=== PATIENT | female | born 1955 | race Caucasian/White ===

== ENCOUNTER 2017-03-27 09:25 | Day surgery (SDC) | payer OTHER, SELFPAY | END 2017-03-27 14:25 | disposition home or self-care (01) | PROVIDERS: Family Provider Family Medicine; Visit Provider Orthopaedic Surgery | DX: G56.02 Carpal tunnel syndrome, left upper limb (principal); M67.432 Ganglion, left wrist | CPT/HCPCS: 64721; 25111; 80048; 96375 ==

== ENCOUNTER → 2017-12-15 08:26 | Outpatient (CLI) | payer OTHER, SELFPAY ==
--- NOTE | 2017-12-15 08:31 | MM_ITS ---
MM Dig screening mamm BI w/CAD ORDERING PHYSICIAN : Maykel Hernandez MD PATIENT AGE: 62 years GENDER: Female COMPARISON: November 2016, May 2012, INDICATION: ITS.REASON: SCREENING no hormones. No new complaints. Previous benign excisional biopsy right breast. Family history. Patient's daughter with breast cancer TECHNIQUE: Standard CC and MLO images were obtained. R2 CAD reviewed. FINDINGS: Moderate density breast with fibrolinear elements most evident at the superior breast bilateral. Stable overall architectural pattern with no suspicious or dominant mass. No suspicious calcifications. RIGHT BREAST:No significant new findings. LEFT BREAST:No significant new findings follow-up in one year Stable mild asymmetry Fibroglandular elements towards the superior breast IMPRESSION: Stable mammogram. No significant new findings either breast. Bilateral follow-up in one year recommended. BI-RADS Category: 1 Negative RECOMMENDED FOLLOW-UP: 1YR 1 YEAR FOLLOW-UP (A letter has been sent to the patient regarding results of the study.)
== END ==
PROVIDERS: PCP Family Medicine; Visit Provider Family Medicine
DX: Z12.31 Encounter for screening mammogram for malignant neoplasm of breast (principal)
CPT/HCPCS: 77067

== ENCOUNTER → 2018-08-05 13:29 | Outpatient (CLI) | payer MEDICARE, OTHER, SELFPAY ==
--- NOTE | 2018-08-05 | CI_ITS ---
Cerebrovascular Exam Indications: 785.9 Bruit. IMPRESSIONS 1. The bilateral vertebral arteries are patent with normal antegrade flow. 2. Study suggests 20-49% stenosis involving the right internal carotid artery. Disease progression from the study of 26-Feb-2007. 3. Study suggests 20-49% (UPPER END)stenosis involving the left internal carotid artery. Disease progression from the study of 26-Feb-2007. 4. Study suggests>50% stenosis involving the left external carotid artery. 5. Bilateral thyroid nodules seen. Suggest dedicated thyroid ultrasound History: Risk factors: Hypertension. Carotid duplex study. Complete study and Doppler flow study including spectral analysis, color and healy scale imaging. Height: Height: 157.5cm. Height: 62in. Weight: Weight: 70.8kg. Weight: 155.7lb. Body mass index: BMI: 28.5kg/m^2. Body surface area: BSA: 1.78m^2. Location: Vascular laboratory. Patient status: Outpatient. Tables: Arterial flow: + +--------+--------+ Location V sys V ed + +--------+--------+ Right CCA - proximal 88cm/s 15.9cm/s + +--------+--------+ Right CCA - distal 93.4cm/s 20cm/s + +--------+--------+ Right ECA 258cm/s 29.1cm/s + +--------+--------+ Right ICA - proximal 112cm/s 27.4cm/s + +--------+--------+ Right ICA - mid 110cm/s 20cm/s + +--------+--------+ Right ICA - distal 91.9cm/s 25.9cm/s + +--------+--------+ Right vertebral 130cm/s 23cm/s + +--------+--------+ Left CCA - proximal 83cm/s 25.9cm/s + +--------+--------+ Left CCA - distal 76.4cm/s 23.7cm/s + +--------+--------+ Left ECA 431cm/s 66.6cm/s + +--------+--------+ Left ICA - proximal 122cm/s 31.9cm/s + +--------+--------+ Left ICA - mid 116cm/s 28.7cm/s + +--------+--------+ Left ICA - distal 106cm/s 32.2cm/s + +--------+--------+ Left vertebral 87.4cm/s 17.5cm/s + +--------+--------+ Velocity ratios: + + + + + + Right, V sys Right, V ed Left, V sys Left, V ed + + + + + + Max ICA/dist CCA 1.2 1.37 1.6 1.36 + + + + + + (Report amended ) Electronically signed by: Buzz Shin [id number]
== END ==
PROVIDERS: PCP Family Medicine; Visit Provider Family Medicine
DX: R09.89 Other specified symptoms and signs involving the circulatory and respiratory systems (principal)
CPT/HCPCS: 93880

== ENCOUNTER 2018-08-21 09:21 | Day surgery (SDC) | payer MEDICARE, OTHER, SELFPAY ==
[2018-08-18 14:08] VITALS: BMI 28.7
[2018-08-21] VITALS (7 sets, daily range): BP systolic 76–150; BP diastolic 50–69; PULSE 59–72; RESP 16–18; TEMP 36.3–36.4; O2SAT 96–98
--- NOTE | 2018-08-21 10:44 | HMH.PROC ---
[facility] Procedure Note Procedure Note:: Colonoscopy Procedure Report: Colonoscopy with cold snare polypectomy Endoscopist: Khanh Hernandez II, MD Referring physician: Andrea Chavarria MD Date of Procedure: August 21, 2018 Equipment: Olympus 180 variable stiffness pediatric colonoscope Sedation: MAC sedation Indication: Mrs. Thomas is a 63-year-old female who is here for screening colonoscopy. She did have a colonoscopy 15 years ago (Dr. Augustus Salvador) and had polyps removed. She does have some mild chronic constipation which is unchanged. She reports no abdominal pain, weight loss, change in her bowel habits or rectal bleeding. She reports no family history of colon cancer but does have a strong family history of cancer. Procedure: Prior to the procedure, a history and physical exam was performed, and patient's medications and allergies were reviewed. The risks, benefits and alternatives of the sedation and procedure were discussed with the patient. All questions were answered and informed consent was obtained. The patient was brought to the procedure room. Patient identification and proposed procedure were verified by the physician and the nurse. The patient was placed in a left lateral decubitus position and the scope was passed under direct vision. Throughout the procedure, the patient's blood pressure, pulse, and oxygen saturations were monitored continuously. The colonoscopy was accomplished without difficulty. The patient tolerated the procedure well. Findings: On digital rectal examination there was normal rectal tone. There were no external hemorrhoids. The colonoscope was introduced through the anal canal to the rectum and advanced to the cecum. The ileocecal valve and appendiceal orifice were identified. The scope was advanced a short distance into the ileum which appeared grossly normal. The scope was then withdrawn into the colon. The cecum, ascending, transverse and descending colon were grossly normal. There was a flat 5 mm polyp in the sigmoid colon removed via cold snare polypectomy. There were no mucosal abnormalities identified. Upon retroflexion within the rectum there were grade 1 internal hemorrhoids.The preparation was excellent throughout with Temple Preparation Score of 9. The cecal time was 12 minutes. Impression: 1. Diminutive sigmoid polyp Plan: I will follow-up the polyp histology and if the polyp is hyperplastic, she will not require surveillance colonoscopy again for 10 years by ACS guidelines. I would consider treatment for her chronic constipation.
== END 2018-08-21 11:41 | disposition home or self-care (01) ==
LOC: OUTP 09:22
PROVIDERS: PCP Family Medicine; Visit Provider Internal Medicine Gastroenterology
PROC: 0DJD8ZZ Inspection of Lower Intestinal Tract, Via Natural or Artificial Opening Endoscopic (ICD-10-PCS; CPT 45378; principal; 2018-08-21 10:30)
DX: Z12.11 Encounter for screening for malignant neoplasm of colon (principal); K59.09 Other constipation; K63.5 Polyp of colon
CPT/HCPCS: 45385; 88305

== ENCOUNTER → 2019-04-14 14:15 | Outpatient (CLI) | payer MEDICARE, SELFPAY ==
[2019-04-14 14:45] LABS: Basophils % 0.5 % (0.1-2.0); Eosinophils # 0.2 K/mm3 (0.0-0.4); Eosinophils % 2.5 % (0.1-12.0); Hematocrit 40.9 % (37.0-47.0); Hemoglobin 13.3 g/dL (12.2-16.2); Lymphocytes # 1.7 K/mm3 (0.7-4.5); Lymphocytes % 27.2 % (10-50); Mean Corpuscular HGB Conc 32.4 g/dL (31.8-35.4); Mean Corpuscular Hemoglobin 31.9 pg (27.0-31.2); Mean Corpuscular Volume 98.7 fl (81-99); Mean Platelet Volume 8.7 fl (7.4-10.4); Monocytes # 0.4 K/mm3 (0.1-1.0); Monocytes % 6.2 % (1.7-9.3); Neutrophils # 3.9 K/mm3 (1.8-7.8); Neutrophils % 63.6 % (37.0-80.0); Platelet Count 339 K/mm3 (142-424); Red Blood Count 4.15 M/mm3 (4.20-5.40); Red Cell Distribution Width 13.2 % (11.5-17.5); White Blood Count 6.1 K/mm3 (4.8-10.8)
[2019-04-14 15:15] LABS: Alanine Aminotransferase 25 U/L (12-78); Albumin Level 3.7 gm/dL (3.4-5.0); Albumin/Globulin Ratio 1.2 (1.1-1.8); Alkaline Phosphatase 104 U/L (46-116); Anion Gap 12.4 mEq/L (5-15); Aspartate Amino Transferase 19 U/L (15-37); Bilirubin,Total 0.3 mg/dL (0.2-1.0); Blood Urea Nitrogen 19 mg/dL (7-18); Calcium 9.2 mg/dL (8.5-10.1); Carbon Dioxide 30 mmol/L (21.0-32.0); Chloride 104 mmol/L (98-107); Chol/HDL Ratio 3.7 (1-3.5); Cholesterol 189 mg/dL (140-200); Creatinine,Serum 0.69 mg/dL (0.55-1.02); Estimated Glomerular Filt Rate 85 ml/min (>60); Free T4 (Free Thyroxine) 0.94 ng/dl (0.76-1.46); GFR (African American) 103 ML/MIN (>60); Globulin 3.2 gm/dl (1.3-3.2); Glucose 88 mg/dL (74-106); HDL Cholesterol 51 mg/dL (29-89); LDL Cholesterol 112 mg/dL (0-130); Potassium 5.4 mmoL/L (3.5-5.1); Sodium 141 mmol/L (136-145); Thyroid Stimulating Hormone 1.79 uIU/ml (0.358-3.740); Total Protein,Serum 6.9 gm/dL (6.4-8.2); Triglycerides 130 mg/dL (30-200); VLDL Cholesterol 26 mg/dL (0-40)
[2019-04-16 09:22] LABS: Vitamin D 25 Hydroxy 37.7 ng/mL (30.0-100.0)
== END ==
PROVIDERS: Visit Provider Emergency Medicine
DX: I10 Essential (primary) hypertension (principal)
CPT/HCPCS: 80053; 80061; 82652; 84439; 84443; 85025

== ENCOUNTER → 2019-04-28 10:52 | Outpatient (CLI) | payer MEDICARE, SELFPAY ==
--- NOTE | 2019-04-28 10:58 | US_ITS ---
PROCEDURE: US THYROID CLINICAL INDICATION: nodules in thyroid COMPARISON: No exams were available for comparison FINDINGS: The right lobe is 4.5 x 1.5 x 1.4 cm. There are multiple hypoechoic nodules in the right lobe representing small cystic lesions. A mixed nodule is present in the upper pole at 5 x 3 mm. In the mid polar region there is an additional mixed nodule at 10 x 5 mm well-circumscribed. In the lower pole there is a hypoechoic nodule measuring 12 x 12 mm with peripheral increased echogenicity which could be due to partial calcification. The nodule is well-circumscribed. This is a T are level 4 nodule. Recommend six-month follow-up as it is less than 1.5 cm. The hypoechoic nodules present in the lower pole at 6 mm. The left lobe is 4.2 x 1.4 x 1.8 cm. A mixed cystic nodules present superiorly at 5 mm. Mostly solid nodule is present inferiorly which is mildly suspicious but less than 2.5 cm. There is an additional 5 mm hypoechoic nodule inferiorly and a 3 mm cyst inferiorly. IMPRESSION: Mildly enlarged thyroid gland with bilateral nodules as described above. Recommend six-month follow-up Dictated by: Buzz Shin MD 04/28/2019 16:37 Electronically signed by Buzz Shin MD in [place] 04/28/2019 16:37
== END ==
PROVIDERS: PCP Emergency Medicine; Visit Provider Emergency Medicine
DX: E04.2 Nontoxic multinodular goiter (principal)
CPT/HCPCS: 76536

== ENCOUNTER → 2019-05-19 16:43 | Outpatient (CLI) | payer MEDICARE, SELFPAY ==
--- NOTE | 2019-05-19 16:48 | XR_ITS ---
PROCEDURE: XR CERVICAL SPINE 4V CLINICAL INDICATION: Neck pain COMPARISON: No exams were available for comparison FINDINGS: There is no acute fracture. There is 1 millimeter anterior subluxation of C3 on C4 and 2 millimeters posterior subluxation C4 on C5. Degenerative disc disease is noted at C4-5 C5-6 C6-7. Spur impingement of left C4-5 C5-6 C6-7 and right C4-5 C5-6 neural foramina are noted. Multilevel hypertrophic facet disease is seen bilaterally from C2-3 to C6-7 IMPRESSION: Multilevel degenerative disc and facet disease. Mild subluxations as described. These are suspected to be degenerative. The degree of subluxation may be physiological. Dictated by: Beau Allen 05/20/2019 09:06 Electronically signed by Beau Allen in [place] 05/20/2019 09:06
== END ==
PROVIDERS: PCP Emergency Medicine; Visit Provider Emergency Medicine
DX: M54.2 Cervicalgia (principal)
CPT/HCPCS: 72050

== ENCOUNTER → 2019-05-21 10:25 | Outpatient (CLI) | payer MEDICARE, SELFPAY ==
--- NOTE | 2019-05-21 10:25 | MM_ITS ---
PROCEDURE: MM DIG SCREENING MAMM BI W/CAD BILATERAL DIGITAL BREAST TOMOSYNTHESIS included Patient Age:63Y CLINICAL INDICATION: screening no hormones. No new complaints. Previous benign surgical excisional biopsy right breast. Family history. Daughter with breast cancer the COMPARISON: BONE BONE DENSITOMETRY(HIP:L.SPINE) from 06/22/2012 [facility] DIGITAL MAMM-SCREEN BILATERAL from 06/22/2012 [facility] DIG MAMM-SCREEN RAYSA from 06/15/2013 [facility] DIG MAMM-SCREEN RAYSA W/CAD from 12/11/2016 [facility] MM Dig screening mamm BI w/CAD from 12/15/2017 TECHNIQUE: Standard CC and MLO images were obtained. R2 CAD reviewed. BILATERAL DIGITAL BREAST TOMOSYNTHESIS included FINDINGS: . Scattered fibroglandular tissue throughout the superior central breast. CAD highlights no new areas of concern. The overlapping parenchyma elements appear yield dense area superior breast on both MLO views but tissue here dissipate on the CC view of with no appreciable change since prior studies with scattered small areas of asymmetry stable Right breast. No new areas of significant concern. Follow-up 1 year Left breast: No new areas of significant concern Small asymmetric focus of density central breast on MLO and another at medial breast CC view appear similar to previous studies but would encourage annual follow-up IMPRESSION: Stable mammogram. With no new areas of significant concern Bilateral follow-up in 1 year recommended and encouraged BI-RAD Category: 2 Benign Finding(s) FOLLOW-UP: 1YR 1 Year Follow-up in the (A letter has been sent to the patient regarding results of the study.) Dictated by: Dontae Snider MD 05/27/2019 11:40 Electronically signed by Dontae Snider MD in [place] 05/27/2019 11:40
== END ==
PROVIDERS: PCP Emergency Medicine; Visit Provider Emergency Medicine
DX: Z12.31 Encounter for screening mammogram for malignant neoplasm of breast (principal)
CPT/HCPCS: 77063; 77067

== ENCOUNTER → 2019-05-24 09:06 | Outpatient (CLI) | payer MEDICARE, SELFPAY ==
--- NOTE | 2019-05-24 09:13 | XR_ITS ---
PROCEDURE: XR KNEE RT 4V CLINICAL INDICATION: Rt knee pain Severe knee pain COMPARISON: No exams were available for comparison FINDINGS: No fracture or dislocation. No lytic or blastic change. There is normal mineralization. Are moderate osteoarthritic changes of the medial and lateral compartment and severe osteoarthritic changes of the patellofemoral joint greater along the lateral patellar femoral articulation. The there is an irregular calcific density superior to the patella at nearly 3 cm and may represent a synovial osteo chondroma. A well-circumscribed calcific density is also noted superior to the patella at 13 mm and could represent an old fracture. Other findings:None. 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
== END ==
PROVIDERS: PCP Emergency Medicine; Visit Provider Orthopaedic Surgery
DX: M25.561 Pain in right knee (principal)
CPT/HCPCS: 73564

== ENCOUNTER → 2019-09-09 15:52 | Outpatient (CLI) | payer MEDICARE, SELFPAY ==
--- NOTE | 2019-09-09 16:03 | XR_ITS ---
PROCEDURE: XR SHOULDER LT MIN 2V CLINICAL INDICATION: Left shoulder pain COMPARISON: No exams were available for comparison FINDINGS: No fracture or dislocation. No lytic or blastic change. There is normal mineralization. The joint spaces are well-preserved. No significant degenerative/arthritic changes. No erosive changes evident. Other findings:None. IMPRESSION: No acute findings. Dictated by: Buzz Shin MD 09/09/2019 17:55 Electronically signed by Buzz Shin MD in [place] 09/09/2019 17:55
== END ==
PROVIDERS: PCP Emergency Medicine; Visit Provider Physician Assistant
DX: M25.512 Pain in left shoulder (principal)
CPT/HCPCS: 73030

== ENCOUNTER → 2019-11-08 13:50 | Outpatient (CLI) | payer MEDICARE, SELFPAY ==
--- NOTE | 2019-11-08 13:51 | US_ITS ---
PROCEDURE: US THYROID CLINICAL INDICATION: 6 mth f/u COMPARISON: US US THYROID from 04/28/2019 FINDINGS: Right lobe: 1.8cm x 4.3cm x 2.0cm. There are multiple right-sided thyroid nodules. The largest is in the lower pole as a complex cystic appearance measuring 16 x 13 mm with some peripheral calcification previously measuring 12 x 12 mm. Suggest FNA due to the increase in size and characteristics of the nodule. T rads level 4. Other smaller nodules are noted with the next largest nodule at 9 mm not significantly changed. Left lobe: 1.5cm x 4.1cm x 1.4cm. There are multiple hypoechoic nodules involving the left lobe with 1 complex cystic and solid nodule in the lower pole at 13 mm not significantly changed.. 1.8 by 1.0 mostly solid nodule noted in the upper pole on the left not significantly changed Isthmus: Additional findings: IMPRESSION: The multiple bilateral thyroid nodules most of which are stable. There is a T rads level 4 nodule on the right which is slightly increased in size. Suggest ultrasound-guided FNA Dictated b Buzz Shin MD 11/09/2019 10:14 Buzz Shin MD in [place] 11/09/2019 10:14
== END ==
PROVIDERS: PCP Emergency Medicine; Visit Provider Emergency Medicine
DX: E04.9 Nontoxic goiter, unspecified (principal)
CPT/HCPCS: 76536

== ENCOUNTER → 2019-12-01 09:53 | Outpatient (CLI) | payer MEDICARE, SELFPAY ==
--- NOTE | 2019-12-01 09:57 | US_ITS ---
PROCEDURE: US FNA THYROID CLINICAL INDICATION: THYROID NODULE COMPARISON: US US THYROID from 11/08/2019 TECHNIQUE: Pre biopsy ultrasound performed demonstrating the suspicious nodule of the right lobe of the thyroid gland. Following obtaining informed consent, using aseptic technique and local anesthesia with buffered lidocaine, fine-needle aspiration was performed of the nodule of interest using sonographic guidance. 3 passes were made into the nodule with a 25-gauge needle. Specimen was given to cytology. FINDINGS: CYTOLOGY: Nondiagnostic specimen. There was scant colloid within the sanguinous background with no follicular groups identified. IMPRESSION: Nondiagnostic aspirate. Repeat FNA could be performed with pathologist present to confirm tissue if clinically desired. The patient tolerated the procedure well without evidence of immediate complications and left the ultrasound suite in stable condition. Dictated by: Buzz Shin MD 12/10/2019 12:57 Buzz Shin MD in [place] 12/10/2019 12:57
== END ==
PROVIDERS: PCP Emergency Medicine; Visit Provider Emergency Medicine
DX: E04.1 Nontoxic single thyroid nodule (principal); R93.89 Abnormal findings on diagnostic imaging of other specified body structures
CPT/HCPCS: 10005; 76942

== ENCOUNTER → 2019-12-23 09:42 | Outpatient (CLI) | payer MEDICARE, SELFPAY ==
--- NOTE | 2019-12-23 09:46 | US_ITS ---
PROCEDURE: US FNA THYROID CLINICAL INDICATION: REPEAT FROM 12/01/19 RT NODULE BX Repeat thyroid biopsy of dominant nodule COMPARISON: US US FNA THYROID from 12/01/2019 TECHNIQUE: Pre biopsy exam once again demonstrates the partially calcified suspicious nodule in the lower pole of the right lobe of the thyroid gland. This was area targeted for biopsy. Pathologist was present to confirm tissue. Following obtaining informed consent, using aseptic technique and local anesthesia with buffered lidocaine, fine-needle aspiration was performed of the nodule of interest using sonographic guidance. Multiple passes made with 21 and 25 gauge needle.. Specimen was given to cytology. Pathologist confirm adequate tissue at biopsy time FINDINGS: CYTOLOGY: Atypical follicular lesion of undetermined significance. Please see pathologist report IMPRESSION: FNA of the right thyroid nodule shows atypical follicular lesion of undetermined significance. Please see cytology report The patient tolerated the procedure well without evidence of immediate complications and left the ultrasound suite in stable condition. Dictated by: Buzz Shin MD 12/27/2019 10:35 Buzz Shin MD in [place] 12/27/2019 10:35
== END ==
PROVIDERS: PCP Emergency Medicine; Visit Provider Emergency Medicine
DX: R89.9 Unspecified abnormal finding in specimens from other organs, systems and tissues (principal); E04.1 Nontoxic single thyroid nodule
CPT/HCPCS: 10005; 76942; 88172; 88173

== ENCOUNTER → 2020-01-03 16:54 | Outpatient (CLI) | payer MEDICARE, SELFPAY ==
[2020-01-03 16:58] LABS: MANUAL DIFFERENTIAL MANUAL DIFFERENTIAL (MANUAL DIFF)
[2020-01-03 17:16] LABS: Basophils % 0.6 % (0.1-2.0); Eosinophils # 0.2 K/mm3 (0.0-0.4); Eosinophils % 2.9 % (0.1-12.0); Hematocrit 39.4 % (37.0-47.0); Hemoglobin 13.2 g/dL (12.2-16.2); Lymphocytes # 2.1 K/mm3 (0.7-4.5); Lymphocytes % 30.2 % (10-50); Mean Corpuscular HGB Conc 33.6 g/dL (31.8-35.4); Mean Corpuscular Hemoglobin 32.8 pg (27.0-31.2); Mean Corpuscular Volume 97.5 fl (81-99); Mean Platelet Volume 8.3 fl (7.4-10.4); Monocytes # 0.4 K/mm3 (0.1-1.0); Monocytes % 6.4 % (1.7-9.3); Neutrophils # 4.1 K/mm3 (1.8-7.8); Neutrophils % 59.9 % (37.0-80.0); Platelet Count 338 K/mm3 (142-424); Red Blood Count 4.04 M/mm3 (4.20-5.40); Red Cell Distribution Width 13.9 % (11.5-17.5); White Blood Count 6.9 K/mm3 (4.8-10.8)
[2020-01-03 18:12] LABS: Chloride 103 mmol/L (98-107)
[2020-01-03 18:13] LABS: Potassium 4.1 mmoL/L (3.5-5.1); Sodium 140 mmol/L (136-145)
[2020-01-03 18:15] LABS: Alanine Aminotransferase 16 U/L (12-78); Albumin Level 4.1 g/dl (3.5-5.0); Alkaline Phosphatase 100 U/L (38-126); Aspartate Amino Transferase 25 U/L (14-36); Bilirubin,Total 0.4 mg/dl (0.2-1.3); Blood Urea Nitrogen 12 mg/dl (7-17); Estimated Glomerular Filt Rate 100 ml/min (>60); GFR (African American) 121 ML/MIN (>60)
[2020-01-03 18:16] LABS: Albumin/Globulin Ratio 1.6 (1.1-1.8); Anion Gap 9.1 mEq/L (5-15); Calcium 9.7 mg/dl (8.4-10.2); Carbon Dioxide 32 mmol/L (22.0-30.0); Globulin 2.6 g/dL (1.3-3.2); Glucose 100 mg/dl (74-100); Total Protein,Serum 6.7 g/dl (6.3-8.2)
[2020-01-03 18:47] LABS: Thyroid Stimulating Hormone 0.09 uIU/mL (0.465-4.68)
[2020-01-03 20:08] LABS: Eosinophils % 1 % (0-3); Lymphocytes % 21 % (10-50); Monocytes % 3 % (2-9); Neutrophils % 75 % (42-76); Platelet Estimate Normal; RBC Morphology Normal; Total Cells Counted 100
[2020-01-03 20:10] LABS: Howell-Jolly Bodies 1+
[2020-01-03 20:13] LABS: Free T4 (Free Thyroxine) 0.93 ng/dl (0.78-2.19)
[2020-01-05 13:19] LABS: Thyroid Peroxidase Antibodies <9 IU/mL (0-34)
[2020-01-06 10:26] LABS: Calcium, Ionized 5.4 mg/dL (4.5-5.6)
[2020-01-06 10:27] LABS: Thyroid Stimulating Immunoglob <0.10 IU/L (0.00-0.55)
[2020-01-06 15:24] LABS: Calcitonin <2.0 pg/mL (0.0-5.0)
== END ==
PROVIDERS: Visit Provider Otolaryngology
DX: D49.7 Neoplasm of unspecified behavior of endocrine glands and other parts of nervous system (principal); E04.1 Nontoxic single thyroid nodule; E04.9 Nontoxic goiter, unspecified
CPT/HCPCS: 36415; 80053; 82308; 82330; 84439; 84443; 84445; 85007; 85014; 85018; 85048; 85049; 86376

== ENCOUNTER → 2020-02-01 15:28 | Outpatient (CLI) | payer MEDICARE, SELFPAY ==
--- NOTE | 2020-02-01 15:29 | US_ITS ---
PROCEDURE: US THYROID CLINICAL INDICATION: thyroid nodule 1.6 Follow-up thyroid nodule COMPARISON: US US THYROID from 04/28/2019 US US THYROID from 11/08/2019 US US FNA THYROID from 12/23/2019 FINDINGS: The right lobe is 4.4 x 1.7 x 1.8 cm. There are multiple small nodules apparent which have benign appearance and are not significantly changed. The previously biopsied nodule in the lower pole is once again noted measuring 14 x 12 mm with some peripheral calcification and decreased echogenicity. This is not significantly changed compared to 11/08/2019. The left lobe of the thyroid gland measures 4.5 x 1.7 x 1.5 cm. The there is a solid-appearing nodule in the upper pole measuring 17 by 12 mm not significantly changed. Smaller benign-appearing nodules are present in the left lobe. There is an additional 14 x 7 mm solid nodule in the left lobe inferiorly not significantly changed. IMPRESSION: No change multinodular goiter. Specifically, there has been no change in the previously biopsied nodule in the lower pole on the right. Dictated by: Buzz Shin MD 02/02/2020 13:21 Buzz Shin MD in [place] 02/02/2020 13:21
== END ==
PROVIDERS: PCP Emergency Medicine; Visit Provider Otolaryngology
DX: E04.1 Nontoxic single thyroid nodule (principal); E04.9 Nontoxic goiter, unspecified
CPT/HCPCS: 76536

== ENCOUNTER → 2020-02-09 08:34 | Outpatient (CLI) | payer MEDICARE, SELFPAY ==
--- NOTE | 2020-02-09 08:57 | ECG_ITS ---
APPROVED REPORT Exam: Resting ECG HR:63 bpm ECG Measurements Heart Rate 63 AXES AL 142 P 63 QRSd 88 QRS 85 QT 420 T 57 QTc 429 Conclusion Normal sinus rhythm Normal ECG Electronically signed by : Sanjay Segura, 02/11/2020 17:00:20
[2020-02-09 09:23] LABS: Basophils % 0.4 % (0.1-2.0); Eosinophils # 0.1 K/mm3 (0.0-0.4); Eosinophils % 2.1 % (0.1-12.0); Hematocrit 38.1 % (37.0-47.0); Lymphocytes # 1.5 K/mm3 (0.7-4.5); Lymphocytes % 22.2 % (10-50); Mean Corpuscular HGB Conc 31.4 g/dL (31.8-35.4); Mean Corpuscular Hemoglobin 30.9 pg (27.0-31.2); Mean Corpuscular Volume 98.3 fl (81-99); Mean Platelet Volume 7.8 fl (7.4-10.4); Monocytes # 0.4 K/mm3 (0.1-1.0); Monocytes % 6.3 % (1.7-9.3); Neutrophils # 4.7 K/mm3 (1.8-7.8); Neutrophils % 68.9 % (37.0-80.0); Platelet Count 321 K/mm3 (142-424); Red Blood Count 3.87 M/mm3 (4.20-5.40); Red Cell Distribution Width 13.4 % (11.5-17.5); White Blood Count 6.7 K/mm3 (4.8-10.8)
[2020-02-09 09:56] LABS: Chloride 102 mmol/L (98-107); Potassium 4.2 mmoL/L (3.5-5.1); Sodium 138 mmol/L (136-145)
[2020-02-09 09:59] LABS: Blood Urea Nitrogen 14 mg/dl (7-17); Estimated Glomerular Filt Rate 100 ml/min (>60); GFR (African American) 121 ML/MIN (>60)
[2020-02-09 10:00] LABS: Anion Gap 10.2 mEq/L (5-15); Calcium 9.1 mg/dl (8.4-10.2); Carbon Dioxide 30 mmol/L (22.0-30.0); Glucose 95 mg/dl (74-100)
[2020-02-09 15:10] LABS: Coronavirus 19 IgG Antibody Negative (Negative); Coronavirus 19 IgM Antibody Negative (Negative)
== END ==
PROVIDERS: Visit Provider Otolaryngology
DX: Z01.818 Encounter for other preprocedural examination (principal); E04.1 Nontoxic single thyroid nodule; E04.9 Nontoxic goiter, unspecified
CPT/HCPCS: 36415; 80048; 85025; 86328; 93005

== ENCOUNTER 2020-02-10 09:46 | Observation (INO) | payer MEDICARE, SELFPAY ==
[2020-02-08 14:26] VITALS: BMI 27.2
[2020-02-10] VITALS (26 sets, daily range): BP systolic 148–205; BP diastolic 72–123; PULSE 67–91; RESP 16–18; TEMP 36.4–37.1; O2SAT 92–100
--- NOTE | 2020-02-10 11:09 | HMH.ANESCL ---
[facility] Anesthesia Checklist - Patient Identification Patient Identification: Arm Band - Structural Data Admitted From: Home Planned Operative Procedure/s: Thyroidectomy Consent for Planned Operative Procedure(s) Verified: Yes Verified Documents: Surgical Consent, History and Physical - NPO Status Verified Time NPO: 00:00 - Additional verifications Anesthesia Reactions: No Hx Blood Transfusions: No Blood Transfusion Reaction: No - Airway Assessment C-Spine Mobility Assessed: Yes (mp2) TMJ Mobility Assessed: Yes Dentition: Good Dentition - Neurological Assessment Level of Consciousness: Awake, Alert - Anesthesia Plan Anesthesia Risk discussed: Yes Anesthesia Plan: Verified ASA Class: II Anesthesia Type: General [facility] History Medical History: Reports:: Gastroesophageal Reflux Disease(GERD), Hyperlipidemia, Hypertension Denies:: Cancer, Diabetes Mellitus Type 1, Diabetes Mellitus Type 2, Internal Pacemaker, Lung Disease, MRSA, Seizures *Have you ever received a pneumonia vaccine?: No *Have you received a flu vaccine this season?: Yes Other Medical History: Reports: Arthritis. Denies: Blood Transfusion Reaction Anesthesia experience/problems:: nac Laterality Cases: Left: Arthroscopy Hip, Total Hip Replacement, Bilateral: Carpal Tunnel Release, Other Other Surgeries: Yes: Cholecystectomy, Colonoscopy, Hysterectomy-Total, Other. No: Pacemaker Amputation: No Fractures: No - *Social History Last grade of school completed: 9th or 10th Smoking Status: Former smoker Alcohol Intake: never Substance Use Type: denies use *Occupational Status:: disabled Housing: house Household Members: family *Travel in the last 8 weeks: None Family Hx:: Hypertension, Heart Attack, Cancer, Stroke, Diabetes
--- NOTE | 2020-02-10 12:22 | P.OP_ITS ---
Date of procedure: 02/10/20 Pre-op Diagnosis:: Calcified nodule right lobe of the thyroid with atypical cells Post-op Diagnosis:: Same Procedure performed:: Total right thyroid lobectomy with frozen section analysis= deferred Surgeon:: Pasquale Lawrence MD ANALYTICAL LABORATORY TECHNICIAN:: Robbie Molina Anesthesia: GETA Estimated blood loss (mL): 20 Operative findings:: same Operative note:: With the patient under general anesthetic using a nerve monitoring endotracheal tube the neck was prepped with Betadine and draped. A minimally invasive thyroid incision was marked out and skin and subcutaneous tissue and platysma were incised. The strap muscles were identified on each side and divided. The sternomastoid muscles were identified on each side and retracted. The right lobe of the thyroid was examined it was extremely nodular and there was a very hard calcified nodule as the dominant nodule. The superior vascular pedicle was identified and doubly ligated the superior parathyroid gland was identified and retained in situ. The right middle thyroid vein was divided the right inferior thyroid veins could then be accessed and they were both divided, the trachea was identified, the inferior thyroid artery was identified as was the right recurrent laryngeal nerve. The nerve was stimulated in a positive fashion on several occasions and followed through to where it entered the cricothyroid membrane of the larynx. The inferior thyroid artery was also ligated and divided. The right thyroid lobe was removed in entirety and submitted for frozen section analysis and deferred because of the calcified nodule. Atypical cells were seen but no cancer cells were seen on the frozen section. The wound was thoroughly irrigated all bleeding was stopped blood loss was less than 20 cc Surgicel snow was placed in the prevertebral area on the right side and the strap muscles were repaired on each side the platysma and subcutaneous layer was repaired with 2-0 Vicryl and a 10 mm millimeter Toñito-Dominguez drain was placed and hooked to suction. The patient tolerated the procedure well and was sent to recovery in good general condition. Condition: stable Disposition: PACU Complications:: none
--- NOTE | 2020-02-10 12:40 | P.PN_ITS ---
[facility] Anesthesia Record Part I Intake, IV Amount: 1,200 Estimated blood loss (mL): 10 Urine output (mL): 0 Blood Products used (#): none Blood Pressure: 189/99 SaO2: 92 Pulse Rate: 88 Respiratory Rate: 16 Temperature: 97.5 F Patient is:: Drowsy, Stable Stable to PACU at:: 13:35
--- NOTE | 2020-02-10 13:15 | PC.NURSE ---
FERCHO DRAINS WITH SMALL AMT OF SANGUINOUS DRAINAGE IN TUBING, SCANT IN BULB.
--- NOTE | 2020-02-10 13:20 | PC.NURSE ---
1320 Report received from JAYESH Gomez in the PACU.
--- NOTE | 2020-02-10 13:30 | SUR.PHASEI ---
REPORT CALLED TO THOMAS ON OB FLOOR. PT ALERT AND ORIENTED, DRESSING C/D/I. FERCHO PATENT WITH SCANT AMT OF SANGUINOUS DRAINAGE. REPORTING SOME ACHING PAIN AT 3. STABLE
--- NOTE | 2020-02-10 13:46 | PC.NURSE ---
1335 Pt to department at this time, dressing to throat is C/D/I without any drainage noted. Scant amount of serosang drainage noted in FERCHO drain, hooked to wall suction at [facility] per MD order. Pt is drowsy but easily arouses. Bed locked and in lowest position with side rails up x2. Pt oriented to room, call light placed within reach.
--- NOTE | 2020-02-10 14:49 | P.PN_ITS ---
[facility] Anesthesia Record Part II Discharge Time: 13:30 Destination: Medical Surgical Department PACU nurse assessment reviewed?: Yes Patient Condition:: Good Anesthesia Complications:: None Swallowing reflex intact?: Yes Cyanosis?: No Blood Pressure: 169/98 Pulse Rate: 77 Temperature: 97.7 F Mental Status: Alert & Oriented Pain level:: 3 Nausea and/or vomitting:: None Intake, IV Amount: 0
--- NOTE | 2020-02-10 15:31 | SUR.OPER ---
1214-Dr. Lawrence spoke on phone with pathologist at this time
--- NOTE | 2020-02-10 16:17 | PC.NURSE ---
1610 RN reassessment completed at this time. Pt reports pain in her throat as a 4 on a 0-10 scale at this time, reports this is tolerable for her. Pt received morphine 1 mg this shift for pain that was a 6 on a 0-10 scale and reported decrease in pain on reassessment. Pt is aware of pain management options. Pt has tolerated full liquid diet well and will be advanced to a soft diet for dinner per MD order. Dressing to throat is C/D/I with no drainage noted. FERCHO drain connected to med-high wall suction with increased serosang. drainage noted in tube, none has collected in the bucket thus far, will continue to monitor. 20 G IV patent to right forearm and infusing LR 100 ml/hr, will D/C fluids when pt begins to increase fluid intake per MD order. BP has been elevated this shift and Dr. Lawrence is aware, consult in for primary physician, pt is aware of this. Pt reports that she checks her blood pressure at home and is typically in the 180-190 range systolic, will make MD aware of this as well.
--- NOTE | 2020-02-10 17:02 | PC.NURSE ---
1635 Attempted to wean pt to room air at this time. Pt initially was able to achieve an oxygen saturation of 97% but after several minutes went to 92-93% range. 2L NC reapplied.
--- NOTE | 2020-02-10 17:04 | PC.NURSE ---
1700 Pt tolerated ambulation to BR and back to bed well with stand by assistance. Pt voided a large amount and is tolerating liquids well, IV S/L per MD order.
--- NOTE | 2020-02-10 19:25 | PC.NURSE ---
DR. SORTO AT BEDSIDE AT THIS TIME. REPORT GIVEN AT THIS TIME. HE STATES THAT HE WILL ENTER AN ORDER FOR HER HIGH BP.
--- NOTE | 2020-02-10 19:34 | HMH.ACPN2 ---
Internal Medicine - PN: Subj *Date: 02/10/20 *Time: 19:36 Interval history: Was seen this evening in consultation per Dr. Lawrence for elevated blood pressure. Primary care physician is Dr. Simpson. She has been treated for hypertension, is currently on losartan 50 mg daily as well as Lasix 20 mg twice daily as needed for lower extremity edema. She did take her losartan this morning. Systolic pressures have been in the high 190s. She was given labetalol IV per anesthesia. Patient denies chest pain, shortness of breath, and is relatively comfortable. She is status post right thyroid lobectomy, has a drainage tube which is returning serosanguineous fluid. She is awake, lucid, clear and cooperative. Exam Vital signs and Labs for Last 24 Hours: Temp Pulse Resp BP Pulse Ox 98.8 F 89 18 199/86 H 95 02/10/20 18:35 02/10/20 18:35 02/10/20 18:35 02/10/20 18:35 02/10/20 18:35 I & O for Last 24 hours: Intake & Output 02/07/20 02/08/20 02/09/20 02/10/20 23:59 23:59 23:59 23:59 Intake Total 1300 / 1300 Output Total Balance 1299 / 1299 Weight 149 lb - Constitutional no acute distress - *Routine HEENT Exam Head: Present: normocephalic Eye: Absent: conjunctival icterus ENT: Present: mucous membranes moist - *Routine Neck Exam Present: tenderness, swelling Comments: Surgical drain as described. Nurses report no technical issues. - *Routine Respiratory Exam Present: CTA bilaterally - *Routine Cardiovascular Exam Present: RRR - *Routine Abdominal Exam Present: soft, normoactive bowel sounds. Absent: tenderness - *Routine Extremities Exam Present: MEÑO stockings. Absent: cyanosis, clubbing, edema, calf tenderness - *Routine Skin Exam Present: warm. Absent: cyanosis, erythema, pallor, rash - *Routine Neurological Exam Present: alert, oriented X3. Absent: sensory deficit - Routine Psychiatric Exam Present: normal affect, cooperative, good insight Assessment and Plan (1) Hypertension Status: Acute Category: Medical Code(s): I10 - Essential (primary) hypertension - Assessment and plan all Dx Assessment and Plan for all problems:: Patient appears euvolemic in her extremities. Compression boots are in place. Distal perfusion looks adequate. Will restart her losartan, uptitrating her to the 100 mg dose. Will also add hydralazine 50 mg 3 times daily and gauge her response. Will look at labs, electrolytes and kidney function. We will be in to revisit her in the morning. Thank you Dr. Lawrence
--- NOTE | 2020-02-10 20:18 | PC.NURSE ---
PT MEDICATED PER EMAR AT THIS TIME R/T PAIN 6/10 ON VERBAL SCALE. PT ASSESSED AT THIS TIME. BILATERAL LUNG SOUNDS CLEAR. NO EDEMA NOTED. PT HAS A DRESSING COVERING THE INCISION ON HER THROAT AND A FERCHO DRAIN IS ATTACHED AND HOOKED TO 100 CONTINUOUS WALL SUCTION. 60 ML OF SEROUS BLOOD NOTED IN CANISTER AT THIS TIME. INCISIONAL DRESSING IS C/D/I WITH A SCANT AMOUNT OF SEROUS DRAINAGE ON R UPPER CORNER OF DRESSING. PT HAS AN INTERMITTENT NONPRODUCTIVE COUGH. PT ASSISTED ON TO BED BLISS AT THIS TIME AND VOIDED A MODERATE AMOUNT. WILL CONTINUE TO OBSERVE.
--- NOTE | 2020-02-10 22:27 | PC.NURSE ---
PT REQUESTS SOMETHING FOR COUGH AT THIS TIME. DR. SORTO CALLED AT THIS TIME. ORDER RECEIVED AND REPEATED BACK.
--- NOTE | 2020-02-10 22:27 | PC.NURSE ---
PT MEDICATED PER EMAR AT THIS TIME FOR PRN COUGH MEDICATION. PT PLACED ON BED BLISS AT THIS TIME.
--- NOTE | 2020-02-10 23:41 | PC.NURSE ---
PT MEDICATED PER EMAR AT THIS TIME R/T PAIN 08/07. PT HAS BEEN UP IN CHAIR AND HAS AMBULATED TO BR AND BACK TO BED. BP NOTED TO BE ELEVATED. WILL CONTINUE TO OBSERVE.
[2020-02-11] VITALS: BP 199/80; PULSE 83; RESP 18; TEMP 36.7; O2SAT 98
--- NOTE | 2020-02-11 03:58 | PC.NURSE ---
PT MEDICATED PER EMAR AT THIS TIME R/T PAIN 5/10 ON VERBAL SCALE. REASSESSED AT THIS TIME NO CHANGES NOTED. INCISIONAL DRESSING C/D/I. FERCHO DRAIN IS ON CONTINUOUS SUCTION AT 100. 80 ML OF SEROUS DRAINAGE NOTED IN CANISTER. PT DENIES ANY FURTHER NEEDS AT THIS TIME. WILL CONTINUE TO OBSERVE.
[2020-02-11 04:00] VITALS: BP 164/70; PULSE 70; RESP 19; TEMP 36.6; O2SAT 96
[2020-02-11 05:00] VITALS: BMI 28.3
--- NOTE | 2020-02-11 07:37 | P.CONPHA_ITS ---
[facility] Pharmacy VTE Monitoring - Patient Demographics Admission date: 02/10/20 Report Date: 02/11/20 Time: 07:37 Allergies/Adverse Reactions: Patient Allergies lisinopril Adverse Reaction (Severe, Verified 02/10/20 09:06) cough Height: 1.57 m Weight: 69.8 kg Patient Problems: Current Active Problems Hypertension (Acute) - VTE Risk VTE Score: 2 VTE Risk Level: Very Low Risk - Prophylaxis VTE Prophylaxis Ordered?: Yes Types of VTE Prophylaxis: TEDS Knee High Location of Applied Device: Bilateral Lower Extremeties
--- NOTE | 2020-02-11 07:47 | PC.NURSE ---
Patient resting in bed with meal tray. Denies needs at this time. Will continue to monitor.
[2020-02-11 07:58] VITALS: O2SAT 97
[2020-02-11 08:00] VITALS: BP 169/63; PULSE 80; RESP 20; TEMP 36.9; O2SAT 97
--- NOTE | 2020-02-11 08:05 | PC.NURSE ---
LAB AT BEDSIDE AT THIS TIME
--- NOTE | 2020-02-11 08:20 | PC.NURSE ---
JIMMIE DURON CALLED AT THIS TIME AND GOT REPORT. STATED SHE WOULD BE UP SHORTLY TO REMOVE THE FERCHO DRAIN.
[2020-02-11 08:24] LABS: Chloride 101 mmol/L (98-107); Potassium 3.6 mmoL/L (3.5-5.1); Sodium 139 mmol/L (136-145)
[2020-02-11 08:27] LABS: Alanine Aminotransferase 25 U/L (12-78); Albumin/Globulin Ratio 1.4 (1.1-1.8); Alkaline Phosphatase 79 U/L (38-126); Anion Gap 11.6 mEq/L (5-15); Aspartate Amino Transferase 30 U/L (14-36); Bilirubin,Total 0.3 mg/dl (0.2-1.3); Blood Urea Nitrogen 11 mg/dl (7-17); Carbon Dioxide 30 mmol/L (22.0-30.0); Creatinine Clearance Estimated 61 mL/min (50-200); Estimated Glomerular Filt Rate 100 ml/min (>60); GFR (African American) 121 ML/MIN (>60); Globulin 2.9 g/dL (1.3-3.2); Total Protein,Serum 6.9 g/dl (6.3-8.2)
[2020-02-11 08:28] LABS: Calcium 9.2 mg/dl (8.4-10.2); Glucose 171 mg/dl (74-100)
--- NOTE | 2020-02-11 09:15 | PC.NURSE ---
JIMMIE NGUYEN RN AT BEDSIDE. SHE REMOVED THE SURGICAL DRESSING AND FERCHO DRAIN. 80ML TOTAL WAS COLLECTED. PATIENT TOLERATED PROCEDURE WELL. SHE ALSO REAPPLIED A NEW DRESSING AT THIS TIME. PATIENT HAS NO OTHER CONCERNS OR COMPLAINTS. WILL CONTINUE TO MONITOR.
--- NOTE | 2020-02-11 09:36 | PC.NURSE ---
80 ML WAS COLLECTED TOTAL FROM FERCHO DRAIN. THIS WAS DOCUMENTED ON A PREVIOUS SHIFT. NO ADDITIONAL OUTPUT WAS NOTED BEFORE DRAIN WAS REMOVED.
--- NOTE | 2020-02-11 09:36 | HMH.DCSUM ---
General - General Admission date:: 02/10/20 Discharge date: 02/11/20 HPI HPI: Pt admitted overnight after having Total right tyroid lobeectomy for calcified nodule in right lobe. Frozen section came back deferred. Hospital Course Hospital Course: Pt was admitted 23 hour observation after having total right thyroid lobectomy on 02/10/20. Pt done well overnight aside from some elevation of blood pressure in which dr Enriquez was consulted. Pt's pain was maintained with po and IV medication overnight. This am drain was pulled and shoiwed approx 80ml output. Pt tolerated this well. Incision site free from s/s of infection. Dresing of telfa/tegaderm applied. Home inst given and explained. Pt will be prescribed [place], synthroid and caltrate D and instructed on all. Pt encouraged to call for any concerns. Pt will follow back up next week in Specialty clinic. Objective Vital signs: Temp Pulse Resp BP Pulse Ox 98.5 F 80 20 169/63 H 97 02/11/20 08:00 02/11/20 08:00 02/11/20 08:00 02/11/20 08:00 02/11/20 08:00 - *Routine HEENT Exam Eye: Present: PERRL ENT: Present: mucous membranes moist Comments: surgery site lower neck. FERCHO drain in place and removed at this time. telfa/tegaderm dsg placed. Results Labs on day of discharge: Labs from last 24 hours 02/11/20 07:55 Sodium 139 Potassium 3.6 Chloride 101 Carbon Dioxide 30 Anion Gap 11.6 BUN 11 Creatinine 0.60 Estimated Creat Clear 61 Estimated GFR 100 Est GFR ( Amer) 121 Glucose 171 H Calcium 9.2 Total Bilirubin 0.3 AST 30 ALT 25 Alkaline Phosphatase 79 Total Protein 6.9 Albumin 4.0 Globulin 2.9 Albumin/Globulin Ratio 1.4 DS: Diagnosis - Discharge Diagnosis (1) Hypertension Status: Acute (2) Status post subtotal thyroidectomy Status: Acute Discharge Plan - Patient Discharge Instructions ACTIVITY: Continue current activity DIET: advance to your usual diet Additional Instructions: leave dressing over site until follow up. watch for s/s of infection. Take Synthroid daily, take pain medication as needed, take Caltrate twice daily for 2 weeks then may stop this med. Call for any concerns. - Follow up Plan Follow up with: Pasquale Lawrence MD [Staff Physician] - 1 week Disposition: Home, Self-Group Home Medications: Home Medications Medication Instructions Recorded Confirmed Type biotin 1,000 mcg chewable tablet 1,000 mcg PO QDAY each 04/10/17 02/10/20 History chlorpheniramine maleate 4 mg 4 mg PO Q6H 04/10/17 02/10/20 History tablet cyanocobalamin (vitamin B-12) 100 100 mcg PO ONCE 04/10/17 02/10/20 History mcg tablet docusate sodium 100 mg capsule 100 mg PO QDAY PRN 04/10/17 02/10/20 History esomeprazole magnesium 40 mg 40 mg PO QDAY cap 04/10/17 02/10/20 History capsule,delayed release multivitamin,gx-lkbv-jpddvlxh 1 tab PO QDAY 04/10/17 02/10/20 History simethicone 80 mg chewable tablet 80 mg PO ONCE PRN 04/10/17 02/10/20 History vit C,E,zinc,copper-dbqzw2j 250 1 cap PO ONCE each 04/10/17 02/10/20 History mg-lutein 5 mg-zeaxanthin 1 mg capsule potassium chloride 20 mEq 20 meq PO QDAY #90 tab 09/28/19 02/10/20 Rx tablet,extended release atorvastatin 40 mg tablet 40 mg PO QDAY #90 tab 11/11/19 02/10/20 Rx gabapentin 600 mg tablet 600 mg PO TID #90 tab 11/15/19 02/10/20 Rx Baclofen 20 mg PO TID 02/08/20 02/10/20 History Fluoxetine HCl [Prozac] See Rx Instructions .ROUTE .COMPLEX 02/08/20 02/10/20 History Furosemide [Furosemide 20mg Tab*] See Rx Instructions .ROUTE .COMPLEX 02/08/20 02/10/20 History Losartan Potassium [Cozaar 50mg 50 mg PO DAILY 02/08/20 02/08/20 History Tablets] Calcium Carbonate/Vitamin D3 500 mg PO BID #28 tab 02/11/20 Rx [Oscal +D 500mg Tab] Hydrocod/Acet 5/325 mg [[place] 1 tab PO Q6HP PRN #22 tablet 02/11/20 Rx 5/325mg tablet] Levothyroxine Sodium [Synthroid 125 mcg PO DAILY #30 tab 02/11/20 Rx 125mcg (0.125mg) tablet
--- NOTE | 2020-02-11 10:30 | PC.NURSE ---
NASAL CANULA REMOVED AT 1010 AND O2 SAT REMAINED 95% AND ABOVE FOR 20 MINUTES.
--- NOTE | 2020-02-11 10:32 | PC.NURSE ---
IV DISCONTINUED AT THIS TIME. PATIENT TOLERATED WELL. NO OTHER CONCERNS VOICED.
--- NOTE | 2020-02-11 11:00 | PC.NURSE ---
JIMMIE NGUYEN RN CALLED CONCERNING DRAINAGE ON PATIENT'S DRESSING. DRESSING HAD 20% SATURATION WITH BLOODY DRAINAGE. SHE STATED THAT SHE WILL BE UP TO LOOK AT IT BEFORE DISCHARGE
--- NOTE | 2020-02-11 11:00 | PC.NURSE ---
all charting and care done under my direct supervision .
--- NOTE | 2020-02-11 11:08 | PC.NURSE ---
JIMMIE NGUYEN RN AT BEDSIDE. DRESSING CHANGED. PATIENT READY FOR DISCHARGE.
--- NOTE | 2020-02-11 11:18 | HMH.ACPN2 ---
Internal Medicine - PN: Subj *Date: 02/11/20 *Time: 08:18 Interval history: pt sitting up in bed voiced no c/o. Per pt her bp has improved Exam Vital signs and Labs for Last 24 Hours: Temp Pulse Resp BP Pulse Ox 98.5 F 80 20 169/63 H 97 02/11/20 08:00 02/11/20 08:00 02/11/20 08:00 02/11/20 08:00 02/11/20 08:00 Laboratory Results - last 24 hr 02/11/20 07:55: Sodium 139, Potassium 3.6, Chloride 101, Carbon Dioxide 30, Anion Gap 11.6, BUN 11, Creatinine 0.60, Estimated Creat Clear 61, Estimated GFR 100, Est GFR ( Amer) 121, Glucose 171 H, Calcium 9.2, Total Bilirubin 0.3, AST 30, ALT 25, Alkaline Phosphatase 79, Total Protein 6.9, Albumin 4.0, Globulin 2.9, Albumin/Globulin Ratio 1.4 I & O for Last 24 hours: Intake & Output 02/08/20 02/09/20 02/10/20 02/11/20 11:59 11:59 11:59 11:59 Intake Total 1300 / 1300 Output Total 81 / 81 Balance 1219 / 1219 Weight 149 lb 153 lb 14.122 oz - Constitutional no acute distress - *Routine HEENT Exam Head: Present: normocephalic Eye: Present: PERRL ENT: Present: mucous membranes moist - *Routine Neck Exam Present: supple. Absent: lymphadenopathy Comments: dressing to neck and drain in place - *Routine Respiratory Exam Present: CTA bilaterally - *Routine Cardiovascular Exam Present: RRR - *Routine Abdominal Exam Present: soft, normoactive bowel sounds. Absent: tenderness - *Routine Extremities Exam Present: normal capillary refill. Absent: cyanosis, clubbing, edema - *Routine Skin Exam Present: warm. Absent: rash Comments: dressing to neck - *Routine Neurological Exam Present: alert, oriented X3 - Routine Psychiatric Exam Present: normal affect Assessment and Plan (1) Hypertension Status: Acute Category: Medical Code(s): I10 - Essential (primary) hypertension (2) Status post subtotal thyroidectomy Status: Acute Category: Surgical Code(s): Z98.890 - Other specified postprocedural states - Assessment and plan all Dx Assessment and Plan for all problems:: rounded with dr phelan all orders per dr phelan hydralazine hcl 50 mg po tid
--- NOTE | 2020-02-28 16:50 | HMH.HP ---
*Admission Date: 02/10/20 *Chief complaint: abnormal fine need biopsy of the thyroid *History of present illness: Pt admitted overnight after having Total right tyroid lobeectomy for calcified nodule in right lobe. Frozen section came back deferred. [facility] History Medical History: Reports:: Gastroesophageal Reflux Disease(GERD), Hyperlipidemia, Hypertension Denies:: Cancer, Diabetes Mellitus Type 1, Diabetes Mellitus Type 2, Internal Pacemaker, Lung Disease, MRSA, Seizures *Have you ever received a pneumonia vaccine?: No *Have you received a flu vaccine this season?: No Other Medical History: Reports: Arthritis. Denies: Blood Transfusion Reaction Anesthesia experience/problems:: nac Laterality Cases: Left: Arthroscopy Hip, Total Hip Replacement, Bilateral: Carpal Tunnel Release, Other Other Surgeries: Yes: Cholecystectomy, Colonoscopy, Hysterectomy-Total, Other. No: Pacemaker Amputation: No Fractures: No - *Social History Last grade of school completed: 9th or 10th Smoking Status: Former smoker Alcohol Intake: never Substance Use Type: denies use *Occupational Status:: retired Housing: house Household Members: family *Travel in the last 8 weeks: None Family Hx:: Hypertension, Heart Attack, Cancer, Stroke, Diabetes Review of Systems - ENT Comments: Fine-needle biopsy showed follicular cells of the thyroid. Dominant nodule is on the right side of the thyroid. patient has additional nodules present. Patient will undergo thyroidectomy to remove the right side, frozen section will be present at time of surgery. Meds Home Medications Medication Instructions Recorded Confirmed Type biotin 1,000 mcg chewable tablet 1,000 mcg PO QDAY each 04/10/17 02/23/20 History chlorpheniramine maleate 4 mg 4 mg PO Q6H 04/10/17 02/23/20 History tablet cyanocobalamin (vitamin B-12) 100 100 mcg PO ONCE 04/10/17 02/23/20 History mcg tablet docusate sodium 100 mg capsule 100 mg PO QDAY PRN 04/10/17 02/23/20 History esomeprazole magnesium 40 mg 40 mg PO QDAY cap 04/10/17 02/23/20 History capsule,delayed release multivitamin,yr-wsnd-apntwhyl 1 tab PO QDAY 04/10/17 02/23/20 History simethicone 80 mg chewable tablet 80 mg PO ONCE PRN 04/10/17 02/23/20 History vit C,E,zinc,copper-jppid5n 250 1 cap PO ONCE each 04/10/17 02/23/20 History mg-lutein 5 mg-zeaxanthin 1 mg capsule potassium chloride 20 mEq 20 meq PO QDAY #90 tab 09/28/19 02/23/20 Rx tablet,extended release atorvastatin 40 mg tablet 40 mg PO QDAY #90 tab 11/11/19 02/23/20 Rx Baclofen 20 mg PO TID 02/08/20 02/23/20 History Fluoxetine HCl [Prozac] See Rx Instructions .ROUTE .COMPLEX 02/08/20 02/23/20 History Furosemide [Furosemide 20mg Tab*] See Rx Instructions .ROUTE .COMPLEX 02/08/20 02/23/20 History Losartan Potassium [Cozaar 50mg 50 mg PO DAILY 02/08/20 02/23/20 History Tablets] Calcium Carbonate/Vitamin D3 500 mg PO BID #28 tab 02/11/20 02/23/20 Rx [Oscal +D 500mg Tab] Hydralazine HCl [Hydralazine HCl 50 mg PO TID tab 02/11/20 02/23/20 Rx 25mg Tablet] Levothyroxine Sodium [Synthroid 125 mcg PO DAILY #30 tab 02/11/20 02/23/20 Rx 125mcg (0.125mg) tablet] amlodipine 5 mg tablet 5 mg PO QHS #90 tab 02/23/20 02/23/20 Rx gabapentin 600 mg tablet 600 mg PO TID #90 tab 02/23/20 02/23/20 Rx Allergies Allergy/AdvReac Type Severity Reaction Status Date / Time lisinopril AdvReac Severe cough Verified 02/23/20 10:29 Exam Vital signs and Labs for Last 24 Hours: Temp Pulse Resp BP Pulse Ox 98.5 F 80 20 169/63 H 97 02/11/20 08:00 02/11/20 08:00 02/11/20 08:00 02/11/20 08:00 02/11/20 08:00 - *Routine HEENT Exam Head: Present: normocephalic Eye: Present: EOMI, PERRL ENT: Present: mucous membranes moist Comments: All within normal limits. Follicular cells on the fine-needle biopsy of the right thyroid nodule noted. Thyroidectomy scheduled for 02/10/2020 - *Routine Neck Exam Present: supple. Absent: lymphadenopathy
== END 2020-02-11 11:14 | disposition home or self-care (01) | DRG 627 ==
LOC: OB 09:49
PROVIDERS: Family Medicine; Admitting Provider Otolaryngology; PCP Emergency Medicine; Visit Provider Otolaryngology
PROC: 0GBH0ZX Excision of Right Thyroid Gland Lobe, Open Approach, Diagnostic (ICD-10-PCS; CPT 60210; principal; 2020-02-10 10:30)
DX: E04.1 Nontoxic single thyroid nodule (principal); I10 Essential (primary) hypertension; E78.5 Hyperlipidemia, unspecified
CPT/HCPCS: 60210; 36415; 80048; 80053; 85025; 86328; 88307; 88331; 93005; 96374; 96375; G0378; J2405

== ENCOUNTER → 2020-03-02 10:54 | Outpatient (CLI) | payer MEDICARE, SELFPAY ==
[2020-03-02 12:00] LABS: Free T4 (Free Thyroxine) 1.68 ng/dl (0.78-2.19)
[2020-03-02 12:07] LABS: Thyroid Stimulating Hormone < 0.02 uIU/mL (0.465-4.68)
[2020-03-03 20:14] LABS: Calcium, Ionized 5.3 mg/dL (4.5-5.6)
== END ==
PROVIDERS: Visit Provider Otolaryngology
DX: E04.9 Nontoxic goiter, unspecified (principal)
CPT/HCPCS: 36415; 82330; 84439; 84443

== ENCOUNTER → 2020-03-03 12:54 | Outpatient (CLI) | payer MEDICARE, SELFPAY ==
--- NOTE | 2020-03-03 12:54 | CA_ITS ---
APPROVED REPORT EXAM: Comprehensive 2D, Doppler, and color-flow Echocardiogram Podiatrist Orthopedic: Ioana Jimenez RVT Ht: 5 ft 2 in Wt: 154lbs BSA: 1.71 BP: 160/57 mmHg Indications: murmur,htn,hld,gerd,thyroid ca 2D Dimensions LVOT 1.31 cm (M/F) 1.5-2.5 M-Mode Dimensions RVDd 2.57 cm (0.9-2.6) LA Diam 3.68 cm (1.9-4.0) LVDd 3.79 cm (3.5-5.7) Ao Diam 2.68 cm (2.0-3.7) LVDs 2.38 cm (3.5-5.7) IVSd 1.53 cm (0.6-1.1) PWd 0.78 cm (0.6-1.1) EF (Teich) 68.00% FS 37.20% EDV (Teich) 61.60 mL ESV (Teich) 19.70 mL LV Diastology E Decel Time 257.00 (160-240 msec) E/A Ratio 0.6 MED E' 6.70 (< 7 cm/sec) E'/MED E' Ratio 10.43 (>14) LAT E' 9.80 (<10 cm/sec) E/LAT E' Ratio 7.13 (>14) Mitral Valve MV E Max Soren. 70.00 (40-130 cm/s) MV A Velocity 112.00 (40-130 cm/s) E/A Ratio 0.63 MV Decel. Time 257.00 (160-240 ms) MV PHT 75.00 ms Pulmonary Valve PV Peak Velocity 84.00 (50-150 cm/s) Tricuspid Valve TR P. Velocity 267.00 cm/s Left Ventricle Left atrium is moderately enlarged, left ventricle is normal size, mild concentric left ventricular hypertrophy, visually estimated ejection fraction 55% with no regional wall motion abnormality, grade 1 diastolic dysfunction seen without tissue Doppler evidence of raise left atrial pressure. Right Ventricle Right atrium and right ventricle are normal size and contractility. Aortic Valve Aortic valve is thickened and calcified leaflet chordae display good mobility, there is no aortic stenosis or aortic insufficiency. Mitral Valve Mitral valve has mitral calcification, leaflets are minimally thickened, there is no mitral stenosis, there is mild mitral regurgitation. Tricuspid Valve Tricuspid valve is grossly normal, there is mild tricuspid regurgitation, tricuspid regurgitation jet velocity is inadequate for calculation of the right ventricular systolic pressure. Pulmonic Valve Pulmonic valve is poorly visualized. Great Vessels Aortic root is normal size. Pericardium Trivial pericardial effusion noted. Conclusion 1. Moderately enlarged left atrium, normal left ventricular size, mild concentric left ventricular hypertrophy, visually estimated ejection fraction 55% with no regional wall motion abnormality, grade 1 diastolic dysfunction seen without tissue Doppler evidence of raise left atrial pressure. 2. Thickened and calcified aortic valve without Doppler evidence of aortic stenosis or aortic insufficiency. 3. Mild mitral and tricuspid regurgitation. 4. Trivial pericardial effusion noted. Electronically signed by : Rock Zimmerman, 03/05/2020 19:42:04
== END ==
PROVIDERS: PCP Emergency Medicine; Visit Provider Emergency Medicine
DX: R01.1 Cardiac murmur, unspecified (principal)
CPT/HCPCS: 93306

== ENCOUNTER → 2020-03-15 12:58 | Outpatient (CLI) | payer MEDICARE, SELFPAY | PROVIDERS: PCP Emergency Medicine; Visit Provider Internal Medicine Cardiovascular Disease | DX: G47.30 Sleep apnea, unspecified (principal); R06.00 Dyspnea, unspecified; R07.9 Chest pain, unspecified; R40.0 Somnolence; R06.83 Snoring | CPT/HCPCS: G0399 ==

== ENCOUNTER → 2020-03-28 07:26 | Outpatient (CLI) | payer MEDICARE, SELFPAY ==
--- NOTE | 2020-03-28 | CA_ITS ---
APPROVED REPORT Exam: Pharmacologic Technologist: Andreia Guzman Ht: 5 ft 2 in Wt: 154 lbs BSA: 1.71 m2 HR: 59 bpm BP: 173/72 mmHg Indications: Chest pain, Bilat Bruit Medical History Medications: Amlodipine,,,,, Levothyroxine,,,,, Furosemide (LASIX),,,,, Hydralazine,,,,, Gabapentin,,,,, Vitamin B12,,,,, Losartan,,,,, Atorvastatin,,,,, Nexium,,,,, Calcium,,,,, Baclofen,,,,, Fluoxetine,,,,, Stress Test Details Test: LEXISCAN HR Resting HR: 64 bpm Max Heart Rate (APMHR): 154 bpm Max HR Achieved: 90 bpm Target HR (85% APMHR): 130 bpm % of APMHR: 58 Recovery HR: 79 bpm BP Resting BP: 173.0/72.0 mmHg Max BP: 173.0/72.0 mmHg Recovery BP: 139.0/60.0 mmHg ECG Resting ECG: Normal sinus rhythm, NS ST abnormalities inferiorly. Clinical Exercise duration: 04:00 min Highest Stage Achieved: Stress ECG Conclusion Symptoms: Stomach discomfort, headache, mild chest tightness Arrhythmias/Ectopy: None ST-T Changes: Mild exaggeration of baseline ST abnormalities inferiorly. Conclusion: Non-diagnostic Lexiscan stress. Myoview images reported separately. Electronically signed by : Rock Zimmerman, 03/29/2020 06:05:42
--- NOTE | 2020-03-28 07:27 | NM_ITS ---
APPROVED REPORT Exam: Nuclear Stress Test Indication: Chest pain, SOB, HTN, High cholesterol, Former tobacco use, Family history Patient Location: Outpatient Stress Tech: Andreia Guzman NM Tech:Kia Durán, ARRT, RT (R)(N) Ht: 5 ft 2 in Wt: 150 lbs Bra Size: 36C HR: 59 bpm BP: 173/72 mmHg BSA: 1.69 m2 BMI: 27.4 History: Chest pain, SOB, HTN, High cholesterol, Former tobacco use, Family history Procedure: Patient received a 0.4 mg of intravenous Lexiscan, resting heart rate 59 bpm, resting blood pressure 173/72 mmHg, with Lexiscan maximum heart rate achived was 89 bpm which is Less than 85 % of the maximum predicted heart rate and blood pressure was 153/67 mmHg. Electrocardiogram Resting electrocardiogram showed sinus rhythm, with Lexiscan less than 1.[address] segment depression noted from the baseline EKG. The EKG portion of the Lexiscan Myoview is nondiagnostic. Cardiac Stress and Resting SPECT Images: Cardiac Stress and Resting SPECT images were obtained using technetium 99m Myoview 32.7 mCi stress and 10.88 mCi at rest. Gated SPECT for analysis of segmental wall motion and calculation of the ejection fraction also done. Cardiac stress and resting SPECT images show uniform myocardial activity without segmental perfusion abnormality, computer derived ejection fraction is over 65% with no regional wall motion abnormality, right ventricle is normal size and contractility. Conclusion: 1. The EKG portion of the Lexiscan Myoview is nondiagnostic. 2. No scintigraphic evidence of reversible ischemia seen, computer derived ejection fraction is over 65% with no regional wall motion abnormality, right ventricle is normal size and contractility. 3. Normal Lexiscan Myoview study. Electronically signed by : Rock Zimmerman, 03/29/2020 06:14:36
--- NOTE | 2020-03-28 08:37 | HMH.ITSHM ---
Current Home Medications as stated by this patient Dawna Thomas or insurance claims representative. []POTASSIUM MULTIVITAMIN LOSARTAN GABAPENTIN FUROSEMIDE FLUOXETINE ESOMEPRAZOLE VITAMIN B12 BIOTIN BACLOFEN ATORVASTATIN AMLODIPINE LEVOTHYROXINE CALCIUM
--- NOTE | 2020-03-28 08:53 | CA_ITS ---
APPROVED REPORT Quiller Runner: CT Laterality: Bilateral Indications: bilateral carotid bruits Risk Factors Hypertension: Hyperlipidemia Doppler Spectral Velocity Analysis ECA (R) 223.00/ cm/s ECA (L) 486.00/ cm/s dICA (R) 123.40/37.70 cm/s dICA (L) 81.10/20.50 cm/s Joel (R) 122.00/29.90 cm/s Joel (L) 131.90/37.70 cm/s pICA (R) 86.70/21.20 cm/s pICA (L) 132.40/38.20 cm/s dCCA (R) 65.50/18.60 cm/s dCCA (L) 70.00/25.00 cm/s pCCA (R) 83.10/22.30 cm/s pCCA (L) 56.50/16.70 cm/s Vert (R) 70.60/ cm/s Vert (L) 95.00/ cm/s ICA/CCA 1.90 ICA/CCA 1.90 Findings Duplex evaluation demonstrates stenosis of the right proximal internal carotid artery in the range of 20-49% with PSV <140 cm/sec, EDV <100 cm/sec, and IC/CC Ratio <4.0, upper end of scale. Duplex evaluation demonstrates stenosis of the left proximal internal carotid artery in the range of 20-49% with PSV <140 cm/sec, EDV <100 cm/sec, and IC/CC Ratio <4.0, upper end of scale. Duplex evaluation demonstrates antegrade flow of the bilateral Vertebral Arteries. Duplex evaluation demonstrates >60% stenosis of the External Carotid Arteries bilaterally. Conclusion Duplex evaluation demonstrates stenosis of the right proximal internal carotid artery in the range of 20-49% with PSV <140 cm/sec, EDV <100 cm/sec, and IC/CC Ratio <4.0, upper end of scale. Duplex evaluation demonstrates stenosis of the left proximal internal carotid artery in the range of 20-49% with PSV <140 cm/sec, EDV <100 cm/sec, and IC/CC Ratio <4.0, upper end of scale. Duplex evaluation demonstrates antegrade flow of the bilateral Vertebral Arteries. Duplex evaluation demonstrates >60% stenosis of the External Carotid Arteries bilaterally. Electronically signed by : Dontae Snider MD 03/28/2020 19:59:04
== END ==
PROVIDERS: PCP Emergency Medicine; Visit Provider Internal Medicine Cardiovascular Disease
DX: E78.5 Hyperlipidemia, unspecified (principal); I10 Essential (primary) hypertension; K21.9 Gastro-esophageal reflux disease without esophagitis; R06.00 Dyspnea, unspecified; R06.83 Snoring; R07.9 Chest pain, unspecified; R40.0 Somnolence; Z87.891 Personal history of nicotine dependence; R09.89 Other specified symptoms and signs involving the circulatory and respiratory systems
CPT/HCPCS: 78452; 93017; 93880; A9502; J2785

== ENCOUNTER → 2020-04-06 13:34 | Outpatient (CLI) | payer MEDICARE, SELFPAY ==
[2020-04-06 14:24] LABS: Chloride 102 mmol/L (98-107)
[2020-04-06 14:25] LABS: Sodium 140 mmol/L (136-145)
[2020-04-06 14:27] LABS: Blood Urea Nitrogen 12 mg/dl (7-17); Estimated Glomerular Filt Rate 84 ml/min (>60); GFR (African American) 101 ML/MIN (>60)
[2020-04-06 14:28] LABS: Calcium 9.5 mg/dl (8.4-10.2); Carbon Dioxide 30 mmol/L (22.0-30.0); Glucose 99 mg/dl (74-100)
[2020-04-06 14:36] LABS: NT Pro Brain Natriuretic Pep. 47.4 pg/mL (0-125)
== END ==
PROVIDERS: Visit Provider Internal Medicine Cardiovascular Disease
DX: E78.5 Hyperlipidemia, unspecified (principal); I10 Essential (primary) hypertension; K21.9 Gastro-esophageal reflux disease without esophagitis; R06.00 Dyspnea, unspecified; R06.83 Snoring; R07.9 Chest pain, unspecified; R40.0 Somnolence; Z87.891 Personal history of nicotine dependence
CPT/HCPCS: 36415; 80048; 83880

== ENCOUNTER → 2020-04-20 10:43 | Outpatient (CLI) | payer MEDICARE, SELFPAY ==
--- NOTE | 2020-04-20 10:47 | XR_ITS ---
PROCEDURE: XR CHEST 2V CLINICAL HISTORY: chest tightness COMPARISON: CR CXR CHEST(2 VIEWS-NOT PORTABLE) from 01/14/2014 CR CXR CHEST(2 VIEWS-NOT PORTABLE) from 06/28/2016 FINDINGS: The cardiomediastinal silhouette and pulmonary vascularity are within normal limits. The lungs are clear without infiltrates, suspicious nodules, or pleural effusions. Inter pedicular rods are present in the upper lumbar region. Carotid artery calcifications are present as well. IMPRESSION: No acute findings. Dictated by: Buzz Shin MD 04/20/2020 11:18 Buzz Shin MD in [place] 04/20/2020 11:18
== END ==
PROVIDERS: PCP Emergency Medicine; Visit Provider Nurse Practitioner Family
DX: R07.89 Other chest pain (principal)
CPT/HCPCS: 71046

== ENCOUNTER → 2020-06-07 12:19 | Outpatient (CLI) | payer MEDICARE, SELFPAY ==
--- NOTE | 2020-06-07 12:19 | US_ITS ---
PROCEDURE: US THYROID CLINICAL INDICATION: THYROID NEOPLASM MALIGNANT COMPARISON: US US THYROID from 04/28/2019 US US THYROID from 02/01/2020 FINDINGS: There has been a right thyroidectomy. There is a complex cystic lesion in the upper pole on the left at 6 x 4 mm not significantly changed. A solid 16 11 mm hyperechoic nodule is present unchanged. Additional 7 mm cystic lesion is present in the upper pole benign-appearing. Spongiform nodule in the lower pole at 7 mm unchanged. 4 mm cyst in the lower pole benign-appearing. IMPRESSION: Status post right thyroidectomy. No change multiple left-sided nodules Dictated by: Buzz Shin MD 06/07/2020 18:23 Buzz Shin MD in [place] 06/07/2020 18:23
== END ==
PROVIDERS: PCP Emergency Medicine; Visit Provider Otolaryngology
DX: C73 Malignant neoplasm of thyroid gland (principal); E03.9 Hypothyroidism, unspecified; Z90.09 Acquired absence of other part of head and neck
CPT/HCPCS: 76536

== ENCOUNTER → 2020-08-29 09:26 | Outpatient (CLI) | payer MEDICARE, SELFPAY ==
--- NOTE | 2020-08-29 09:26 | MM_ITS ---
PROCEDURE INFORMATION: Exam: MG Screening 3D Mammography Exam date and time: 08/29/2020 9:26 AM Age: 65 years old Clinical indication: Encounter for screening mammogram for malignant neoplasm of breast TECHNIQUE: Imaging protocol: Screening tomosynthesis and 2D mammography including computer-aided detection (CAD) when performed. COMPARISON: 1. MG MM DIG SCREENING MAMM BI W/CAD 05/21/2019 10:33 AM 2. MG SCBI MM Dig screening mamm BI w/CAD 12/15/2017 8:44 AM FINDINGS: MAMMOGRAPHY: Breast composition: The breast tissue is composed of scattered areas of fibroglandular density. Mass: None. Architectural distortion: None. Calcifications: No suspicious calcifications. Asymmetric density: None. Skin thickening: None. Axillary adenopathy: None. IMPRESSION: No mammographic evidence of malignancy. Annual screening is recommended unless otherwise clinically indicated. ASSESSMENT: BI-RADS Category 1: Negative
--- NOTE | 2020-08-29 09:26 | XR_ITS ---
PROCEDURE: XR DEXA AXIAL SKELETON CLINICAL HISTORY: screening Pt has rods in lumbar spine. Lt hip replacement. COMPARISON: CR BONE3 BONE DENSITOMETRY(HIP:LT SPINE from 12/11/2016 FINDINGS: The right hip BMD is 0.772 with a T-score of -0.7. The left forearm 33 percent BMD is 0.523 with a T-score of -2.8. Previously the lowest density within the forearm with a T-score -1.0 IMPRESSION: This patient is considered osteoporotic according to the World Health Organization criteria. Fracture risk is high. Treatment is advised. Based on these results a follow-up exam is recommended in 1 year. Dictated by: Buzz Shin MD 08/30/2020 05:35 Buzz Shin MD in [place] 08/30/2020 05:35
== END ==
PROVIDERS: PCP Emergency Medicine; Visit Provider Emergency Medicine
DX: M81.0 Age-related osteoporosis without current pathological fracture (principal); Z12.31 Encounter for screening mammogram for malignant neoplasm of breast
CPT/HCPCS: 77063; 77067; 77080

== ENCOUNTER 2020-09-18 09:53 | Emergency (ER) | payer MEDICARE, SELFPAY ==
[2020-09-18 10:00] VITALS: BP 149/75; PULSE 72; RESP 19; TEMP 36.6; O2SAT 96; BMI 27.6
--- NOTE | 2020-09-18 10:37 | XR_ITS ---
PROCEDURE: XR HAND LT MIN 3V CLINICAL INDICATION: PAIN AND SWELLING COMPARISON: No exams were available for comparison FINDINGS: No fracture or dislocation. No lytic or blastic change. There is normal mineralization. Mild generalized osteopenia. Osteoarthritic changes are present at the scapho trapezium joint and 1st metacarpal carpal junction as well as the capitate lunate junction. Osteosclerosis noted at the distal aspect of the scaphoid. There are osteoarthritic changes at the DIP joint of the 2nd and 3rd digit. Nonspecific lucencies are present at the distal aspect of the 1st metacarpal and could be due to the osteopenia or sub chondral cystic changes. Other findings:None. IMPRESSION: No acute finding. Osteoarthritic changes with generalized osteopenia Dictated by: Buzz Shin MD 09/18/2020 10:57 Buzz Shin MD in [place] 09/18/2020 10:57
--- NOTE | 2020-09-18 10:37 | HMH.EDUTC ---
[facility] [place] Clinical Impression: Cellulitis Qualifiers: Site of cellulitis: extremity Site of cellulitis of extremity: upper extremity Laterality: left Qualified Code(s): L03.114 - Cellulitis of left upper limb Disposition: Home, Self-Care Condition on Discharge: Good Instructions: DI for Cellulitis -- Adult, Cellulitis, Cephalexin Additional Instructions: *Start antibiotic(s) immediately and be sure to take as ordered for the FULL length of time although you may be feeling better or start to see improvement in the next 24-48 hours *Monitor closely. Outlined redness so that you can monitor easier. Follow up immediately for new or worsening symptoms including but not limited to redness, swelling, streaking from site fever or chills. *Warm compress 15 minutes 3-4 times day *Never squeeze or pop these on your own. Seek immediate medical attention next time this occurs *Monitor Temp. Tylenol every 4 hours as needed and ibuprofen every 6 hours as needed (as long as your primary care doctor has told you that it is ok to take both. For fever, aches, pain. ER if no less that 101 despite Tylenol and ibuprofen Follow up with your family doctor/primary care physician in the next 48-72 hours if no improvement Straight to ER if any life threatening symptoms Prescriptions: cephALEXin [cephALEXin 500mg capsule*] 500 mg PO Q6H 5 Days #20 cap Transmission Status: Received by [id number] Referrals: Deangelo Simpson MD [Primary Care Provider] - As needed Time of Disposition: 12:10 Medical Decision Making - Benjamin Inquiry Pt receiving controlled substance: No Benjamin was queried for this patient: No Vital Signs: 09/18/20 10:00 09/18/20 11:38 Temperature 97.8 F 97.8 F Temperature Source Oral Pulse Rate 72 Pulse Rate [Right Brachial] 72 Respiratory Rate 19 19 Blood Pressure 149/75 H Blood Pressure [Right Arm] 149/75 H Blood Pressure Mean [Right Arm] 99 Blood Pressure Source [Right Arm] Automatic Cuff Blood Pressure Position [Right Arm] Sitting 02 Sat by Pulse Oximetry 96 Oxygen Delivery Method Room Air - Lab Data Lab Results 09/18/20 10:45: Uric Acid 3.6 - Radiology Data #1 Image(s): Hand Image Reviewed: Yes I have reviewed radiologist's interpretation No acute finding. Osteoarthritic changes with generalized osteopenia Medical Decision Narrative: called lab to inquire on how much longer for Uric acid results, not completed advised about 5-10 more minutes Patient denies history of DVT + cap refill +radial pulse [facility] [place] - General Stated complaint: lt wrist pain/swelling Time Seen by Provider: 09/18/20 10:37 Mode of Arrival: Ambulatory Source of Information: Patient Limitations: No Limitations Description of Symptoms (Recalled from Triage Doc. by RN): PATIENT C/O SWELLING TO LEFT HAND X 4 DAYS. STATES THE SWELLING STARTED AFTER SHE STARTED TAKING A NEW ARTHRITIS MEDICATION HEENT Symptoms (Recalled from RN notes): No Resp Symptoms (Recalled from RN notes): No Skin Symptoms (Recalled from RN notes): No MS Symptoms (Recalled from RN notes): Yes Functional Status (Recalled from RN notes): WNL - History of Present Illness Provider Complaint: Patient states that she has been having pain, redness and swelling in her left wrist and hand since State that she has been taking Motrin and Tylenol, elevating it and putting ice on it and it has helped some States that today her hand was still swollen so she came in to get it checked Denies injury State that they did recently change her medication and not sure if that may have caused it - Related Data Home Medications Medication Instructions Recorded Confirmed biotin 1,000 mcg chewable tablet 1,000 mcg PO QDAY each 04/10/17 08/21/20 chlorpheniramine maleate 4 mg 4 mg PO Q6H 04/10/17 08/21/20 tablet cyanocobalamin (vitamin B-12) 100 100 mcg PO ONCE 04/10/17 08/21/20 mcg tablet esomeprazole magnesium 40 mg 40 mg PO QDAY cap
[2020-09-18 11:38] VITALS: BP 149/75; PULSE 72; RESP 19; TEMP 36.6; O2SAT 96
[2020-09-18 11:43] LABS: Uric Acid 3.6 mg/dl (2.5-6.2)
== END 2020-09-18 12:20 | disposition home or self-care (01) ==
PROVIDERS: Emergency Provider Nurse Practitioner; PCP Emergency Medicine
DX: L03.114 Cellulitis of left upper limb (principal); K21.9 Gastro-esophageal reflux disease without esophagitis; I10 Essential (primary) hypertension; E78.5 Hyperlipidemia, unspecified; Z79.899 Other long term (current) drug therapy
CPT/HCPCS: G0463; 73130; 84550; 99202

== ENCOUNTER → 2020-12-12 09:27 | Outpatient (CLI) | payer MEDICARE, SELFPAY ==
--- NOTE | 2020-12-12 09:33 | US_ITS ---
PROCEDURE: US THYROID CLINICAL INDICATION: hypothyroid Follow-up COMPARISON: US US THYROID from 06/07/2020 FINDINGS: Right lobe: Status post right thyroidectomy Left lobe: The left lobe measures 3.8 x 1.5 x 1.5 cm. There are multiple small cysts present. There is a solid appearing mid polar nodule at 1.5 cm not significantly changed slightly hyperechoic to overlying thyroid tissue benign-appearing. Small spongiform nodules present in the lower pole at 5 mm unchanged. Isthmus: Partially removed Additional findings: IMPRESSION: Status post right thyroidectomy. Stable appearing left thyroid gland with benign-appearing nodules Dictated by: Buzz Shin MD 12/12/2020 18:03 Buzz Shin MD in [place] 12/12/2020 18:03
[2020-12-12 12:37] LABS: Alanine Aminotransferase 13 U/L (12-78); Alkaline Phosphatase 76 U/L (38-126); Aspartate Amino Transferase 22 U/L (14-36); Bilirubin,Indirect 0.2 mg/dL (0.0-0.9); Bilirubin,Total 0.2 mg/dl (0.2-1.3); Bilirubin,Unconjugated 0.2 mg/dL (0.0-1.1); Chol/HDL Ratio 3.5 (1-3.5); Cholesterol 159 mg/dl (140-200); HDL Cholesterol 46 mg/dl (40-60); Total Protein,Serum 6.7 g/dl (6.3-8.2); Triglycerides 93 mg/dl (30-150); VLDL Cholesterol 19 mg/dL (0-40)
[2020-12-12 12:48] LABS: Direct LDL Cholesterol 88.41 mg/dL (100-129)
[2020-12-12 12:54] LABS: Free T4 (Free Thyroxine) 1.34 ng/dl (0.78-2.19)
[2020-12-12 13:04] LABS: Thyroid Stimulating Hormone < 0.02 uIU/mL (0.465-4.68)
== END ==
PROVIDERS: Physician Assistant; PCP Emergency Medicine; Visit Provider Otolaryngology
DX: E04.9 Nontoxic goiter, unspecified (principal); E78.5 Hyperlipidemia, unspecified; I10 Essential (primary) hypertension; R40.0 Somnolence
CPT/HCPCS: 36415; 76536; 80061; 80076; 84439; 84443

== ENCOUNTER → 2020-12-15 14:35 | Outpatient (CLI) | payer MEDICARE, SELFPAY | PROVIDERS: Visit Provider Nurse Practitioner Family | DX: N15.9 Renal tubulo-interstitial disease, unspecified (principal); B96.20 Unspecified Escherichia coli [E. coli] as the cause of diseases classified elsewhere | CPT/HCPCS: 87086; 87088; 87186 ==

== ENCOUNTER → 2021-01-09 12:10 | Outpatient (CLI) | payer MEDICARE, SELFPAY ==
--- NOTE | 2021-01-09 12:13 | XR_ITS ---
PROCEDURE: XR KNEE RT 4V CLINICAL INDICATION: right knee pain COMPARISON: CR XR KNEE RT 4V from 05/24/2019 FINDINGS: There are severe osteoarthritic changes of the patellofemoral joint. Mild osteoarthritis noted at the medial and lateral compartment. Well-circumscribed calcification noted along the superior lateral aspect of the patella and may be related to old fracture. There is a 3.5 by 1.8 cm irregular calcific density oval in shape along the superior aspect of the patella. This may be related to synovial osteo chondroma. This is slightly increased in size. Other soft tissue calcification is also consideration. Calcified mass is not excluded. MRI of the knee without and with contrast may provide further evaluation.. Other findings:None. IMPRESSION: Severe osteoarthritis of the right knee at the patellofemoral joint with possible old patellar fracture as well as an enlarging irregular calcific density in the suprapatellar region which could be related to a synovial osteo chondroma or partially calcified soft tissue mass such as neoplasm. Consider MRI without and with contrast for further evaluation Dictated by: Buzz Shin MD 01/09/2021 16:24 Buzz Shin MD in [place] 01/09/2021 16:24
--- NOTE | 2021-01-09 12:13 | XR_ITS ---
PROCEDURE: XR HIP RT 2-3V W/PELVIS CLINICAL INDICATION: right hip pain COMPARISON: CR,MG BONE BONE DENSITOMETRY(HIP:L.SPINE) from 06/22/2012 CR HIP2L HIP-2 VIEWS-LT from 06/11/2013 CR BONE3 BONE DENSITOMETRY(HIP:LT SPINE from 12/11/2016 FINDINGS: There are mild osteoarthritic changes of the right hip. No fracture or dislocation. No lytic or blastic change. There is some minimal calcification along the inferior aspect of the right greater tuberosity. There has been a total left hip prosthesis placement with an old left inferior pubic ramus fracture. Degenerative changes are present in the lower lumbar spine. IMPRESSION: Mild osteoarthritis right hip Dictated by: Buzz Shin MD 01/09/2021 16:14 Buzz Shin MD in [place] 01/09/2021 16:14
== END ==
PROVIDERS: PCP Emergency Medicine; Visit Provider Orthopaedic Surgery
DX: M25.561 Pain in right knee (principal); M25.551 Pain in right hip
CPT/HCPCS: 73502; 73564

== ENCOUNTER → 2021-02-16 13:35 | Outpatient (CLI) | payer MEDICARE, SELFPAY ==
[2021-02-16 22:35] LABS: Amphetamine/Metha Screen,Urine Negative ng/ml (<1000)
[2021-02-16 22:37] LABS: Barbiturates Screen,Urine Negative ng/ml (<200)
[2021-02-16 22:38] LABS: Benzodiazepines Screen,Urine Negative ng/ml (<200); Cannabinoid Screen,Urine Negative ng/ml (<50)
[2021-02-16 22:39] LABS: Cocaine Screen,Urine Negative ng/ml (<300)
[2021-02-16 22:40] LABS: Methadone Screen,Urine Negative ng/ml (<300); Opiate Screen,Urine Negative ng/ml (<300)
[2021-02-16 22:41] LABS: Phencyclidine Screen,Urine Negative ng/ml (<25)
== END ==
PROVIDERS: Visit Provider Emergency Medicine
DX: R40.0 Somnolence (principal)
CPT/HCPCS: 80305

== ENCOUNTER → 2021-02-27 11:12 | Outpatient (CLI) | payer MEDICARE, SELFPAY ==
[2021-02-27 11:46] LABS: Basophils % 0.4 % (0.1-2.0); Eosinophils # 0.1 K/mm3 (0.0-0.4); Eosinophils % 1.7 % (0.1-12.0); Lymphocytes # 1.9 K/mm3 (0.7-4.5); Lymphocytes % 23.7 % (10-50); Mean Corpuscular HGB Conc 33.3 g/dL (31.8-35.4); Mean Corpuscular Hemoglobin 31.6 pg (27.0-31.2); Mean Platelet Volume 8.8 fl (7.4-10.4); Monocytes # 0.5 K/mm3 (0.1-1.0); Monocytes % 6.2 % (1.7-9.3); Neutrophils # 5.6 K/mm3 (1.8-7.8); Neutrophils % 67.9 % (37.0-80.0); Platelet Count 414 K/mm3 (142-424); Red Blood Count 4.11 M/mm3 (4.20-5.40); Red Cell Distribution Width 14.3 % (11.5-17.5); White Blood Count 8.2 K/mm3 (4.8-10.8)
[2021-02-27 13:11] LABS: Chloride 103 mmol/L (98-107); Potassium 4.5 mmoL/L (3.5-5.1); Sodium 141 mmol/L (136-145)
[2021-02-27 13:13] LABS: Alanine Aminotransferase 11 U/L (12-78); Aspartate Amino Transferase 26 U/L (14-36); Blood Urea Nitrogen 13 mg/dl (7-17); Estimated Glomerular Filt Rate 100 ml/min (>60); GFR (African American) 121 ML/MIN (>60)
[2021-02-27 13:14] LABS: Albumin Level 4.4 g/dl (3.5-5.0); Albumin/Globulin Ratio 1.8 (1.1-1.8); Alkaline Phosphatase 67 U/L (38-126); Anion Gap 11.5 mEq/L (5-15); Bilirubin,Total 0.2 mg/dl (0.2-1.3); Calcium 9.7 mg/dl (8.4-10.2); Carbon Dioxide 31 mmol/L (22.0-30.0); Globulin 2.5 g/dL (1.3-3.2); Glucose 89 mg/dl (74-100); Total Protein,Serum 6.9 g/dl (6.3-8.2)
[2021-02-27 13:41] LABS: Thyroid Stimulating Hormone < 0.02 uIU/mL (0.465-4.68)
--- NOTE | 2021-02-27 15:14 | XR_ITS ---
PROCEDURE: XR CHEST 2V CLINICAL HISTORY: Pre-op/HX HIGH BLOOD PRESSURE COMPARISON: CR XR CHEST 2V from 04/20/2020 FINDINGS: The cardiomediastinal silhouette and pulmonary vascularity are within normal limits. The lungs are clear without infiltrates, suspicious nodules, or pleural effusions. Calcified granulomas present in the lobe. Postsurgical changes are present with inter pedicular screws in the lumbar spine at L2-L3. Lumbar curvature convex left. IMPRESSION: No change with no acute finding Dictated by: Buzz Shin MD 02/27/2021 18:55 Buzz Shin MD in [place] 02/27/2021 18:55
== END ==
PROVIDERS: Visit Provider Nurse Practitioner Family
DX: Z01.818 Encounter for other preprocedural examination (principal); G89.29 Other chronic pain; M25.561 Pain in right knee; R40.0 Somnolence
CPT/HCPCS: 36415; 71046; 80053; 84443; 85025

== ENCOUNTER 2021-03-08 18:22 | Emergency (ER) | payer MEDICARE, SELFPAY ==
[2021-03-08 18:23] VITALS: BP 183/74; PULSE 93; RESP 18; TEMP 36.9; O2SAT 97; BMI 45.7
--- NOTE | 2021-03-08 20:37 | HMH.EDGENADL ---
ED Disposition Clinical Impression: Arthritis Disposition: Home, Self-Care Condition on Discharge: Good Instructions: DI for Joint Pain Additional Instructions: see pcp on friday and use meds as directed Prescriptions: predniSONE [Prednisone 20mg Tab] 20 mg PO BID #10 tab Transmission Status: Pending to [id number] Referrals: Deangelo Simpson MD [Primary Care Provider] - - Critical Care Critical Care Time: No Attestation: On 03/08/21, the high probability of a clinically significant, sudden or life threatening deterioration of the following system(s) required my full and direct attention, intervention and personal management. The time I documented below is in addition to time spent performing reported procedures but includes the following listed in this critical care notation. Medical Decision Making - Medical Records Medical records reviewed: Yes: I reviewed the patient's medical records. - Benjamin Inquiry Pt receiving controlled substance: No Vital Signs: 03/08/21 18:23 Temperature 98.5 F Temperature Source Oral Pulse Rate [Apical] 93 H Respiratory Rate 18 Blood Pressure [Right Arm] 183/74 H Blood Pressure Mean [Right Arm] 110 Blood Pressure Source [Right Arm] Automatic Cuff Blood Pressure Position [Right Arm] Sitting 02 Sat by Pulse Oximetry 97 Oxygen Delivery Method Room Air - Lab Data Lab results reviewed: Yes: I reviewed the patient's lab results. Lab Results 03/08/21 20:35: WBC 13.7 H, RBC 4.22, Hgb 13.3, Hct 38.9, MCV 92.1, MCH 31.4 H, MCHC 34.1, RDW 14.3, Plt Count 406, MPV 8.3, Neut % (Auto) 84.3 H, Lymph % (Auto) 9.8 L, Curry % (Auto) 5.2, Eos % (Auto) 0.2, Baso % (Auto) 0.4, Neut # (Auto) 11.6 H, Lymph # (Auto) 1.4, Curry # (Auto) 0.7, Eos # (Auto) 0.0, Baso # (Auto) 0.1 03/08/21 20:35: Sodium 135 L, Potassium 3.7, Chloride 101, Carbon Dioxide 28, Anion Gap 9.7, BUN 12, Creatinine 0.70, Estimated Creat Clear 43, Estimated GFR 83, Est GFR ( Amer) 101, Glucose 136 H, Calcium 9.3, Total Bilirubin 0.4, AST 34, ALT 20, Alkaline Phosphatase 80, C-Reactive Protein 19.2 H, Total Protein 7.5, Albumin 4.6, Globulin 2.9, Albumin/Globulin Ratio 1.6 03/08/21 20:35: Uric Acid 4.1 Result diagrams: 03/08/21 20:35 03/08/21 20:35 Orders (Tests/Meds): ED MEDICATIONS Discontinued Medications Generic Name Dose Route Start Last Admin Trade Name Garret PRN Reason Stop Dose Admin Ketorolac Tromethamine 30 mg 03/08/21 20:41 03/08/21 20:45 Ketorolac 30mg/Ml Vial IV 03/08/21 20:42 30 mg ONCE ONE Administration Methylprednisolone Sodium Succinate 125 mg 03/08/21 20:41 03/08/21 20:45 Methylprednisolone Sod Succ 125mg Vial IV 03/08/21 20:42 125 mg ONCE ONE Administration Ondansetron HCl 4 mg 03/08/21 21:13 Ondansetron 4mg/2ml Vial IV 03/08/21 21:14 ONCE ONE ORDERS Category Date Time Status XR wrist LT min 3V Stat Exams 03/08/21 20:38 Taken Antinuclear Antibodies (RAY) Stat Lab 03/08/21 20:53 Received C-Reactive Protein Stat Lab 03/08/21 20:35 Results Complete Blood Count Auto Diff Stat Lab 03/08/21 20:35 Results Comprehensive Metabolic Panel Stat Lab 03/08/21 20:35 Results Erythrocyte Sedimentation Rate Stat Lab 03/08/21 20:35 Results Procalcitonin Stat Lab 03/08/21 20:35 Results RA Latex Turbid. Stat Lab 03/08/21 20:53 Received - Radiology Data #1 Image(s): Wrist Image Reviewed: Yes I reviewed the patient's radiology image Preliminary Findings: Abnormal Medical Decision Narrative: has acute arthritis lt wrist - labs pending for follow up General Adult HPI - General Chief complaint: PAIN Stated complaint: left wrist swollen with knot,pain Time Seen by Provider: 03/08/21 20:37 Mode of Arrival: Ambulatory Source of Information: Patient, Medical Record Limitations: No Limitations Description of Symptoms (Recalled from ER Triage Doc. by RN): Patient states that two days ago she began having pain and swelling
--- NOTE | 2021-03-08 20:38 | XR_ITS ---
PROCEDURE INFORMATION: Exam: XR Left Wrist Exam date and time: 03/08/2021 8:38 PM Age: 65 years old Clinical indication: Prior surgery; Surgery date: 6+ months; Surgery type: Left wrist pain x2 days, nki. HX carpal tunnel SX 2 years ago; Additional info: Injury TECHNIQUE: Imaging protocol: XR Left wrist. Views: 3 or more views. COMPARISON: UEAJW/OLT MRI-UP EXT ANY JNT W/O-LT 03/07/2017 2:42 PM FINDINGS: Bones/joints: Degenerative changes involving the 1st and 2nd carpal metacarpal joint. Degenerative changes involving the distal articulation of the scaphoid with sclerotic changes noted. No acute fracture or dislocation. Soft tissues: Normal. IMPRESSION: No acute findings.
[2021-03-08 20:58] LABS: Basophils # 0.1 K/mm3 (0-0.2); Basophils % 0.4 % (0.1-2.0); Eosinophils % 0.2 % (0.1-12.0); Hematocrit 38.9 % (37.0-47.0); Hemoglobin 13.3 g/dL (12.2-16.2); Lymphocytes # 1.4 K/mm3 (0.7-4.5); Lymphocytes % 9.8 % (10-50); Mean Corpuscular HGB Conc 34.1 g/dL (31.8-35.4); Mean Corpuscular Hemoglobin 31.4 pg (27.0-31.2); Mean Corpuscular Volume 92.1 fl (81-99); Mean Platelet Volume 8.3 fl (7.4-10.4); Monocytes # 0.7 K/mm3 (0.1-1.0); Monocytes % 5.2 % (1.7-9.3); Neutrophils # 11.6 K/mm3 (1.8-7.8); Neutrophils % 84.3 % (37.0-80.0); Platelet Count 406 K/mm3 (142-424); Red Blood Count 4.22 M/mm3 (4.20-5.40); Red Cell Distribution Width 14.3 % (11.5-17.5); White Blood Count 13.7 K/mm3 (4.8-10.8)
[2021-03-08 21:01] LABS: Alanine Aminotransferase 20 U/L (12-78); Albumin Level 4.6 g/dl (3.5-5.0); Albumin/Globulin Ratio 1.6 (1.1-1.8); Alkaline Phosphatase 80 U/L (38-126); Anion Gap 9.7 mEq/L (5-15); Aspartate Amino Transferase 34 U/L (14-36); Bilirubin,Total 0.4 mg/dl (0.2-1.3); Blood Urea Nitrogen 12 mg/dl (7-17); Calcium 9.3 mg/dl (8.4-10.2); Carbon Dioxide 28 mmol/L (22.0-30.0); Chloride 101 mmol/L (98-107); Creatinine Clearance Estimated 43 mL/min (50-200); Estimated Glomerular Filt Rate 83 ml/min (>60); GFR (African American) 101 ML/MIN (>60); Globulin 2.9 g/dL (1.3-3.2); Glucose 136 mg/dl (74-100); Potassium 3.7 mmoL/L (3.5-5.1); Sodium 135 mmol/L (136-145); Total Protein,Serum 7.5 g/dl (6.3-8.2); Uric Acid 4.1 mg/dl (2.5-6.2)
[2021-03-08 21:06] LABS: C-Reactive Protein 19.2 mg/L (0-4)
[2021-03-08 21:17] VITALS: BP 187/99; PULSE 79; RESP 18; TEMP 36.7; O2SAT 98
[2021-03-08 21:21] LABS: Erythrocyte Sedimentation Rate 36 mm/hr (0-30)
[2021-03-08 21:22] LABS: Procalcitonin < 0.030 ng/mL (0.0-2.0)
[2021-03-08 21:33] VITALS: BP 132/73; PULSE 83; RESP 16; TEMP 36.8; O2SAT 99
[2021-03-10 09:13] LABS: RA Latex Turbid. <10.0 IU/mL (<14.0)
[2021-05-17 12:56] LABS: Antinuclear Antibodies (ANA) NEGATIVE
== END 2021-03-08 21:35 | disposition home or self-care (01) ==
PROVIDERS: Emergency Provider Emergency Medicine; PCP Emergency Medicine
DX: M19.032 Primary osteoarthritis, left wrist (principal); K21.9 Gastro-esophageal reflux disease without esophagitis; I10 Essential (primary) hypertension; E78.5 Hyperlipidemia, unspecified; Z79.899 Other long term (current) drug therapy
CPT/HCPCS: 73110; 80053; 84145; 84550; 85025; 85651; 86038; 86140; 86431; 96374; 99283; J2405

== ENCOUNTER → 2021-04-25 13:22 | Outpatient (CLI) | payer MEDICARE, SELFPAY | PROVIDERS: PCP Emergency Medicine; Visit Provider Nurse Practitioner | DX: Z11.52 Encounter for screening for COVID-19 (principal) | CPT/HCPCS: C9803; U0003; U0005 ==

== ENCOUNTER → 2021-04-25 18:06 | Outpatient (CLI) | payer MEDICARE, SELFPAY ==
[2021-04-25 18:49] LABS: Uric Acid 3.7 mg/dl (2.5-6.2)
== END ==
PROVIDERS: Visit Provider Nurse Practitioner Family
DX: L08.9 Local infection of the skin and subcutaneous tissue, unspecified (principal); Z01.812 Encounter for preprocedural laboratory examination; Z11.52 Encounter for screening for COVID-19
CPT/HCPCS: 84550; C9803; U0003; U0005

== ENCOUNTER → 2021-04-30 15:35 | Outpatient (CLI) | payer MEDICARE, SELFPAY ==
--- NOTE | 2021-04-30 15:39 | XR_ITS ---
FINAL REPORT CLINICAL HISTORY: foot pain FINDINGS: RIGHT FOOT 3 views of the right foot were obtained. There is no acute fracture or dislocation. Visualized joint spaces are normally aligned. There is a small plantar calcaneal spur. Soft tissues are unremarkable. IMPRESSION: No acute bony abnormality. Reviewed, Interpreted and Dictated by David Sneed III, MD Transcribed by Sondra Huddleston Authenticated by David Sneed III, MD on 04/30/2021 04:53:03 PM [facility]
== END ==
PROVIDERS: PCP Emergency Medicine; Visit Provider Nurse Practitioner Family
DX: L08.9 Local infection of the skin and subcutaneous tissue, unspecified (principal); M79.671 Pain in right foot
CPT/HCPCS: 73630

== ENCOUNTER → 2021-05-01 19:58 | Outpatient (CLI) | payer MEDICARE, SELFPAY | PROVIDERS: PCP Emergency Medicine; Visit Provider Emergency Medicine | DX: G47.30 Sleep apnea, unspecified (principal); I10 Essential (primary) hypertension; G47.19 Other hypersomnia; R06.83 Snoring | CPT/HCPCS: 95810 ==

== ENCOUNTER → 2021-05-15 15:37 | Outpatient (CLI) | payer MEDICARE, SELFPAY ==
--- NOTE | 2021-05-15 15:42 | XR_ITS ---
FINAL REPORT CLINICAL HISTORY: wrist pain, no known injury, swelling and pain wrist into hand COMPARISON: March 08, 2021 FINDINGS: LEFT WRIST Three views demonstrate no acute fracture or dislocation. There is osteopenia. There is widening of the scapholunate interval. Scapholunate ligament injury cannot be excluded. There are moderate degenerative changes of the radial aspect of the wrist. There are moderate to severe degenerative changes of the 1st CMC joint. There is a 5 mm loose body at the 1st CMC joint. IMPRESSION: Widening of the scapholunate interval, scapholunate ligament injury not excluded. If indicated MRI could further evaluate. Degenerative changes described. Reviewed, Interpreted and Dictated by David Sneed III, MD Transcribed by Alma Rosa Rubio Authenticated by David Sneed III, MD on 05/15/2021 04:34:37 PM [facility]
== END ==
PROVIDERS: PCP Emergency Medicine; Visit Provider Orthopaedic Surgery
DX: M25.532 Pain in left wrist (principal)
CPT/HCPCS: 73110

== ENCOUNTER 2021-05-24 12:18 | Outpatient (RCR) | payer MEDICARE, SELFPAY | END 2021-05-24 13:10 | disposition home or self-care (01) | LOC: OT 12:18 | PROVIDERS: Visit Provider Orthopaedic Surgery | DX: M25.532 Pain in left wrist (principal) | CPT/HCPCS: 97763 ==

== ENCOUNTER → 2021-08-23 15:18 | Outpatient (CLI) | payer MEDICARE, SELFPAY ==
--- NOTE | 2021-08-23 15:19 | MM_ITS ---
PROCEDURE INFORMATION: Exam: MG Bilateral Screening 3D Mammography Exam date and time: 08/23/2021 3:30 PM Age: 66 years old Clinical indication: Screening examination TECHNIQUE: Imaging protocol: Bilateral Screening tomosynthesis and 2D mammography including computer-aided detection (CAD) when performed. COMPARISON: 1. MG MM DIG SCREENING MAMM BI W/CAD 08/29/2020 9:33 AM 2. MG MM DIG SCREENING MAMM BI W/CAD 05/21/2019 10:33 AM FINDINGS: MAMMOGRAPHY: Breast composition: There are scattered areas of fibroglandular density. Mass: None. Architectural distortion: None. Calcifications: No suspicious calcifications. Asymmetric density: None. Skin thickening: None. Axillary adenopathy: None. IMPRESSION: No mammographic evidence of malignancy. Annual screening is recommended unless otherwise clinically indicated. ASSESSMENT: BI-RADS Category 1: Negative
== END ==
PROVIDERS: PCP Emergency Medicine; Visit Provider Emergency Medicine
DX: Z12.31 Encounter for screening mammogram for malignant neoplasm of breast (principal)
CPT/HCPCS: 77063; 77067

== ENCOUNTER → 2021-09-26 09:00 | Outpatient (CLI) | payer MEDICARE, SELFPAY ==
--- NOTE | 2021-09-26 09:00 | XR_ITS ---
FINAL REPORT TECHNIQUE: Bone densitometry calculations of the lumbar spine and left hip were obtained. CLINICAL HISTORY: . OSTEOPENIA COMPARISON: 08/29/2020 FINDINGS: Using 1/3 radius, the bone mineral density of the radius is 0.510 g/cm2, was 0.523 corresponding to T-score of -3.1, was -2.8. Using the right hip, the bone mineral density of the femoral neck is 0.815 g/cm2, was 0.772 corresponding to a T-score of -0.3, was -0.7. NOTE: T-score: Standard deviation compared with peak bone mass of young adult mean. *Following the recommendations of the International Society of Bone Densitometry, classification of hip BMD is based on the lower of two T-scores; total hip or femoral neck. IMPRESSION: Osteoporosis: Lowest T-score is at or below -2.5. This patient's T-score meets the World Health Organization criteria for osteoporosis. FRAX was not reported because patient has osteoporosis. Reviewed, Interpreted and Dictated by David Sneed III, MD Transcribed by Chandrika Culver Authenticated and [facility]
== END ==
PROVIDERS: PCP Emergency Medicine; Visit Provider Emergency Medicine
DX: M81.0 Age-related osteoporosis without current pathological fracture (principal)
CPT/HCPCS: 77080

== ENCOUNTER 2021-10-19 10:31 | Emergency (ER) | payer MEDICARE, SELFPAY ==
[2021-10-19 10:32] VITALS: BP 137/84; PULSE 77; RESP 18; TEMP 36.6; O2SAT 97; BMI 27.8
[2021-10-19 10:48] VITALS: BP 137/84; PULSE 77; RESP 18; TEMP 36.6; O2SAT 97
--- NOTE | 2021-10-19 10:48 | HMH.EDUTC ---
[facility] [place] Clinical Impression: Eye problem Disposition: Home, Self-Care Condition on Discharge: Good Instructions: DI for Eye Pain Additional Instructions: Make sure to go to the [facility] as instructed in the [facility] today at 2pm for further evaluation and treatment Further instructions from the Eye Doctor Return if needed Straight to ER if any life threatening symptoms Referrals: Deangelo Simpson MD [Primary Care Provider] - As needed [facility] ([facility]) [Other] - 10/19/21 2:00 pm Time of Disposition: 10:51 Medical Decision Making - Benjamin Inquiry Pt receiving controlled substance: No Benjamin was queried for this patient: No Vital Signs: 10/19/21 10:32 10/19/21 10:48 Temperature 97.9 F 97.9 F Temperature Source Oral Pulse Rate 77 Pulse Rate [Left Radial] 77 Respiratory Rate 18 18 Blood Pressure 137/84 Blood Pressure [Right Arm] 137/84 Blood Pressure Mean [Right Arm] 101 Blood Pressure Source [Right Arm] Automatic Cuff Blood Pressure Position [Right Arm] Sitting 02 Sat by Pulse Oximetry 97 Oxygen Delivery Method Room Air Room Air - Physician Consults Physician Consulted: [facility] Time: 10:53 Reason -: Opthalmology Eval/Care Comment/Response: Spoke with Staff at the [facility] and informed them of patient complaint They advsied that they could see her today at 2pm for more extensive examination of her eye and patient agreed [facility] [place] - General Stated complaint: spot in lt eye Time Seen by Provider: 10/19/21 10:49 Mode of Arrival: Ambulatory Source of Information: Patient Limitations: No Limitations Description of Symptoms (Recalled from Triage Doc. by RN): c/o left eye irritation since friday after getting poly dent solution in her eye while she was cleaning her teeth HEENT Symptoms (Recalled from RN notes): Yes Resp Symptoms (Recalled from RN notes): No Skin Symptoms (Recalled from RN notes): No MS Symptoms (Recalled from RN notes): No Functional Status (Recalled from RN notes): na - History of Present Illness Provider Complaint: Patient states that on Friday she was cleaning her dentures when Polident solution splashed up into her left eye States that she rinsed it out well but feels like there is a black spot in her eye that moves with her eye so today she came in to get it checked - Related Data Home Medications Medication Instructions Recorded Confirmed biotin 1,000 mcg chewable tablet 1,000 mcg PO QDAY each 04/10/17 09/25/21 cyanocobalamin (vitamin B-12) 100 100 mcg PO ONCE 04/10/17 09/25/21 mcg tablet multivitamin,uz-dynz-ltrupuvf 1 tab PO QDAY 04/10/17 09/25/21 esomeprazole magnesium 40 mg 20 mg PO QDAY cap 04/06/21 09/25/21 capsule,delayed release ciclopirox 8 % topical solution ml TOPICAL 07/18/21 09/25/21 Previous Rx's Medication Instructions Recorded Calcium Carbonate/Vitamin D3 500 mg PO BID #28 tab 02/11/20 [Oscal +D 500mg Tab] aspirin 81 mg chewable tablet 81 mg PO DAILY #30 tab 04/07/20 levothyroxine 125 mcg tablet 125 mcg PO DAILY #90 tab 12/25/20 amlodipine 5 mg tablet 5 mg PO QHS #90 tab 05/14/21 losartan 100 mg tablet See Rx Instructions .ROUTE 05/31/21 .COMPLEX #90 tab fluoxetine 20 mg capsule See Rx Instructions .ROUTE 08/01/21 .COMPLEX #90 cap atorvastatin 40 mg tablet 40 mg PO QDAY #90 tab 08/03/21 baclofen 20 mg tablet See Rx Instructions .ROUTE 08/03/21 .COMPLEX #270 tab furosemide 20 mg tablet See Rx Instructions .ROUTE 08/29/21 .COMPLEX #180 tab alendronate 70 mg tablet 70 mg PO WEEKLY #5 tab 09/04/21 gabapentin 600 mg tablet 600 mg PO TID #90 tab 09/14/21 nitrofurantoin 100 mg PO Q12H 10 Days #20 cap 09/25/21 monohydrate/macrocrystals 100 mg capsule allopurinol 300 mg tablet 300 mg PO DAILY #90 tab 10/02/21 potassium chloride 10 mEq See Rx Instructions .ROUTE 10/02/21 capsule,extended release .COMPLEX #90 cap Allergies Allergy/AdvReac Type Se
== END 2021-10-19 10:58 | disposition home or self-care (01) ==
PROVIDERS: Emergency Provider Nurse Practitioner; PCP Emergency Medicine
DX: T15.82XA Foreign body in other and multiple parts of external eye, left eye, initial encounter (principal); R07.9 Chest pain, unspecified; I10 Essential (primary) hypertension; K21.9 Gastro-esophageal reflux disease without esophagitis; E78.5 Hyperlipidemia, unspecified; E89.0 Postprocedural hypothyroidism; M81.0 Age-related osteoporosis without current pathological fracture; M19.90 Unspecified osteoarthritis, unspecified site; Z79.52 Long term (current) use of systemic steroids; Z79.82 Long term (current) use of aspirin; Z79.899 Other long term (current) drug therapy; Z88.8 Allergy status to other drugs, medicaments and biological substances; Z87.891 Personal history of nicotine dependence; Z82.49 Family history of ischemic heart disease and other diseases of the circulatory system; Z80.9 Family history of malignant neoplasm, unspecified; Z83.3 Family history of diabetes mellitus
CPT/HCPCS: 99212; G0463

== ENCOUNTER 2021-10-21 09:22 | Emergency (ER) | payer MEDICARE, SELFPAY ==
[2021-10-21 09:25] VITALS: BP 169/74; PULSE 98; RESP 18; TEMP 36.7; O2SAT 98; BMI 27.4
--- NOTE | 2021-10-21 09:30 | XR_ITS ---
PROCEDURE INFORMATION: Exam: XR Right Wrist Exam date and time: 10/21/2021 9:50 AM Age: 66 years old Clinical indication: Injury or trauma; Fall; Blunt trauma (contusions or hematomas); Wrist; Right; Additional info: Pain-right wrist pain slid down trying to get shoes on and landed on arm. TECHNIQUE: Imaging protocol: Radiologic exam of the Right wrist. Views: 3 or more views. COMPARISON: No relevant prior studies available. FINDINGS: Bones/joints: Stigmata of remote trauma with absence of multiple carpal bones. No acute bony injury in the visualized right wrist. Degenerative change. Soft tissues: No radiopaque foreign body. IMPRESSION: Stigmata of remote trauma with absence of multiple carpal bones.
--- NOTE | 2021-10-21 09:30 | XR_ITS ---
PROCEDURE INFORMATION: Exam: XR Right Forearm Exam date and time: 10/21/2021 9:50 AM Age: 66 years old Clinical indication: Injury or trauma; Fall; Blunt trauma (contusions or hematomas); Arm, lower; Right; Additional info: Pain-right wrist pain slid down trying to get shoes on and landed on arm. TECHNIQUE: Imaging protocol: Radiologic exam of the Right forearm. Views: 2 views. COMPARISON: No relevant prior studies available. FINDINGS: Bones/joints: No acute bony injury or malalignment in the visualized right forearm. Soft tissues: No radiopaque soft tissue foreign body. IMPRESSION: No acute bony injury or malalignment in the visualized right forearm.
--- NOTE | 2021-10-21 09:30 | XR_ITS ---
PROCEDURE INFORMATION: Exam: XR Right Hand Exam date and time: 10/21/2021 9:50 AM Age: 66 years old Clinical indication: Pain; Hand; Right; Additional info: Pain-right wrist pain slid down trying to get shoes on and landed on arm. TECHNIQUE: Imaging protocol: Radiologic exam of the Right hand. Views: 3 or more views. COMPARISON: No relevant prior studies available. FINDINGS: Bones/joints: 2 mm ovoid radiolucency in the proximal aspect of the 1st distal phalanx. Polyarticular degenerative change. No gross evidence for acute bony injury in the visualized right hand. Stigmata of remote trauma involving the carpus. Soft tissues: No radiopaque soft tissue foreign body. IMPRESSION: No gross evidence for acute bony injury in the visualized right hand.
--- NOTE | 2021-10-21 09:49 | HMH.EDUTC ---
[facility] [place] Disposition Clinical Impression: Wrist pain Qualifiers: Laterality: right Qualified Code(s): M25.531 - Pain in right wrist Disposition: Home, Self-Care Condition on Discharge: Good Instructions: How To Perform RICE (Rest, Ice, Compress, Elevate), DI for Wrist Sprain, Wrist Sprain Additional Instructions: *RICE, Rest the extremity, Ice 15-20 minutes 3-4 times daily, Compress- wear the elbert wrap as discussed as much as possible to help reduce swelling and pain, Elevate the extremity when at rest *Velcro wrist splint is for support and help control swelling, use it except in the shower. Be sure that is not to tight but not to loose either *Elevate when resting *Ibuprofen 600-800mg every 6-8 hours as needed for pain an inflammation if your Doctor has said that you can take it. If need something more can take Tylenol in between doses of Ibuprofen to help Immediately follow up with your family doctor for new or worsening of symptoms, or no noticeable improvement over the next 3-5 days Referrals: Deangelo Simpson MD [Primary Care Provider] - As needed Time of Disposition: 10:39 Medical Decision Making - Benjamin Inquiry Pt receiving controlled substance: No Benjamin was queried for this patient: No Vital Signs: 10/21/21 09:25 10/21/21 10:29 Temperature 98.0 F 98.0 F Temperature Source Oral Pulse Rate 98 H Pulse Rate [Left Brachial] 98 H Respiratory Rate 18 18 Blood Pressure 169/74 H Blood Pressure [Left Arm] 169/74 H Blood Pressure Mean [Left Arm] 105 Blood Pressure Source [Left Arm] Automatic Cuff Blood Pressure Position [Left Arm] Sitting 02 Sat by Pulse Oximetry 98 Oxygen Delivery Method Room Air - Lab Data Lab Results 10/21/21 10:10: Uric Acid 1.8 L Orders (Tests/Meds): ED MEDICATIONS Discontinued Medications Generic Name Dose Route Start Last Admin Trade Name Freq PRN Reason Stop Dose Admin Ketorolac Tromethamine 30 mg 10/21/21 10:23 10/21/21 10:25 Ketorolac 30mg/Ml Vial IM 10/21/21 10:24 30 mg ONCE ONE Administration Ondansetron HCl 4 mg 10/21/21 10:11 10/21/21 10:28 Ondansetron 4mg Odt SL 10/21/21 10:12 4 mg ONCE ONE Administration - Radiology Data #1 Image(s): Wrist Image Reviewed: Yes I have reviewed radiologist's interpretation IMPRESSION: Stigmata of remote trauma with absence of multiple carpal bones. #2 Image(s): Forearm Image Reviewed: Yes I have reviewed radiologist's interpretation IMPRESSION: No acute bony injury or malalignment in the visualized right forearm. #3 Image(s): Hand Image Reviewed: Yes I have reviewed radiologist's interpretation IMPRESSION: No gross evidence for acute bony injury in the visualized right hand. Medical Decision Narrative: Patient states that she has taken zofran in the past without complications or reactions [facility] [place] HPI - General Stated complaint: wrist pain Time Seen by Provider: 10/21/21 09:49 Mode of Arrival: Ambulatory Source of Information: Patient Limitations: No Limitations Description of Symptoms (Recalled from Triage Doc. by RN): PATIENT STATES SHE WAS PUTTING SHOES UNDER THE BED AND SLIPPED AND FELL ON HER RIGHT ARM A FEW DAYS AGO. C/O PAIN TO RIGHT HAND, WRIST, AND FOREARM. HEENT Symptoms (Recalled from RN notes): No Resp Symptoms (Recalled from RN notes): No Skin Symptoms (Recalled from RN notes): No MS Symptoms (Recalled from RN notes): Yes Functional Status (Recalled from RN notes): WNL - History of Present Illness Provider Complaint: Patient states that she was putting shoes under the bed and she slipped and fell on her her right arm States that she has been having pain in her right forearma and wrist ever since States that she is not sure if it is from the fall or she has a history of gout and it feels like that too - Related Data Home Medications Medication Instructions Recorded Confirmed biotin 1,000 mcg chewable tablet 1,000 mcg PO QDAY each
[2021-10-21 10:29] VITALS: BP 169/74; PULSE 98; RESP 18; TEMP 36.7; O2SAT 98
[2021-10-21 10:32] LABS: Uric Acid 1.8 mg/dl (2.5-6.2)
== END 2021-10-21 10:53 | disposition home or self-care (01) ==
PROVIDERS: Emergency Provider Nurse Practitioner; PCP Emergency Medicine
DX: M25.531 Pain in right wrist (principal); W19.XXXA Unspecified fall, initial encounter
CPT/HCPCS: 73090; 73110; 73130; 84550; 96372; 99212; G0463

== ENCOUNTER → 2021-10-25 13:01 | Outpatient (CLI) | payer MEDICARE, SELFPAY ==
--- NOTE | 2021-10-25 13:01 | CA_ITS ---
FINAL REPORT TECHNIQUE: Kimball scale, color and spectral doppler images of the bilateral carotid arteries were obtained. CLINICAL HISTORY: Bruit, JOHN, HTN, HLD FINDINGS: Peak systolic velocity in the right internal carotid artery is 100 cm/sec. The internal carotid to common carotid artery ratio is 1.43. There is no significant carotid artery stenosis. There is plaque formation. The right vertebral artery is normal in direction. Peak systolic velocity in the left internal carotid artery is 116 cm/sec. The internal carotid to common carotid artery ratio is 1.93. There is no significant carotid artery stenosis. There is plaque formation. The left vertebral artery is normal in direction. 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 Incidental note is made of a hyperechoic left thyroid nodule. IMPRESSION: No ultrasound evidence of hemodynamically significant carotid artery stenosis. Normal peak systolic velocities and normal internal to common carotid artery ratios bilaterally. Reviewed, Interpreted and Dictated by Jackie Sierra MD Transcribed by Colt Jason Authenticated and . [facility]
== END ==
PROVIDERS: PCP Emergency Medicine; Visit Provider Internal Medicine Cardiovascular Disease
DX: R09.89 Other specified symptoms and signs involving the circulatory and respiratory systems; I65.23 Occlusion and stenosis of bilateral carotid arteries
CPT/HCPCS: 93880

== ENCOUNTER → 2021-11-06 06:59 | Outpatient (CLI) | payer MEDICARE, SELFPAY | PROVIDERS: PCP Emergency Medicine; Visit Provider Emergency Medicine | DX: R35.0 Frequency of micturition (principal) | CPT/HCPCS: 87086 ==

== ENCOUNTER 2021-11-08 10:51 | Emergency (ER) | payer MEDICARE, SELFPAY ==
[2021-11-08 10:55] VITALS: BP 133/76; PULSE 86; RESP 18; TEMP 36.8; O2SAT 98; BMI 29.0
--- NOTE | 2021-11-08 11:08 | HMH.EDUTC ---
[facility] [place] Disposition Clinical Impression: Encounter for laboratory testing for COVID-19 virus Disposition: Home, Self-Care Condition on Discharge: Good Instructions: DI for COVID-19 (Suspected or Confirmed ), Preventing the Spread of Coronavirus Discharge Instructions Additional Instructions: *Monitor Temp, Over the counter Motrin or Tylenol as directed/as needed Tylenol every 4 hours and Motrin every 6 hours (as long as your family doctor has told you that you can take it) for fever or pain. and straight to ER if unable to lower temp less than 101.0 after medication given *Warm salt water gargles may help to soothe the throat *Throat Lozenges *Warm fluids like tea with honey may help to soothe the throat *Sleep elevated *Humidifier/Vaporizer Follow up IMMEDIATELY for new or worsening symptoms or no Noticeable improvement over the next 48-72 hours. 911 for difficulty breathing or swallowing You were tested for today for COVID19 your test result should be back in the next 24-48 hours, you may check your results on the [facility] My Health Portal Make sure to take your Vitamins Vit. C Vit D and Zinc if you can take them Referrals: Deangelo Simpson MD [Primary Care Provider] - As needed Time of Disposition: 11:10 Medical Decision Making - Benjamin Inquiry Pt receiving controlled substance: No Benjamin was queried for this patient: No Vital Signs: 11/08/21 10:55 Temperature 98.2 F Temperature Source Oral Pulse Rate [Left Brachial] 86 Respiratory Rate 18 Blood Pressure [Left Arm] 133/76 Blood Pressure Mean [Left Arm] 95 Blood Pressure Source [Left Arm] Automatic Cuff Blood Pressure Position [Left Arm] Sitting 02 Sat by Pulse Oximetry 98 Oxygen Delivery Method Room Air Orders (Tests/Meds): ORDERS Category Date Time Status Covid-19 Nasal PCR ([facility]) Routine Lab 11/08/21 10:56 Received [facility] [place] HPI - General Stated complaint: covid test Time Seen by Provider: 11/08/21 11:08 Mode of Arrival: Ambulatory Source of Information: Patient Limitations: No Limitations Description of Symptoms (Recalled from Triage Doc. by RN): PATIENT C/O COUGH, FEVER, AND RUNNY NOSE SINCE YESTERDAY. REQUESTING COVID TEST HEENT Symptoms (Recalled from RN notes): Yes Resp Symptoms (Recalled from RN notes): Yes Skin Symptoms (Recalled from RN notes): No MS Symptoms (Recalled from RN notes): No Functional Status (Recalled from RN notes): WNL - History of Present Illness Provider Complaint: Patient states that she has had a dry cough, fever and bodyaches with chills since yesterday States that she was around some people at [employer] that has tested positive for COVID so she wanted to get tested - Related Data Home Medications Medication Instructions Recorded Confirmed biotin 1,000 mcg chewable tablet 1,000 mcg PO QDAY each 04/10/17 11/06/21 cyanocobalamin (vitamin B-12) 100 100 mcg PO ONCE 04/10/17 11/06/21 mcg tablet multivitamin,ln-yibl-mmclrtsw 1 tab PO QDAY 04/10/17 11/06/21 esomeprazole magnesium 40 mg 20 mg PO QDAY cap 04/06/21 11/06/21 capsule,delayed release ciclopirox 8 % topical solution ml TOPICAL 07/18/21 11/06/21 docusate sodium 50 mg capsule 50 mg PO TID PRN cap 11/06/21 11/06/21 Previous Rx's Medication Instructions Recorded Calcium Carbonate/Vitamin D3 500 mg PO BID #28 tab 02/11/20 [Oscal +D 500mg Tab] aspirin 81 mg chewable tablet 81 mg PO DAILY #30 tab 04/07/20 levothyroxine 125 mcg tablet 125 mcg PO DAILY #90 tab 12/25/20 amlodipine 5 mg tablet 5 mg PO QHS #90 tab 05/14/21 losartan 100 mg tablet See Rx Instructions .ROUTE 05/31/21 .COMPLEX #90 tab atorvastatin 40 mg tablet 40 mg PO QDAY #90 tab 08/03/21 baclofen 20 mg tablet See Rx Instructions .ROUTE 08/03/21 .COMPLEX #270 tab furosemide 20 mg tablet See Rx Instructions .ROUTE 08/29/21 .COMPLEX #180 tab alendronate 70 mg tablet 70 mg PO WEEKLY #5 tab 09/04/21 nitrofurantoin 100 mg PO Q12H 10 Days #20 cap 09/25/21 monohydrate/macrocrystals
[2021-11-08 11:18] VITALS: BP 133/76; PULSE 86; RESP 18; TEMP 36.8; O2SAT 98
== END 2021-11-08 11:23 | disposition home or self-care (01) ==
PROVIDERS: Emergency Provider Nurse Practitioner; PCP Emergency Medicine
DX: U07.1 COVID-19 (principal)
CPT/HCPCS: 99212; C9803; G0463; U0003; U0005

== ENCOUNTER → 2021-12-14 12:03 | Outpatient (CLI) | payer MEDICARE, SELFPAY ==
--- NOTE | 2021-12-14 12:09 | XR_ITS ---
FINAL REPORT CLINICAL HISTORY: knee pain COMPARISON: January 10, 2020 FINDINGS: 4 views of the right knee were obtained. There is no acute fracture or dislocation. There are moderate to severe degenerative changes greatest in the patellofemoral joint space. There is a 34 mm soft tissue calcification lateral to the distal femur that may represent a large calcified loose body in the suprapatellar bursa. There is a 2nd presumed loose body inferior to this. There is mild vascular calcification. IMPRESSION: Moderate to severe degenerative change with 2 presumed loose bodies. Reviewed, Interpreted and Dictated by David Sneed III, MD Transcribed by Colt Jason Authenticated and . [facility]
== END ==
PROVIDERS: PCP Emergency Medicine; Visit Provider Orthopaedic Surgery
DX: M25.561 Pain in right knee (principal)
CPT/HCPCS: 73564

== ENCOUNTER → 2022-01-02 09:07 | Outpatient (CLI) | payer MEDICARE, SELFPAY ==
[2022-01-02 09:23] LABS: Microscopic, Urine URINE MICROSCOPIC (MICROSCOPIC)
--- NOTE | 2022-01-02 10:03 | ECG_ITS ---
APPROVED REPORT Exam: Resting ECG HR:98 bpm ECG Measurements Heart Rate 98 AXES [place] 130 P 76 QRSd 96 QRS 49 QT 352 T 80 QTc 408 Conclusion SINUS RHYTHM POSSIBLE LEFT ATRIAL ENLARGEMENT [-0.1mV P-WAVE IN V1/V2] MINIMAL ST DEPRESSION [0.025+ mV ST DEPRESSION] BORDERLINE ECG UNCONFIRMED REPORT Electronically signed by : Luke Kilgore MD 01/05/2022 17:46:52
[2022-01-02 10:09] LABS: Appearance,Urine CLEAR (Clear); Bilirubin,Urine Negative (Negative); Blood, Urine Negative (Negative); Color,Urine YELLOW (Yellow); Glucose,Urine (UA) Negative (Negative); Ketones,Urine Negative (Negative); Leukocyte Esterase,Urine Negative (Negative); Nitrate,Urine Negative (Negative); Protein,Urine Negative (Negative); Specific Gravity, Urine 1.015 (1.005-1.030); Urobilinogen,Urine 0.2 EU/dl (0.2)
[2022-01-02 10:11] LABS: Basophils # 0.1 K/mm3 (0-0.2); Basophils % 0.9 % (0.1-2.0); Eosinophils # 0.1 K/mm3 (0.0-0.4); Eosinophils % 0.6 % (0.1-12.0); Hematocrit 45.5 % (37.0-47.0); Hemoglobin 14.5 g/dL (12.2-16.2); Lymphocytes # 1.4 K/mm3 (0.7-4.5); Lymphocytes % 15.8 % (10-50); Mean Corpuscular HGB Conc 31.8 g/dL (31.8-35.4); Mean Corpuscular Volume 100.6 fl (81-99); Mean Platelet Volume 8.3 fl (7.4-10.4); Monocytes # 0.4 K/mm3 (0.1-1.0); Monocytes % 4.7 % (1.7-9.3); Neutrophils # 6.8 K/mm3 (1.8-7.8); Platelet Count 359 K/mm3 (142-424); Red Blood Count 4.52 M/mm3 (4.20-5.40); Red Cell Distribution Width 14.9 % (11.5-17.5); White Blood Count 8.7 K/mm3 (4.8-10.8)
[2022-01-02 10:32] LABS: Chloride 103 mmol/L (98-107); Potassium 4.2 mmoL/L (3.5-5.1); Sodium 141 mmol/L (136-145)
[2022-01-02 10:35] LABS: Alanine Aminotransferase 17 U/L (12-78); Albumin Level 4.7 g/dl (3.5-5.0); Albumin/Globulin Ratio 1.7 (1.1-1.8); Alkaline Phosphatase 92 U/L (38-126); Anion Gap 16.2 mEq/L (5-15); Aspartate Amino Transferase 31 U/L (14-36); Bilirubin,Total 0.4 mg/dl (0.2-1.3); Blood Urea Nitrogen 10 mg/dl (7-17); Calcium 9.1 mg/dl (8.4-10.2); Carbon Dioxide 26 mmol/L (22.0-30.0); Estimated Glomerular Filt Rate 123 ml/min (>60); GFR (African American) 148 ML/MIN (>60); Globulin 2.7 g/dL (1.3-3.2); Glucose 111 mg/dl (74-100); Total Protein,Serum 7.4 g/dl (6.3-8.2)
[2022-01-02 10:51] LABS: WBC,Urine Occasional #/hpf (0-3)
[2022-01-02 13:15] LABS: Hemoglobin A1C 5.6 % (4.0-6.0)
== END ==
PROVIDERS: PCP Emergency Medicine; Visit Provider Orthopaedic Surgery
DX: E78.5 Hyperlipidemia, unspecified (principal); Z01.818 Encounter for other preprocedural examination; E11.9 Type 2 diabetes mellitus without complications; M25.561 Pain in right knee
CPT/HCPCS: 36415; 80053; 81001; 83036; 85025; 86850; 93005

== ENCOUNTER 2022-01-08 10:40 | Observation (INO) | payer MEDICARE, SELFPAY ==
[2022-01-04 10:53] VITALS: BMI 28.3
[2022-01-08] VITALS (22 sets, daily range): BP systolic 120–170; BP diastolic 55–81; PULSE 87–99; RESP 16–20; TEMP 36.4–43; O2SAT 92–98
[2022-01-08 06:23] LABS: Coronavirus 19, PCR Not Detected (NotDetected); Influenza A, PCR Not Detected (NotDetected); Influenza B, PCR Not Detected (NotDetected)
--- NOTE | 2022-01-08 06:46 | XR_ITS ---
FINAL REPORT CLINICAL HISTORY: preop, smoker, cough COMPARISON: February 27, 2021 FINDINGS: The heart size is normal. The mediastinum is within normal limits. There is mild bibasilar atelectasis or scarring. There is no pleural effusion. There is no pneumothorax. Postoperative changes are seen in the spine. IMPRESSION: Mild bibasilar atelectasis or scarring. Reviewed, Interpreted and Dictated by David Sneed III, MD Transcribed by Colt Jason Authenticated and [facility]
--- NOTE | 2022-01-08 08:46 | EXP.ANES.CKL ---
[facility] Medical History Chest pain Daytime somnolence Dyspnea Ex-smoker History of gastroesophageal reflux (GERD) Sleep apnea Snoring Thyroid cancer Surgical History History of back surgery History of left hip replacement Family History (Updated 01/08/22 @ 06:18 by Deepika Dillon RN) Other Family history of cancer Family history of hypertension Family history of myocardial infarction Family history of stroke No significant family history Social History Smoking Status: Former smoker alcohol intake: never substance use type: denies use current occupational status: other Travel in the last 8 weeks: None household members: family housing: house caffeine: Yes [facility] Anesthesia Checklist Patient Identification Patient Identification: Arm Band Structural Data Admitted From: Home Planned Operative Procedure/s: Right Total Knee Arthroplasty Consent for Planned Operative Procedure(s) Verified: Yes Verified Documents: Surgical Consent and History and Physical NPO Status Verified Time NPO: 00:00 Additional verifications Anesthesia Reactions: No Hx Blood Transfusions: No Blood Transfusion Reaction: No Airway Assessment C-Spine Mobility Assessed: Yes TMJ Mobility Assessed: Yes Dentition: Edentulous Neurological Assessment Level of Consciousness: Awake and Alert Anesthesia Plan Anesthesia Risk discussed: Yes Anesthesia Plan: Verified ASA Class: II Anesthesia Type: General (SAB planned, but with low threshhold to convert to GA d/t to pt's lower back surgery. SAB attempted but unsuccessful and converted to GA)
--- NOTE | 2022-01-08 10:02 | EXP.ANES.I ---
[facility] Anesthesia Record Part I Anesthesia Record I Intake, IV Amount: 1,000 Estimated blood loss (mL): 10 Urine output (mL): 0 Blood Products used (#): none Blood Pressure: 139/81 SaO2: 94 Pulse Rate: 95 Respiratory Rate: 16 Temperature: 97.5 F Patient is:: Drowsy and Stable Stable to PACU at:: 09:55
--- NOTE | 2022-01-08 10:04 | EXP.OP.NOTE ---
Date of procedure: 01/08/22 Pre-op Diagnosis:: Right knee osteoarthritis Post-op Diagnosis:: Right knee osteoarthritis Procedure performed:: Right total knee arthroplasty Surgeon:: Jericho Martines MD Choir Singer(s):: VICENTE Freire ADVERTISING DISPATCH CLERK:: Robbie Molina Anesthesia: GETA, regional and local Estimated blood loss (mL): 25 Clinical Note:: Dawna is a very pleasant 66-year-old female that has been struggling with activity limiting right knee pain that is affecting her quality of life. History of a right knee arthroscopy in 2000 and a left hip replacement a few years ago. She takes baclofen and gabapentin for pain. She is retired and ambulates with cane assist. She was initially scheduled for a right knee replacement with Dr. Juarez a couple of years ago but this was postponed due to COVID. She has failed exhaustive conservative treatment measures. After discussing all the risks, benefits and alternatives to surgery she agreed to proceed with right total knee replacement. Operative findings:: Right knee severe tricompartmental degenerative changes Operative note:: The patient was seen in the preoperative holding area. The right knee was marked to confirm the correct operative site. She received Ancef 2 g IV prophylactic antibiotics within 1 hour of incision time. She was seen by anesthesia and brought back to the OR. Spinal was attempted but was not successful general anesthesia was induced without difficulty. A bump was placed underneath the right hip. Nonsterile tourniquet was applied to the right thigh. The right lower extremity was prepped and draped in the usual sterile fashion. Timeout was performed to confirm right total knee arthroplasty on patient Dawna Thomas. The right lower extremity was exsanguinated with an Esmarch. Tourniquet was inflated to 300 mmHg. With the knee flexed a midline incision was made with a 10 blade scalpel. Full-thickness medial and lateral flaps were elevated. We then made a medial parapatellar arthrotomy with a fresh 10 blade scalpel. The patella was everted and the patellar fat pad and anterior femoral fat pads were excised. Marginal osteophytes were removed. Medial release was performed with the Bovie electrocautery. Z retractors were placed medially and laterally. The distal femur was then drilled and the intramedullary distal femoral cutting guide was pinned in place set at a 5 degree valgus cut for a 1 cm cut. This cut was made with the oscillating saw. The femur was then sized to a size 4 set at 3 degrees of external rotation. The 4-in-1 cutting guide was pinned in place. Anterior and posterior cuts were made as were the chamfer cuts. We then turned our attention to the tibia. The tibia was subluxed anteriorly and the PCL retractor was placed. Medial and lateral Hohmann retractors were placed. We used the extra medullary tibial cutting guide set at a 3 degree posterior slope for the proximal tibial cut. 5 mm of bone was removed from the low medial side and a centimeter from the high lateral side. Medial and lateral menisci were then excised as were the posterior osteophytes. Flexion and extension gaps were checked and with the 9 mm block we achieved full extension and flexion with excellent alignment. The tibia was then sized to a size 3 tibial tray centered off the medial third of the tibial tubercle. The tray was pinned in place. We then impacted the tibial fins. A size 4 trial femur was then placed we made the box cut with the reamer and punch. We then trialed with a 9 mm poly-, 4 femur and 3 tibia. With these trial components in place we achieved full extension and flexion. We then turned our attention to the patella. Patella was sized to 20 mm in thickness and we made a 7 mm patellar cut with the reciprocal saw. A 29 thin trial was placed and patella drill holes were made. With the trial button in place there was excellent tracking. Trial components were then removed. Final components op
--- NOTE | 2022-01-08 10:17 | XR_ITS ---
FINAL REPORT CLINICAL HISTORY: post total knee COMPARISON: December 14, 2021 FINDINGS: Two views of the right knee were obtained. There has been right knee arthroplasty. Soft tissue air is noted. IMPRESSION: Knee arthroplasty in anatomic alignment. Reviewed, Interpreted and Dictated by David Sneed III, MD Transcribed by Colt Jason Authenticated and [facility]
--- NOTE | 2022-01-08 11:36 | HMH.PHAINT1 ---
Pharmacy Intervention Comments: MEDICATION RECONCILIATION COMPLETED ON PATIENT USING EXTERNAL FILL HISTORY FROM PHARMACY AND LIST FROM PCP OFFICE. -CAT BYRD, [id number]
--- NOTE | 2022-01-08 13:15 | EXP.ANES.II ---
[facility] Anesthesia Record Part II Anesthesia Record Part II Discharge Time: 10:35 Destination: Surgical Day Care (OP Surgery) PACU nurse assessment reviewed?: Yes Patient Condition:: Good Anesthesia Complications:: None Swallowing reflex intact?: Yes Cyanosis?: No Blood Pressure: 146/69 Pulse Rate: 93 Temperature: 97.5 F Mental Status: Alert & Oriented Pain level:: 4 Nausea and/or vomitting:: None Intake, IV Amount: 0
--- NOTE | 2022-01-08 13:48 | SW/DCPLANNER ---
Addendum entered by Ana Li 01/09/22 10:09: Jose mendez/ [facility] services will begin tomorrow for this patient. Addendum entered by Ana Li 01/09/22 09:22: Patient information/order has been faxed to [facility] for PT/OT services. Patient will discharge home today. Original Note: I spoke with this patient regarding discharge plans. PT/OT evaluated patient this afternoon and stated that patient did well and could return home. Patient is agreeable with home health services at time of discharge. Patient has all DME needed at home. I will set patient up with home health services (does not have a preference on agency) at time of discharge. Patient should discharge tomorrow pending no setbacks.
--- NOTE | 2022-01-08 13:48 | HMH.OTEV ---
OT Inpatient Evaluation Rehab OT IP Evaluation Start: 01/08/22 10:15 Freq: ONCE Status: Complete Protocol: Document 01/08/22 13:42 [facility] (Rec: 01/08/22 13:48 [facility] [id number]) Rehab OT IP Assessment Subjective History Pt oriented x 4 on arrival. Pt agreeable to engage in therapy evaluation. Pt was admitted on 01/08/22 following a right TKA. Prior to surgery, pt lived at home with her . Pt claims she was indepenent with all ADLs and IADLs. She used a cane during ambulation and still drove. Subjective I really don't have pain. Objective Patient Orientation Person,Place,Birthday,Year Upper Extremity Gross ROM WFL Bed Mobility bed mobility-scooting,bed mobility - supine/sit,bed mobility - rolling Assist Level Contact Guard/Hand Hold Transfer Training Sit/Stand Transfer Assist Level Contact Guard/Hand Hold Chair Transfer Ability Contact Guard/Hand Hold Chair Transfer Technique Sit to/from Ambulatory Chair Transfer Assistive Devices Rolling Walker Performing Toilet Hygiene Ability Standby Assistance Overall Commode/Toilet Transfer Ability Assistance x1 Commode/Toilet Transfer Technique Sit to/from Ambulatory Rehab OT IP prob,goals,plan Problems Date of Evaluation: 01/08/22 OT IP Problems Bed Mobility,Transfers,Balance ,Self care,Safety Rehab Potential Rehab Potential Good Equipment Needs Assistive Devices Rolling / Wheeled Walker Plan OT intervention Plan Bed Mobility,Transfers,Balance ,Self care,Safety,Therapeutic Exercise OT Plan Frequency BID Duration LOS Discharge Goals Bed Mobility Ability Standby Assistance Sit to Stand Chair Transfer Ability Supervision/Stand by Chair Transfer Ability Supervision/Stand by Chair Transfer Technique Sit to/from Ambulatory Chair Transfer Assistive Devices Rolling Walker Feeding Ability Assist with Tray Set Up Lower Body Dressing Ability Assistance X1 Upper Body Dressing Ability Standby Assistance Bathing Ability Assistance x1 Performing Toilet Hygiene Ability Standby Assistance Overall Commode/Toilet Transfer Ability Standby Assistance Commode/Toilet Transfer Technique Sit to/from Ambulatory Discharge Plan OT Discharge Plan
--- NOTE | 2022-01-08 13:53 | EXP.HP ---
History of Present Illness *Admission Date: 01/08/22 *Reason for visit:: Post-op right total knee replacement *History of present illness: Pt is a pleasant 66 y/o woman with PMHx of HTN, HLD, gout, anxiety, arthritis s/p left hip replacement and now right total knee replacement earlier today with Dr. Jericho Martines. Right knee replacement this morning reportedly went very well, pt has already been visited by PT and has been up to walk briefly. She denies any pain, complaints, or concerns. [facility] Medical History Chest pain Daytime somnolence Dyspnea Ex-smoker History of gastroesophageal reflux (GERD) Sleep apnea Snoring Thyroid cancer Surgical History (Updated 01/08/22 @ 14:03 by Blu Hawkins MD) History of back surgery History of left hip replacement Family History (Updated 01/08/22 @ 06:18 by Deepika Dillon RN) Other Family history of cancer Family history of hypertension Family history of myocardial infarction Family history of stroke No significant family history Social History Smoking Status: Former smoker alcohol intake: never substance use type: denies use current occupational status: other Travel in the last 8 weeks: None household members: family housing: house caffeine: Yes Review of Systems Constitutional Constitutional: Denies chills, Denies fever(s), Denies headache(s) and Denies malaise Eyes Eyes: Denies change in vision and Denies loss of vision ENT Ears, Nose, Mouth, and Throat: Denies dysphagia and Denies headache(s) *Cardiovascular Cardiovascular: Denies chest pain, Denies dyspnea, Denies edema and Denies palpitations *Respiratory Respiratory: Denies cough, Denies dyspnea and Denies wheezing *Gastrointestinal Gastrointestinal: Denies abdominal pain, Denies change in stool character, Denies constipation, Denies dysphagia and Denies vomiting *Musculoskeletal Musculoskeletal: Reports as per HPI *Neurologic Neurologic: Denies abnormal movements, Denies abnormal speech, Denies confusion, Denies headache(s) and Denies loss of vision Psychiatric Psychiatric: Denies abnormal sleep pattern, Denies anhedonia, Denies anxiety and Denies confusion Endocrine Endocrine: Denies palpitations Allergic/Immunologic Allergic/Immunologic: Denies wheezing Meds Home Medications and Allergies Home Medications Medication Instructions Recorded Confirmed Type biotin 1,000 mcg chewable tablet 1,000 mcg PO DAILY Supplement 04/10/17 01/08/22 History cyanocobalamin (vitamin B-12) 100 100 mcg PO DAILY Supplement 04/10/17 01/08/22 History mcg tablet (Vitamin B-12) esomeprazole magnesium 40 mg 20 mg PO DAILY GERD 04/06/21 01/08/22 History capsule,delayed release (Nexium) docusate sodium 50 mg capsule 50 mg PO TIDP PRN stool softener 11/06/21 01/08/22 History alendronate 70 mg tablet 70 mg PO WEEKLY Osteoporosis 01/04/22 01/08/22 History allopurinol 300 mg tablet 300 mg PO DAILY gout 01/04/22 01/08/22 History amlodipine 5 mg tablet 5 mg PO HS Hypertension 01/04/22 01/08/22 History baclofen 20 mg tablet 20 mg PO TID STOMACH CRAMPS 01/04/22 01/08/22 History calcium carbonate 500 mg-vitamin 500 mg PO BID Supplement 01/04/22 01/08/22 History D3 5 mcg (200 unit) tablet fluoxetine 20 mg capsule 20 mg PO DAILY Depression 01/04/22 01/08/22 History gabapentin 600 mg tablet 600 mg PO TID Pain #90 tabs 01/04/22 01/08/22 Rx levothyroxine 125 mcg tablet 125 mcg PO DAILY THYROID 01/04/22 01/08/22 History losartan 100 mg tablet 100 mg PO DAILY Hypertension 01/04/22 01/08/22 History potassium chloride 10 mEq 10 meq PO DAILY Supplement 01/04/22 01/08/22 History capsule,extended release aspirin 325 mg tablet 325 mg PO DAILY VTE PROPHYLAXIS 01/08/22 01/08/22 History atorvastatin 40 mg tablet 40 mg PO DAILY Cholesterol 01/08/22 01/08/22 History furosemide 20 mg tablet 20 mg PO BID Fluid 01/08/22 01/08/22 Histo
--- NOTE | 2022-01-08 13:56 | HMH.PTEV ---
Physical Therapy Evaluation Rehab PT IP Evaluation Start: 01/08/22 10:15 Freq: ONCE Status: Active Protocol: Document 01/08/22 13:42 [email or web address] (Rec: 01/08/22 13:52 DIANNE [id number]) Subjective/History History History Pt is a 66 y/o female that underwent uneventful right TKA on 01/08/22. Pt reports she lives in a trailer with her who is retired and able to care for her. Pt reports prior to surgery she used a straight cane for ambulation and also owns a standard walker. Pt reports she has 4 stairs to get into her home with hand rails. Subjective Subjective Pt reports no knee pain if she doesn't move the leg. Pt was educated on standard walker use/safety and weight bearing status. Rehab PT IP Eval Objective Appearance Patient Behavior Appropriate,Cooperative Patient Orientation Person,Place,Birthday, Situation Difficulty following instructions none Speech Pattern Clear,Appropriate,Coherent Ambulation Patient Able to Ambulate Yes Ambulation Observation IP General Gait Pattern Observation Wide Based Gait,Shuffling Step ,Decrease Weight Bear (R) Ambulation Distance (feet) 15 Ambulation Assistive Device Standard Walker Ambulation Ability Contact Guard/Hand Hold Balance Ability to Arise Able, uses arms to help Sitting Balance Steady, safe Standing Balance Steady, wide stance Dynamic Sitting Balance Ability Good Dynamic Standing Balance Ability Good Transfers Bed Transfer Ability Supervision/Stand by Sit to Stand Bed Transfer Ability Contact Guard/Hand Hold Rehab PT IP prob,goals,plan Problems Date of Evaluation: 01/08/22 PT IP Problems Bed Mobility,Transfers,Gait, Balance,Self care,Safety Rehab Potential Rehab Potential Good Equipment Needs Assistive Devices Rolling / Wheeled Walker Plan PT Intervention Plan Bed Mobility,Transfers,Gait, Balance,Self care,Safety, Therapeutic Exercise PT Plan Frequency BID Duration LOS Discharge Goals Bed Transfer Ability Independent Sit to Stand Chair Transfer Ability Supervision/Stand by Ambulati
--- NOTE | 2022-01-08 14:03 | SUR.OPER ---
adductor canal block done following total knee surgery in the OR by melinda betancourt start time - 946 end time- 949 time out completed 945
--- NOTE | 2022-01-08 20:15 | PC.NURSE ---
Pt is A/Ox4. She has a polar lilly on her right knee, and skud on her left for VTE. She has ambulated to the bathroom with assist x1, and uses her walker from home. She is RA, and has tolerated her diet well. She has ambulated to the bathroom a few times. She has not complained of pain during my shift.
[2022-01-09 03:20] VITALS: BP 155/52; PULSE 88; RESP 20; TEMP 36.8; O2SAT 93
--- NOTE | 2022-01-09 05:06 | PC.NURSE ---
Pt has c/o pain in right knee this shift and has been medicated PRN per MAY. she has ambulated to the bathroom with a walker and standby assist. pt has tolerated well. bandage and polar pack remain in place to RLE. BLE pink and warm.
[2022-01-09 06:51] LABS: Basophils % 0.2 % (0.1-2.0); Eosinophils % 0.4 % (0.1-12.0); Hematocrit 32.8 % (37.0-47.0); Hemoglobin 10.2 g/dL (12.2-16.2); Lymphocytes # 2.2 K/mm3 (0.7-4.5); Lymphocytes % 29.5 % (10-50); Mean Corpuscular Hemoglobin 31.5 pg (27.0-31.2); Mean Corpuscular Volume 101.6 fl (81-99); Mean Platelet Volume 7.5 fl (7.4-10.4); Monocytes # 0.7 K/mm3 (0.1-1.0); Monocytes % 9.5 % (1.7-9.3); Neutrophils # 4.5 K/mm3 (1.8-7.8); Neutrophils % 60.4 % (37.0-80.0); Platelet Count 354 K/mm3 (142-424); Red Blood Count 3.23 M/mm3 (4.20-5.40); Red Cell Distribution Width 14.8 % (11.5-17.5); White Blood Count 7.4 K/mm3 (4.8-10.8)
[2022-01-09 06:52] LABS: Chloride 105 mmol/L (98-107); Potassium 3.2 mmoL/L (3.5-5.1); Sodium 139 mmol/L (136-145)
[2022-01-09 06:55] LABS: Anion Gap 8.2 mEq/L (5-15); Blood Urea Nitrogen 10 mg/dl (7-17); Calcium 8.1 mg/dl (8.4-10.2); Carbon Dioxide 29 mmol/L (22.0-30.0); Creatinine Clearance Estimated 56 mL/min (50-200); Estimated Glomerular Filt Rate 123 ml/min (>60); GFR (African American) 148 ML/MIN (>60); Glucose 88 mg/dl (74-100)
[2022-01-09 08:00] VITALS: BP 130/60; PULSE 85; RESP 14; TEMP 36.9; O2SAT 97
--- NOTE | 2022-01-09 08:54 | EXP.ORTH.PN ---
Subjective *Date: 01/09/22 *Time: 09:09 Interval history: Mrs. Thomas is a 66 year old female patient who underwent an uneventful right total knee arthroplasty performed yesterday 01/09/[address] Martines. Today the patient is postop day #1. This morning she is sitting up comfortably in the bed. She reports right knee pain that she states is well controlled with as needed pain medication and rest. She states that she is eating and drinking well and denies any episodes of nausea or vomiting. No history of any distal tingling/numbness. She reports that she has ambulated a few times with the assistance of physical therapy and the use of a walker and has managed this very well. No history of any fevers, chills, or rigors. She denies any other symptoms or concerns at this time. Ortho Exam (Inpt) Vital signs and Labs for Last 24 Hours: Temp Pulse Resp BP Pulse Ox 98.5 F 85 14 130/60 97 01/09/22 08:00 01/09/22 08:00 01/09/22 08:00 01/09/22 08:00 01/09/22 08:00 Laboratory Results - last 24 hr 01/09/22 06:05: WBC 7.4, RBC 3.23 L, Hgb 10.2 L, Hct 32.8 L, MCV 101.6 H, MCH 31.5 H, MCHC 31.0 L, RDW 14.8, Plt Count 354, MPV 7.5, Neut % (Auto) 60.4, Lymph % (Auto) 29.5, [place] % (Auto) 9.5 H, Eos % (Auto) 0.4, Baso % (Auto) 0.2, Neut # (Auto) 4.5, Lymph # (Auto) 2.2, [place] # (Auto) 0.7, Eos # (Auto) 0.0, Baso # (Auto) 0.0 01/09/22 06:05: Sodium 139, Potassium 3.2 L, Chloride 105, Carbon Dioxide 29, Anion Gap 8.2, BUN 10, Creatinine 0.50 L, Estimated Creat Clear 56, Estimated GFR 123, Est GFR ( Amer) 148, Glucose 88, Calcium 8.1 L I & O for Labs for Last 24 Hours: Intake & Output 10/12/2001/07/22 01/08/22 01/09/22 23:59 23:59 23:59 23:59 Intake Total 1480 / 1480 1444 / 1444 Output Total 0 / 0 0 / 0 Balance 1480 / 1480 1444 / 1444 Head: Present normocephalic and atraumatic Eyes: Present as per HPI ENT: Present normal exam Neck: Present normal inspection, full ROM and trachea midline; Absent lymphadenopathy Respiratory: Present normal respiratory effort, able to speak in complete sentences and symmetric chest movement; Absent accessory muscle use Cardiac: Present Reg Rate and Rhythm GI: Present soft; Absent tenderness Comment:: Upon examination of the lower extremities: The limb lengths are equal. Upon examination of the right knee: Out of the surgical dressings, the surgical incision appears healthy and healing well. No erythema, induration, purulent drainage, bleeding, or other signs of infection noted. There is a Dermabond Prineo skin closure system in place. Attempted movements of the right knee are somewhat painful. Thigh and calf are soft nontender; Homans' sign is negative. No clinical evidence of DVT noted. Posterior tibial pulse 2+; capillary refill is brisk. Sensation to light touch is grossly intact throughout. Patient is actively mobilizing the foot, ankle, and toes. Diagnostic imaging: Postoperative x-ray performed yesterday 01/08/2022 at [facility] reviewed along with radiologist report. X-ray of the right knee demonstrates a total knee arthroplasty with orthopedic components in satisfactory alignment and fixation. No evidence of orthopedic complications noted. Radiologist report is as follows: FINDINGS: Two views of the right knee were obtained. There has been right knee arthroplasty. Soft tissue air is noted. IMPRESSION: Knee arthroplasty in anatomic alignment. Reviewed, Interpreted and Dictated by David Sneed III, MD Transcribed by Colt Jason Authenticated and [facility] [place] Skin: Present intact, warm and normal turgor; Absent cyanosis, erythema, lesions or jaundice Neuro: Present Cranial Nerve 2-12 Intact, Motor Function Intact, Sensory Function Intact, alert, awake, oriented x 3, tone normal and moves all extremities; Absent Numbness or Tingling Assessment and Plan *Assessment and plan (1)
--- NOTE | 2022-01-09 09:17 | EXP.DC.SUM ---
General Admission date:: 01/08/22 Discharge date: 01/09/22 HPI HPI HPI: Pt is a pleasant 66 y/o woman with PMHx of HTN, HLD, gout, anxiety, arthritis s/p left hip replacement and now right total knee replacement earlier today with Dr. Jericho Martines. Right knee replacement this morning reportedly went very well, pt has already been visited by PT and has been up to walk briefly. She denies any pain, complaints, or concerns. Hospital Course Hospital Course Hospital Course: Pt has overall done very well post-op right knee replacement on 01/08. She has been up and walking, working with physical therapy. Pt feels ready for discharge home where she will continue home health physical thereapy and occupational therapy. Exam Data for Last 24 hours Vital signs and Labs for Last 24 Hours: Temp Pulse Resp BP Pulse Ox 98.5 F 85 14 130/60 97 01/09/22 08:00 01/09/22 08:00 01/09/22 08:00 01/09/22 08:00 01/09/22 08:00 Laboratory Results - last 24 hr 01/09/22 06:05: WBC 7.4, RBC 3.23 L, Hgb 10.2 L, Hct 32.8 L, MCV 101.6 H, MCH 31.5 H, MCHC 31.0 L, RDW 14.8, Plt Count 354, MPV 7.5, Neut % (Auto) 60.4, Lymph % (Auto) 29.5, [place] % (Auto) 9.5 H, Eos % (Auto) 0.4, Baso % (Auto) 0.2, Neut # (Auto) 4.5, Lymph # (Auto) 2.2, [place] # (Auto) 0.7, Eos # (Auto) 0.0, Baso # (Auto) 0.0 01/09/22 06:05: Sodium 139, Potassium 3.2 L, Chloride 105, Carbon Dioxide 29, Anion Gap 8.2, BUN 10, Creatinine 0.50 L, Estimated Creat Clear 56, Estimated GFR 123, Est GFR ( Amer) 148, Glucose 88, Calcium 8.1 L I & O for Last 24 hours: Intake & Output 01/06/22 01/07/22 01/08/22 01/09/22 23:59 23:59 23:59 23:59 Intake Total 1480 / 1480 1444 / 1444 Output Total 0 / 0 0 / 0 Balance 1480 / 1480 1444 / 1444 Constitutional Constitutional: no acute distress and cooperative *Routine HEENT Exam Head: Present normocephalic and atraumatic Eye: Present EOMI and PERRL ENT: Present mucous membranes moist and oropharynx clear *Routine Neck Exam Neck: Present supple and full ROM *Routine Respiratory Exam Respiratory: Present CTA bilaterally; Absent accessory muscle use or respiratory distress *Routine Cardiovascular Exam Cardiovascular: Present RRR, Normal S1 and Normal S2; Absent murmur *Routine Abdominal Exam Abdominal: Present soft and normoactive bowel sounds; Absent tenderness, distended, rebound or guarding *Routine Extremities Exam Extremities: Present full ROM, pulses intact and normal capillary refill; Absent edema or tenderness Comments: Bandage on right knee, no surrounding swelling, erythema, or drainage *Routine Neurological Exam Neurological: Present alert, oriented X3, CN II-XII intact, moving all extremities, normal tone and normal speech; Absent sensory deficit or motor deficit Routine Psychiatric Exam Psychiatric: Present normal affect, normal thought process, cooperative, good insight and good judgment Results Data Completed and Pending Labs on day of discharge: Labs from last 24 hours 01/09/22 01/09/22 06:05 06:05 WBC 7.4 RBC 3.23 L Hgb 10.2 L Hct 32.8 L MCV 101.6 H MCH 31.5 H MCHC 31.0 L RDW 14.8 Plt Count 354 MPV 7.5 Neut % (Auto) 60.4 Lymph % (Auto) 29.5 [place] % (Auto) 9.5 H Eos % (Auto) 0.4 Baso % (Auto) 0.2 Neut # (Auto) 4.5 Lymph # (Auto) 2.2 [place] # (Auto) 0.7 Eos # (Auto) 0.0 Baso # (Auto) 0.0 Sodium 139 Potassium 3.2 L Chloride 105 Carbon Dioxide 29 Anion Gap 8.2 BUN 10 Creatinine 0.50 L Estimated Creat Clear 56 Estimated GFR 123 Est GFR ( Amer) 148 Glucose 88 Calcium 8.1 L DS: Diagnosis Discharge Diagnosis (1) Status post total right knee replacement: Status: Acute Problem details: Patient doing very well, she will continue PT and OT with home health (2) Hyperlipidemia: Status: Chronic Problem details: Resume home medications (3) Hypertension: Status: Chronic Problem details:
--- NOTE | 2022-01-10 13:34 | CARE MANAGER ---
Spoke with Ms. Thomas regarding post discharge status. Patient states that she was able to pickle maker her prescription for oxycodone. She is aware of f/u appt with Dr. Martines on 01/30. She stated that she was very pleased with the care she received at our facility and I asked her to be sure to complete the survey if she got one in the mail, and return it to us. No concerns or complaints at time of phone call.
== END 2022-01-09 10:50 | disposition home health service (06) ==
LOC: 2ND 10:41
PROVIDERS: Admitting Provider Emergency Medicine; PCP Emergency Medicine; Referring Provider Orthopaedic Surgery; Visit Provider Emergency Medicine
PROC: (CPT 27447; principal; 2022-01-08 07:30)
DX: M17.11 Unilateral primary osteoarthritis, right knee (principal); I10 Essential (primary) hypertension; E78.5 Hyperlipidemia, unspecified; Z20.822 Contact with and (suspected) exposure to COVID-19; Z87.891 Personal history of nicotine dependence; Z79.899 Other long term (current) drug therapy; Z96.642 Presence of left artificial hip joint; F32.A Depression, unspecified
CPT/HCPCS: 27447; G0378; 36415; 71045; 73560; 80048; 85025; 86850; 97116; 97161; 97166; 97530; C1713; C1776; C9803; J0131; J2405; J2704; U0003; U0005

== ENCOUNTER → 2022-01-18 13:30 | Outpatient (CLI) | payer MEDICARE, SELFPAY ==
--- NOTE | 2022-01-18 13:35 | XR_ITS ---
FINAL REPORT CLINICAL HISTORY: s/p Rt TKA COMPARISON: 01/08/2022 FINDINGS: Right knee Three views were obtained. There is no acute fracture or dislocation. There are postoperative changes from knee arthroplasty. Soft tissue air has improved. There is soft tissue swelling. Moderate joint effusion is identified. IMPRESSION: Postsurgical changes with improved soft tissue air. Reviewed, Interpreted and Dictated by David Sneed III, MD Transcribed by Chandrika Culver Authenticated and [facility]
== END ==
PROVIDERS: PCP Emergency Medicine; Visit Provider Orthopaedic Surgery
DX: Z96.651 Presence of right artificial knee joint (principal); M25.561 Pain in right knee
CPT/HCPCS: 73562

== ENCOUNTER → 2022-03-06 10:27 | Outpatient (CLI) | payer MEDICARE, SELFPAY ==
--- NOTE | 2022-03-06 10:41 | XR_ITS ---
FINAL REPORT CLINICAL HISTORY: s/p total knee COMPARISON: 01/18/2022 FINDINGS: Right ankle Three views were obtained. There is no acute fracture or dislocation. There are postoperative changes from knee arthroplasty. Anterior soft tissue swelling is seen. There is a moderate joint effusion. Mild vascular calcification is identified. IMPRESSION: Postsurgical changes as detailed above. Moderate joint effusion. Reviewed, Interpreted and Dictated by David Sneed III, MD Transcribed by Chandrika Culver Authenticated and . [facility]
== END ==
PROVIDERS: PCP Emergency Medicine; Visit Provider Orthopaedic Surgery
DX: Z96.651 Presence of right artificial knee joint (principal); M25.561 Pain in right knee
CPT/HCPCS: 73562

== ENCOUNTER → 2022-03-13 13:20 | Outpatient (CLI) | payer MEDICARE, SELFPAY ==
--- NOTE | 2022-03-13 13:21 | US_ITS ---
FINAL REPORT CLINICAL HISTORY: bilateral lower extremity pain, HTN, HLD, previous smoker FINDINGS: ANKLE-BRACHIAL PRESSURE INDICES Pressure indices are as follows: RIGHT LOWER EXTREMITY: Ankle-brachial pressure index: 0.8 Comments: LEFT LOWER EXTREMITY: Ankle-brachial pressure index: 0.8 Comments: CONCLUSION: Mild obstructive peripheral vascular disease of the lower extremities Reviewed, Interpreted and Dictated by David Sneed III, MD Transcribed by Alma Rosa Rubio Authenticated and [facility]
== END ==
PROVIDERS: PCP Emergency Medicine; Visit Provider Podiatrist
DX: R09.89 Other specified symptoms and signs involving the circulatory and respiratory systems (principal)
CPT/HCPCS: 93923

== ENCOUNTER → 2022-04-03 15:30 | Outpatient (CLI) | payer MEDICARE, SELFPAY ==
[2022-04-03 17:48] LABS: Blood Urea Nitrogen 11 mg/dl (7-17); Estimated Glomerular Filt Rate 99 ml/min (>60); GFR (African American) 120 ML/MIN (>60)
== END ==
PROVIDERS: PCP Emergency Medicine; Visit Provider Internal Medicine Cardiovascular Disease
DX: Z01.812 Encounter for preprocedural laboratory examination (principal)
CPT/HCPCS: 36415; 82565; 84520

== ENCOUNTER → 2022-04-04 13:49 | Outpatient (CLI) | payer MEDICARE, SELFPAY ==
--- NOTE | 2022-04-04 13:49 | CT_ITS ---
FINAL REPORT CLINICAL HISTORY: abnl ayanna, peripheral vascular disease FINDINGS: CT ABDOMEN, CT PELVIS, CTA ABDOMEN, CTA PELVIS AND CTA LOWER EXTREMITY RUNOFF COMPARISON: None TECHNIQUE: Thin section axial CT with IV contrast supplemented with multiplanar reconstruction under CT Angiogram protocol FINDINGS: CT ANGIOGRAM ABDOMEN AND PELVIS: Moderate diffuse plaque disease is present. No aneurysm or dissection is present. Central mesenteric and renal arteries are patent. However high-grade stenosis is noted of the bilateral renal arteries. Iliac vessels show moderate diffuse plaque disease without critical stenosis. CTA RIGHT LOWER EXTREMITY: Common femoral artery is widely patent. High-grade stenosis is seen of the mid SFA of 70-80%. Popliteal artery is small in caliber without focal stenosis. This may reflect inflow disease. 3 vessel runoff right calf is present. CTA LEFT LOWER EXTREMITY: Common femoral artery is widely patent. Focal high-grade stenosis of the distal SFA is noted of 70-80%. There is a separate stenosis of the proximal popliteal artery of 50-60%. Mid and distal popliteal artery are widely patent. Three-vessel of left calf is present. Abdomen: Solid abdominal organs are normal aside from right renal cyst. Patient is status post cholecystectomy. Pelvis: No bowel obstruction is seen. There is no free fluid. IMPRESSION: 1. No significant aortoiliac inflow disease 2. Moderate bilateral SFA disease and left popliteal disease with focal stenoses. These may be amenable to endovascular treatment 3. No evidence of significant infrapopliteal disease 4. Bilateral renal artery stenoses This study was performed using automated techniques to achieve radiation exposure as low as reasonably achievable Authenticated and [facility]
== END ==
PROVIDERS: PCP Emergency Medicine; Visit Provider Internal Medicine Cardiovascular Disease
DX: E78.5 Hyperlipidemia, unspecified (principal); I10 Essential (primary) hypertension; R68.89 Other general symptoms and signs
CPT/HCPCS: 75635; Q9967

== ENCOUNTER 2022-04-16 11:00 | Outpatient (RCR) | payer MEDICARE, SELFPAY ==
--- NOTE | 2022-02-07 10:41 | HMH.PTOPEV ---
PT Outpatient Evaluation Rehab PT Outpatient Evaluation Start: 02/07/22 10:22 Freq: Status: Active Protocol: Document 02/07/22 10:22 VAL (Rec: 02/07/22 10:41 VAL [id number]) E-signed By Tomasz Sánchez, PT Outpatient Therapy Subjective History Subjective History Patient is a 66 year old female presenting to outpatient PT with reports of R post-surgical knee pain S/P R TKA performed 1 month ago. Patient reports hx of chronic R knee pain of insidious onset starting approx 4 years ago. Patient has been being seen by home health PT since the surgery. Comorbidities include hx of OP, OA HTN, HL, CTR B, LS fusion and L ABBY. Chief Complaint Pain,Stiff,Swelling,Weakness Symptom Type Ache,Sharp Symptoms Relieved By Rest/Positioning,Ice,OTC Meds, Prescription Meds Symptoms Aggravated By Standing,Physical Activity, Walking Prior Functional Limitations Standing,Walking Current Functional Limitations Housework,Sleeping,Standing, Squatting,Walking,Stairs, Balance Symptom Description Constant but Variable Level of pain today (0-10) 4 Pain scale - at its best (0-10) 4 Pain scale - at its worst (0-10) 7 Hip/Knee Eval Gait Observation General Gait Pattern Observation Antalgic Gait,Decrease Weight Bear (R) Assistive Device Assistive Devices Standard Walker MMT right Hip Flexion Strength Grade 4 Good Hip Abduction Strength Grade 4 Good Hip Adduction Strength Grade 4 Good Hip Extension Strength Grade 4- Good- Hip External Rotation Strength Grade 4 Good Hip Internal Rotation Strength Grade 4 Good Knee Extension Strength Grade 4- Good- Knee Flexion Strength Grade 4 Good ROM Hip ROM Reason Not Measured Within Functional Limits Knee Extension Active Range of Motion ( -17 degrees) Knee Extension Passive Range of Motion ( -9 degrees) Knee Flexion Active Range of Motion ( 90 degrees) Knee Flexion Passive Range of Motion ( 98 degrees) Special Tests Knee Valgus Stress Test Negative Right Knee Varus Stress Test Negative Right Outpatient Therapy Assessment Impairments Problems/Impairmments Impaired Range of Motion, Im
--- NOTE | 2022-03-13 14:12 | HMH.RHREAS ---
Rehab Reassessment Rehab OP Re-assessment Start: 03/13/22 14:05 Freq: Status: Active Protocol: Document 03/12/22 09:21 VAL (Rec: 03/13/22 14:11 VAL [id number]) E-signed By Tomasz Sánchez, PT Rehab Re-assessment Subjective Subjective Patient reports 40% improvement since start of care. Objective Objective Notes AROM: - MMT: 4/5 grossly hip/thigh mm Pain: 2/10 currently; 5/10 at worst over past week Neuro: WNL Special tests: negative Assessment Progress Assessment Slower Than Expected Assessment Notes Biggest concern at this point is lack of prgression of AROM/ PROM. Patient would benefit from continuing with skilled PT services in order to address all functional limitations with all standing/ ambultory activities. Patient goals met STG's Goals Not Met LTG's Revised Goals NA Plan Plan Continue with current POC. Frequency of Therapy 2x/week Duration of therapy 4weeks Time and Billing Re-Eval Time 16 Re-Eval Billing Units 1 PHYSICIAN CERTIFICATION: I certify the specified therapy services for Dawna Thomas are required, authorized, and reviewed every 30 days.
== END 2022-04-16 11:05 | disposition home or self-care (01) ==
LOC: PT 11:00
PROVIDERS: PCP Emergency Medicine; Visit Provider Orthopaedic Surgery
DX: M25.561 Pain in right knee (principal); Z96.651 Presence of right artificial knee joint
CPT/HCPCS: 97010; 97110; 97140; 97163; 97164

== ENCOUNTER → 2022-04-25 14:13 | Outpatient (CLI) | payer MEDICARE, SELFPAY ==
[2022-04-25 15:00] LABS: Basophils # 0.1 K/mm3 (0-0.2); Basophils % 0.7 % (0.1-2.0); Eosinophils # 0.2 K/mm3 (0.0-0.4); Eosinophils % 1.9 % (0.1-12.0); Hematocrit 38.7 % (37.0-47.0); Hemoglobin 12.3 g/dL (12.2-16.2); Lymphocytes # 2.2 K/mm3 (0.7-4.5); Lymphocytes % 26.2 % (10-50); Mean Corpuscular HGB Conc 31.9 g/dL (31.8-35.4); Mean Corpuscular Hemoglobin 31.2 pg (27.0-31.2); Mean Corpuscular Volume 97.9 fl (81-99); Mean Platelet Volume 8.5 fl (7.4-10.4); Monocytes # 0.5 K/mm3 (0.1-1.0); Monocytes % 5.9 % (1.7-9.3); Neutrophils # 5.5 K/mm3 (1.8-7.8); Neutrophils % 65.3 % (37.0-80.0); Platelet Count 431 K/mm3 (142-424); Red Blood Count 3.95 M/mm3 (4.20-5.40); Red Cell Distribution Width 14.6 % (11.5-17.5); White Blood Count 8.5 K/mm3 (4.8-10.8)
[2022-04-25 15:29] LABS: Anion Gap 10.2 mEq/L (5-15); Blood Urea Nitrogen 14 mg/dl (7-17); Calcium 8.7 mg/dl (8.4-10.2); Carbon Dioxide 32 mmol/L (22.0-30.0); Chloride 103 mmol/L (98-107); Estimated Glomerular Filt Rate 83 ml/min (>60); GFR (African American) 101 ML/MIN (>60); Glucose 102 mg/dl (74-100); Potassium 4.2 mmoL/L (3.5-5.1); Sodium 141 mmol/L (136-145)
== END ==
PROVIDERS: PCP Emergency Medicine; Visit Provider Internal Medicine Cardiovascular Disease
DX: E78.5 Hyperlipidemia, unspecified (principal); I10 Essential (primary) hypertension; I73.9 Peripheral vascular disease, unspecified; R68.89 Other general symptoms and signs; R93.5 Abnormal findings on diagnostic imaging of other abdominal regions, including retroperitoneum
CPT/HCPCS: 36415; 80048; 85025

== ENCOUNTER 2022-04-26 08:46 | Day surgery (SDC) | payer MEDICARE, SELFPAY ==
[2022-04-26] VITALS (12 sets, daily range): BP systolic 154–168; BP diastolic 84–115; PULSE 63–85; RESP 16–20; O2SAT 95–100; BMI 28.0
--- NOTE | 2022-04-26 07:13 | IR_ITS ---
APPROVED REPORT Patient Location: Outpatient PROCEDURES Catheter placed in the abdominal aorta Abdominal aortography Repositioning the catheter in the abdominal aorta Bilateral iliofemoral runoff Intravascular lithotripsy to the left popliteal artery and left superficial femoral artery Drug-coated balloon angioplasty to the left superficial femoral artery and left popliteal artery INDICATION Layland claudication class III, Heavy calcification of the SFA and popliteal artery, Abnormal JOLLY Informed consent was obtained prior to the procedure. COMPLICATIONS NONE Estimated Blood Loss: LESS THAN 10 ML TECHNIQUE 1% lidocaine used anesthetize the right groin the right femoral artery was accessed via the Salinger technique and a 5 Kyrgyz sheath was placed in the right femoral artery. The pigtail catheter was advanced to the abdominal aorta and abdominal aortography was performed. The catheter was then repositioned and bilateral iliofemoral runoff was performed. Following this a long advantage wire was used to cannulate the left common iliac artery and then the wire was placed under fluoroscopic guidance into the distal popliteal artery. With this in place the 5 Kyrgyz sheath was exchanged for 45 cm destination 6 Kyrgyz sheath. Therapeutic heparin was administered giving a therapeutic ACT. A 4.5 x 40 mm lithotripsy shockwave balloon was used to predilate and reduce the heavy calcification of the left popliteal artery and left superficial femoral artery. A total of 300 impulses were delivered. Following this a 5 mm x 200 mm drug-coated balloon was deployed at 5 arden in the SFA and popliteal artery further reducing the stenosis to less than 10% throughout. At the end of the procedure after achieving excellent angiographic results the apparatus was removed the groin was reprepped closure change sheath was removed good hemostasis was achieved using Perclose device patient was transferred to the postop putting in stable condition ANGIOGRAPHIC RESULTS Suprarenal abdominal aorta is patent. The bilateral renal arteries are singular and patent. The infrarenal abdominal aorta is calcified with no focal stenosis greater than 10% Bilateral common iliac arteries are calcified but patent bilateral external and internal iliac arteries are calcified with minimal stenoses nothing greater than 20% and patent Bilateral common femoral arteries are patent Bilateral profunda femoris arteries are patent Right superficial femoral artery is patent in the proximal segment with diffuse 30% stenoses. At Rajiv's canal there is 6070 and 80% stenoses. Distal to the knee there is three-vessel runoff below the knee on the right side Left superficial femoral artery has proximal 50% calcified stenoses with extensive calcification at Rajiv's canal greater than 80 and 90% which extends into the popliteal artery. 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 Plavix 75 mg daily plus aspirin 81 mg daily 2. Continue medical management 3. LDL less than 55 to be achieved with high intensity statin 4. Consideration will be given to bring patient back to perform shockwave lithotripsy and drug-coated balloon to the right SFA popliteal artery. Prior to bringing patient back would like to further assess her claudication. If her claudication remains Fernando class II I would prefer medical management 5. Aggressive risk
[2022-04-26 11:51] LABS: CATHL Activated Clotting Time 254 SEC (74-125)
--- NOTE | 2022-04-26 14:32 | HMH.PHACL ---
PHA Inventory Analyst Discharge Med Armature Balancer: Dawna Thomas has received discharge medication counseling on the following medications: -ATORVASTATIN (ON PREVIOUSLY, NO QUESTIONS) -PLAVIX (ANTIPLATELET/BLOOD THINNER, BLEED/BRUISE RISK, BLEED LOCATION CHANGES APPEARANCE, BUMP HEAD = GO TO ER, RISK OF SOB). -LOSARTAN (ON PREVIOUSLY, NO QUESTIONS) -ASPIRIN (ON PREVIOUSLY, NO QUESTIONS)
== END 2022-04-26 14:49 | disposition home or self-care (01) ==
PROVIDERS: PCP Emergency Medicine; Visit Provider Internal Medicine
DX: I70.212 Atherosclerosis of native arteries of extremities with intermittent claudication, left leg (principal); E78.5 Hyperlipidemia, unspecified; I10 Essential (primary) hypertension; R68.89 Other general symptoms and signs; R93.5 Abnormal findings on diagnostic imaging of other abdominal regions, including retroperitoneum; I77.1 Stricture of artery
CPT/HCPCS: 36221; 75625; 85347; 99152; 99153; C1725; C1760; C1766; C1769; C1894; C9764; J1644; Q9966

== ENCOUNTER → 2022-04-30 15:31 | Outpatient (CLI) | payer MEDICARE, SELFPAY ==
--- NOTE | 2022-04-30 15:35 | XR_ITS ---
FINAL REPORT CLINICAL HISTORY: s/p rt knee replacement 3 months ago COMPARISON: 03/06/2022 FINDINGS: Right knee Three views were obtained. There is no acute fracture or dislocation. The patient is status post knee arthroplasty. There is anterior soft tissue swelling. Findings are stable from previous. There is a moderate joint effusion. IMPRESSION: Postsurgical changes, stable from previous. Moderate joint effusion. Reviewed, Interpreted and Dictated by David Sneed III, MD Transcribed by Chandrika Culver Authenticated and [facility]
== END ==
PROVIDERS: PCP Emergency Medicine; Visit Provider Orthopaedic Surgery
DX: Z96.651 Presence of right artificial knee joint (principal); M25.561 Pain in right knee
CPT/HCPCS: 73562

== ENCOUNTER → 2022-08-15 12:14 | Outpatient (CLI) | payer MEDICARE, SELFPAY ==
--- NOTE | 2022-08-15 12:30 | NM_ITS ---
APPROVED REPORT Exam: Nuclear Stress Test Indication: HX PA, HTN, HYPERLIPIDEMIA, EX SMOKER, FM HX, C.P., SOB Patient Location: Outpatient Stress Tech: Ngozi Whitten [place] Tech:Natasha Mcguire, EMY RT(R)(N) Ht: 5 ft 2 in Wt: 154 lbs Bra Size: C HR: 59 bpm BP: 172/68 mmHg BSA: 1.71 m2 TID: 1.36 BMI: 28.1 History: HX PA, HTN, HYPERLIPIDEMIA, EX SMOKER, FM HX, C.P., SOB Procedure: Patient received 0.4 mg of intravenous Lexiscan, resting heart rate 59 bpm, resting blood pressure 172/68 mmHg, with Lexiscan maximum heart rate achieved was 81 bpm which is 54 % of the maximum predicted heart rate and blood pressure was 172/68 mmHg. With Lexiscan, patient denied any complaint of chest pain. Cardiac Stress and Resting SPECT Images: Cardiac Stress and Resting SPECT images were obtained using technetium 99m Myoview 32.9 mCi stress and 9.91 mCi at rest. Resting and stress images demonstrate a small fixed anterior and anteroseptal perfusion defect that is no longer visualized with prone positioning. Findings are most suggestive of breast attenuation. Gated imaging demonstrates a normal LV systolic global and regional function. LVEF is calculated at 63% Conclusion: Breast attenuation is present. Resting and stress imaging in both supine and prone positioning demonstrate no reversible ischemia. Gated imaging demonstrates a normal LV systolic global and regional function. LVEF is calculated at 63% Compared to prior study from 2019, there are no significant changes. Electronically signed by : Kaur Viera, 08/15/2022 21:50:12
--- NOTE | 2022-08-15 13:44 | CA_ITS ---
APPROVED REPORT Exam: Pharmacologic Technologist: Ngozi Alvarez, Ht: 5 ft 2 in Wt: 154 lbs BSA: 1.71 m2 HR: 54 bpm BP: 172/68 mmHg Medical History Medications: Amlodipine,,,,, Levothyroxine,,,,, Aspirin,,,,, Gabapentin,,,,, Vitamin B12,,,,, Losartan,,,,, Allopurinol,,,,, Nexium,,,,, Plavix,,,,, Baclofen,,,,, Fluoxetine,,,,, BiOTIN,,,,, Stress Test Details Test: LEXISCAN Reason for pharmacologic stress test: physical limitation. HR Resting HR: 59 bpm Max Heart Rate (APMHR): 151 bpm Max HR Achieved: 81 bpm Target HR (85% APMHR): 128 bpm % of APMHR: 54 Recovery HR: 70 bpm BP Resting BP: 172/68 mmHg Max BP: 172/68 mmHg Recovery BP: 140.0/62.0 mmHg ECG Resting ECG: Sinus florence Clinical Exercise duration: 04:00 min Highest Stage Achieved: Stress ECG Conclusion Symptoms: mild stomach discomfort. No CP. Arrhythmias/Ectopy: None. ST-T Changes: No significant changes. Conclusion: Unremarkable Lexiscan stress. Myoview images reported separately. Test Summary REST . . . . . . . Resting REST 03:43 . . 59 . 172/ 68 . . Stage 1 01:00 . . 77 . . . . Stage 2 01:00 . . 78 . 156/ 67 . . Stage 3 01:00 . . 74 . 147/ 61 . . Stage 4 01:00 . . 73 . 145/ 65 . Stop exercise at 04:00 RECOVERY 01:00 . . 68 . 145/ 61 . . RECOVERY 02:00 . . 69 . 147/ 60 . . RECOVERY 03:00 . . 72 . 147/ 60 . . RECOVERY 03:33 . . 71 . 140/ 62 . . Electronically signed by : Kaur Viera, 08/15/2022 21:31:32
== END ==
PROVIDERS: PCP Emergency Medicine; Visit Provider Nurse Practitioner
DX: E78.5 Hyperlipidemia, unspecified (principal); G47.33 Obstructive sleep apnea (adult) (pediatric); I10 Essential (primary) hypertension; I73.9 Peripheral vascular disease, unspecified; R07.89 Other chest pain; R93.5 Abnormal findings on diagnostic imaging of other abdominal regions, including retroperitoneum
CPT/HCPCS: 78452; 93017; A9502; J2785

== ENCOUNTER → 2022-08-23 11:04 | Outpatient (CLI) | payer MEDICARE, SELFPAY | PROVIDERS: PCP Emergency Medicine; Visit Provider Nurse Practitioner | DX: E78.5 Hyperlipidemia, unspecified (principal); G47.33 Obstructive sleep apnea (adult) (pediatric); I10 Essential (primary) hypertension; I73.9 Peripheral vascular disease, unspecified; R07.89 Other chest pain; R93.5 Abnormal findings on diagnostic imaging of other abdominal regions, including retroperitoneum; Z98.890 Other specified postprocedural states; R06.09 Other forms of dyspnea | CPT/HCPCS: 93306 ==

== ENCOUNTER → 2022-09-05 11:37 | Outpatient (CLI) | payer MEDICARE, SELFPAY ==
[2022-09-05 12:56] LABS: Alanine Aminotransferase 21 U/L (12-78); Albumin Level 4.1 g/dl (3.5-5.0); Alkaline Phosphatase 91 U/L (38-126); Anion Gap 13.1 mEq/L (5-15); Aspartate Amino Transferase 27 U/L (14-36); Bilirubin,Indirect 0.3 mg/dL (0.0-0.9); Bilirubin,Total 0.3 mg/dl (0.2-1.3); Bilirubin,Unconjugated 0.4 mg/dL (0.0-1.1); Blood Urea Nitrogen 14 mg/dl (7-17); Calcium 8.7 mg/dl (8.4-10.2); Carbon Dioxide 30 mmol/L (22.0-30.0); Chloride 103 mmol/L (98-107); Chol/HDL Ratio 3.2 (1-3.5); Cholesterol 157 mg/dl (140-200); Estimated Glomerular Filt Rate 99 ml/min (>60); GFR (African American) 120 ML/MIN (>60); Glucose 92 mg/dl (74-100); HDL Cholesterol 49 mg/dl (40-60); Potassium 4.1 mmoL/L (3.5-5.1); Sodium 142 mmol/L (136-145); Total Protein,Serum 6.5 g/dl (6.3-8.2); Triglycerides 152 mg/dl (30-150); VLDL Cholesterol 30 mg/dL (0-40)
[2022-09-05 13:07] LABS: Direct LDL Cholesterol 75.69 mg/dL (100-129)
== END ==
PROVIDERS: Nurse Practitioner; PCP Emergency Medicine; Visit Provider Internal Medicine Cardiovascular Disease
DX: E78.5 Hyperlipidemia, unspecified (principal); I10 Essential (primary) hypertension
CPT/HCPCS: 36415; 80048; 80061; 80076

== ENCOUNTER → 2022-10-15 18:49 | Outpatient (CLI) | payer MEDICARE, SELFPAY ==
[2022-10-15 13:24] LABS: Basophils % 0.4 % (0.1-2.0); Eosinophils # 0.2 K/mm3 (0.0-0.4); Eosinophils % 2.8 % (0.1-12.0); Hematocrit 38.9 % (37.0-47.0); Hemoglobin 12.2 g/dL (12.2-16.2); Lymphocytes # 1.4 K/mm3 (0.7-4.5); Lymphocytes % 23.2 % (10-50); Mean Corpuscular HGB Conc 31.4 g/dL (31.8-35.4); Mean Corpuscular Hemoglobin 31.3 pg (27.0-31.2); Mean Corpuscular Volume 99.7 fl (81-99); Mean Platelet Volume 9.1 fl (7.4-10.4); Monocytes # 0.4 K/mm3 (0.1-1.0); Monocytes % 7.3 % (1.7-9.3); Neutrophils % 66.4 % (37.0-80.0); Platelet Count 327 K/mm3 (142-424); Red Blood Count 3.91 M/mm3 (4.20-5.40); Red Cell Distribution Width 14.2 % (11.5-17.5); White Blood Count 6.1 K/mm3 (4.8-10.8)
[2022-10-15 13:43] LABS: Alanine Aminotransferase 17 U/L (12-78); Albumin Level 4.2 g/dl (3.5-5.0); Albumin/Globulin Ratio 1.7 (1.1-1.8); Alkaline Phosphatase 97 U/L (38-126); Anion Gap 11.2 mEq/L (5-15); Aspartate Amino Transferase 24 U/L (14-36); Bilirubin,Total 0.2 mg/dl (0.2-1.3); Blood Urea Nitrogen 16 mg/dl (7-17); Calcium 8.8 mg/dl (8.4-10.2); Carbon Dioxide 29 mmol/L (22.0-30.0); Chloride 105 mmol/L (98-107); Chol/HDL Ratio 3.5 (1-3.5); Cholesterol 152 mg/dl (140-200); Estimated Glomerular Filt Rate 83 ml/min (>60); GFR (African American) 100 ML/MIN (>60); Globulin 2.5 g/dL (1.3-3.2); Glucose 79 mg/dl (74-100); HDL Cholesterol 43 mg/dl (40-60); Potassium 4.2 mmoL/L (3.5-5.1); Sodium 141 mmol/L (136-145); Total Protein,Serum 6.7 g/dl (6.3-8.2); Triglycerides 142 mg/dl (30-150); VLDL Cholesterol 28 mg/dL (0-40)
[2022-10-15 13:47] LABS: Free T4 (Free Thyroxine) 1.21 ng/dl (0.78-2.19)
[2022-10-15 14:00] LABS: T4 (Thyroxine) 8.9 ug/dl (5.53-11.0)
[2022-10-15 14:05] LABS: Hemoglobin A1C 5.5 % (4.0-6.0)
[2022-10-15 14:13] LABS: Thyroid Stimulating Hormone 0.13 uIU/mL (0.465-4.68)
[2022-10-15 14:33] LABS: Vitamin B12 > 1000 pg/mL (239-931)
== END ==
PROVIDERS: PCP Emergency Medicine; Visit Provider Emergency Medicine
DX: E78.5 Hyperlipidemia, unspecified (principal); I10 Essential (primary) hypertension; E03.9 Hypothyroidism, unspecified; E66.3 Overweight; Z79.899 Other long term (current) drug therapy
CPT/HCPCS: 80053; 80061; 82607; 83036; 84436; 84439; 84443; 85025

== ENCOUNTER → 2022-11-20 10:55 | Outpatient (CLI) | payer MEDICARE, SELFPAY ==
--- NOTE | 2022-11-20 10:55 | US_ITS ---
FINAL REPORT TECHNIQUE: Limited sonographic images of the thyroid were obtained. CLINICAL HISTORY: Thyroid disorder COMPARISON: 12/12/2020 FINDINGS: The right lobe is surgically absent. The left lobe of the thyroid measures 2.9 x 1.4 x 1.5 cm. There are multiple nodules in the left lobe. There is an ovoid, solid mildly hyperechoic mass in the mid left lobe measuring 1.5 x 1.1 cm consistent with TI-RADS category 3. Multiple small hypoechoic nodules are seen measuring 7 mm or less consistent with TI-RADS category 4. The isthmus measures 0.24 cm. IMPRESSION: Left thyroid lobe nodules. Recommend 1 year follow-up with attention to the dominant nodule. Reviewed, Interpreted and Dictated by Mike Stapleton MD Transcribed by Chandrika Culver Authenticated and [facility]
[2022-11-20 13:17] LABS: Free T4 (Free Thyroxine) 0.87 ng/dl (0.78-2.19)
[2022-11-20 13:32] LABS: Thyroid Stimulating Hormone < 0.02 uIU/mL (0.465-4.68)
== END ==
PROVIDERS: PCP Emergency Medicine; Visit Provider Nurse Practitioner
DX: E03.9 Hypothyroidism, unspecified (principal); E78.5 Hyperlipidemia, unspecified
CPT/HCPCS: 36415; 76536; 84439; 84443

== ENCOUNTER → 2022-12-31 15:17 | Outpatient (CLI) | payer MEDICARE, SELFPAY ==
--- NOTE | 2022-12-31 15:21 | XR_ITS ---
FINAL REPORT CLINICAL HISTORY: right tka x 1 year ago no known trauma FINDINGS: 3 views of the right knee were obtained. There is no acute fracture or dislocation. There is postoperative changes from total knee arthroplasty. There is no soft tissue abnormality. IMPRESSION: No acute process. Reviewed, Interpreted and Dictated by David Sneed III, MD Transcribed by Colt Jason Authenticated and [facility] [place] [place]
== END ==
PROVIDERS: PCP Emergency Medicine; Visit Provider Orthopaedic Surgery
DX: M25.561 Pain in right knee (principal)
CPT/HCPCS: 73562

== ENCOUNTER → 2023-02-18 08:16 | Outpatient (CLI) | payer MEDICARE, SELFPAY ==
[2023-02-18 19:16] LABS: Adenovirus,PCR Not Detected (NotDetected); Bordetella Pertussis Not Detected (NotDetected); Chlamydophila Pneumoniae, PCR Not Detected (NotDetected); Coronavirus 19, PCR Not Detected (NotDetected); Coronavirus 229E Not Detected (NotDetected); Coronavirus NL63 Not Detected (NotDetected); Coronovirus HKU1,PCR Not Detected (NotDetected); Human Metapneumovirus Not Detected (NotDetected); Influenza A, PCR Not Detected (NotDetected); Influenza AH1, 2009 Not Detected (NotDetected); Influenza AH1, PCR Not Detected (NotDetected); Influenza AH3,PCR Not Detected (NotDetected); Influenza B, PCR Not Detected (NotDetected); Mycoplasma Pneumoniae, PCR Not Detected (NotDetected); Parainfluenza 1, PCR Not Detected (NotDetected); Parainfluenza 2, PCR Not Detected (NotDetected); Parainfluenza 3, PCR Not Detected (NotDetected); Parainfluenza 4, PCR Not Detected (NotDetected); Respiratory Syncytial Virus Not Detected (NotDetected); Rhinovirus/Enterovirus Not Detected (NotDetected)
[2023-02-18 20:56] LABS: Thyroid Stimulating Hormone 0.06 uIU/mL (0.465-4.68)
[2023-02-19 08:39] LABS: Coronavirus OC43 Detected (NotDetected)
== END ==
PROVIDERS: PCP Internal Medicine; Visit Provider Internal Medicine
DX: E03.9 Hypothyroidism, unspecified (principal); I10 Essential (primary) hypertension; U07.1 COVID-19; R05.9 Cough, unspecified; R06.02 Shortness of breath; R53.83 Other fatigue; Z20.822 Contact with and (suspected) exposure to COVID-19
CPT/HCPCS: 84443; 87581; 87632; 87635; 87798

== ENCOUNTER → 2023-02-26 12:58 | Outpatient (CLI) | payer MEDICARE, SELFPAY ==
[2023-02-26 14:10] LABS: Thyroid Stimulating Hormone 0.16 uIU/mL (0.465-4.68)
== END ==
PROVIDERS: PCP Internal Medicine; Visit Provider Nurse Practitioner
DX: E89.0 Postprocedural hypothyroidism (principal)
CPT/HCPCS: 36415; 84439; 84443

== ENCOUNTER → 2023-03-19 15:51 | Outpatient (CLI) | payer MEDICARE, SELFPAY ==
--- NOTE | 2023-03-19 15:55 | XR_ITS ---
FINAL REPORT CLINICAL HISTORY: right shoulder pain FINDINGS: Right shoulder Three views were obtained. There is no acute fracture or dislocation. There are mild hypertrophic changes of the AC joint. There is scar or atelectasis at the right base. No soft tissue abnormality is identified. IMPRESSION: No acute process. Reviewed, Interpreted and Dictated by Mike Stapleton MD Transcribed by Chandrika Culver Authenticated and [facility]
== END ==
PROVIDERS: PCP Family Medicine; Visit Provider Family Medicine
DX: M25.511 Pain in right shoulder (principal)
CPT/HCPCS: 73030

== ENCOUNTER 2023-05-27 10:02 | Outpatient (CLI) | payer MEDICARE, SELFPAY ==
[2023-05-27 11:33] LABS: Thyroid Stimulating Hormone 0.02 uIU/mL (0.465-4.68)
[2023-05-27 19:35] LABS: Creatinine,Urine Random 28 mg/dL (Not Estab.); Microalbumin < 6.000 mg/L (0-16.7)
== END 2023-05-27 23:59 ==
LOC: LAB 10:03
PROVIDERS: PCP Internal Medicine; Visit Provider Nurse Practitioner
DX: E78.5 Hyperlipidemia, unspecified; E03.8 Other specified hypothyroidism
CPT/HCPCS: 36415; 82043; 82570; 84439; 84443

== ENCOUNTER 2023-05-29 22:31 | Outpatient (CLI) | payer MEDICARE, SELFPAY ==
[2023-05-29 18:39] LABS: Basophils % 0.6 % (0.1-2.0); Eosinophils # 0.1 K/mm3 (0.0-0.4); Eosinophils % 2.2 % (0.1-12.0); Hematocrit 42.1 % (37.0-47.0); Hemoglobin 13.5 g/dL (12.2-16.2); Lymphocytes # 1.6 K/mm3 (0.7-4.5); Lymphocytes % 25.1 % (10-50); Mean Corpuscular HGB Conc 31.9 g/dL (31.8-35.4); Mean Corpuscular Volume 106.5 fl (81-99); Mean Platelet Volume 9.6 fl (7.4-10.4); Monocytes # 0.5 K/mm3 (0.1-1.0); Monocytes % 7.7 % (1.7-9.3); Neutrophils # 4.1 K/mm3 (1.8-7.8); Neutrophils % 64.4 % (37.0-80.0); Platelet Count 339 K/mm3 (142-424); Red Blood Count 3.96 M/mm3 (4.20-5.40); Red Cell Distribution Width 13.8 % (11.5-17.5); White Blood Count 6.3 K/mm3 (4.8-10.8)
== END 2023-05-29 23:59 ==
LOC: LAB.DROPOF 22:32
PROVIDERS: Internal Medicine; PCP Nurse Practitioner; Visit Provider Nurse Practitioner
DX: R53.83 Other fatigue (principal); I10 Essential (primary) hypertension; E78.5 Hyperlipidemia, unspecified; Z79.899 Other long term (current) drug therapy
CPT/HCPCS: 85025

== ENCOUNTER 2023-07-11 10:21 | Outpatient (CLI) | payer MEDICARE, SELFPAY ==
--- NOTE | 2023-07-11 10:24 | XR_ITS ---
FINAL REPORT CLINICAL HISTORY: left wrist pain no injury COMPARISON: 05/15/2021 FINDINGS: AP, oblique, and lateral views of the left wrist were obtained. There is no acute fracture or dislocation. Moderate degenerative change is noted in the left wrist predominantly in the radial aspect. There is a 4 mm loose body adjacent to the first CMC joint, which is stable when compared to the prior exam. The soft tissues are otherwise normal. IMPRESSION: No acute osseous abnormality of the left wrist. Moderate degenerative change primarily involving the radial aspect of the wrist, with a 4 mm loose body adjacent to the first CMC joint which is stable. Reviewed, Interpreted and Dictated by David Sneed III, MD Transcribed by Anny Flores Authenticated and [facility]
--- NOTE | 2023-07-11 10:24 | XR_ITS ---
FINAL REPORT CLINICAL HISTORY: left hand pain no known injury COMPARISON: None FINDINGS: LEFT HAND: 3 views of the left hand were obtained. There is no acute fracture or dislocation. There is chronic deformity of the fifth metacarpal, likely a chronic fracture. Mild and moderate degenerative change are noted in the hand. Visualized joint spaces are normally aligned. Soft tissues are unremarkable. IMPRESSION: No acute bony abnormality. Mild and moderate degenerative change, with chronic deformity of the fifth metacarpal, likely a chronic fracture. Reviewed, Interpreted and Dictated by David Sneed III, MD Transcribed by Anny Flores Authenticated and [facility]
[2023-07-11 11:52] LABS: Alanine Aminotransferase 16 U/L (12-78); Albumin Level 3.9 g/dl (3.5-5.0); Albumin/Globulin Ratio 1.3 (1.1-1.8); Alkaline Phosphatase 82 U/L (38-126); Anion Gap 11.2 mEq/L (5-15); Aspartate Amino Transferase 23 U/L (14-36); Bilirubin,Total 0.4 mg/dl (0.2-1.3); Blood Urea Nitrogen 11 mg/dl (7-17); Carbon Dioxide 27 mmol/L (22.0-30.0); Chloride 105 mmol/L (98-107); Estimated Glomerular Filt Rate 99 ml/min (>60); GFR (African American) 120 ML/MIN (>60); Globulin 2.9 g/dL (1.3-3.2); Glucose 94 mg/dl (74-100); Potassium 4.2 mmoL/L (3.5-5.1); Sodium 139 mmol/L (136-145); Total Protein,Serum 6.8 g/dl (6.3-8.2); Uric Acid 2.3 mg/dl (2.5-6.2)
[2023-07-11 12:09] LABS: 25-OH Vitamin D, Total 48.1 ng/mL (30-100)
[2023-07-11 12:23] LABS: Hemoglobin A1C 5.7 % (4.0-6.0)
== END 2023-07-11 23:59 | disposition home or self-care (01) ==
LOC: LAB 10:22
PROVIDERS: PCP Internal Medicine; Visit Provider Family Medicine
DX: M25.532 Pain in left wrist (principal); R73.09 Other abnormal glucose; M85.80 Other specified disorders of bone density and structure, unspecified site; M10.9 Gout, unspecified; M79.642 Pain in left hand; Z79.899 Other long term (current) drug therapy
CPT/HCPCS: 36415; 73110; 73130; 80053; 82306; 83036; 84550

== ENCOUNTER 2023-07-22 21:24 | Outpatient (CLI) | payer MEDICARE, SELFPAY ==
[2023-07-22 22:10] LABS: Hemoglobin A1C 5.6 % (4.0-6.0)
[2023-07-22 22:19] LABS: Thyroid Stimulating Hormone < 0.02 uIU/mL (0.465-4.68)
[2023-07-22 22:21] LABS: Creatinine,Urine Random 19 mg/dL (Not Estab.)
[2023-07-22 22:27] LABS: Microalbumin < 6.000 mg/L (0-16.7)
== END 2023-07-22 23:59 | disposition home or self-care (01) ==
PROVIDERS: PCP Internal Medicine; Visit Provider Internal Medicine
DX: R73.09 Other abnormal glucose (principal); R53.83 Other fatigue; E05.90 Thyrotoxicosis, unspecified without thyrotoxic crisis or storm; M10.9 Gout, unspecified; G89.29 Other chronic pain; Z79.899 Other long term (current) drug therapy
CPT/HCPCS: 82043; 82570; 83036; 84443

== ENCOUNTER 2023-08-05 08:13 | Outpatient (CLI) | payer MEDICARE, SELFPAY ==
--- NOTE | 2023-08-05 08:14 | MM_ITS ---
PROCEDURE INFORMATION: Exam: MG Bilateral Screening 3D Mammography Exam date and time: 08/05/2023 8:08 AM Age: 68 years old Clinical indication: Screening examination; Additional info: Screening for breast cancer . Family history of daughter with premenopausal breast carcinoma at age 38. Personal history of thyroid carcinoma. TECHNIQUE: Imaging protocol: Bilateral Screening tomosynthesis and 2D mammography including computer-aided detection (CAD) when performed. COMPARISON: 1. MG MM DIG SCREENING MAMM BI W/CAD 08/23/2021 3:30 PM 2. MG MM DIG SCREENING MAMM BI W/CAD 08/29/2020 9:33 AM 3. MG MM DIG SCREENING MAMM BI W/CAD 05/21/2019 10:33 AM FINDINGS: MAMMOGRAPHY: Breast composition: There are scattered areas of fibroglandular density. Mass: No suspicious masses. Architectural distortion: No suspicious distortion. Calcifications: No suspicious calcifications. Asymmetric density: None. Skin thickening: None. Axillary adenopathy: None. IMPRESSION: 1. No mammographic evidence of malignancy. Annual screening is recommended unless otherwise clinically indicated. 2. Given the reported risk factors for this patient, a breast cancer risk assessment may prove useful for further evaluation. ASSESSMENT: BI-RADS Category 1: Negative
== END 2023-08-05 23:59 | disposition home or self-care (01) ==
LOC: RAD 08:14
PROVIDERS: PCP Internal Medicine; Visit Provider Internal Medicine
DX: Z12.31 Encounter for screening mammogram for malignant neoplasm of breast (principal)
CPT/HCPCS: 77063; 77067

== ENCOUNTER 2023-08-07 15:49 | Outpatient (CLI) | payer MEDICARE, SELFPAY ==
[2023-08-07 19:40] LABS: T4 (Thyroxine) 6.2 ug/dl (5.53-11.0); Triiodothryronine (T3) Uptake 32 % (23.5-40.5)
[2023-08-07 19:54] LABS: Thyroid Stimulating Hormone 1.97 uIU/mL (0.465-4.68)
== END 2023-08-07 23:59 | disposition home or self-care (01) ==
LOC: LAB.DROPOF 08-08 15:49
PROVIDERS: PCP Internal Medicine; Visit Provider Internal Medicine
DX: E04.1 Nontoxic single thyroid nodule (principal)
CPT/HCPCS: 84436; 84443; 84479

== ENCOUNTER 2023-08-11 10:02 | Outpatient (POV) | payer MEDICARE, SELFPAY ==
[2023-08-11 10:34] VITALS: BP 140/78; PULSE 88; RESP 18; O2SAT 98; BMI 33.5
--- NOTE | 2023-08-11 11:05 | EXP.PAIN.OV ---
HPI Data of Consult Patient: new to practice Consult date: 08/11/23 Requesting Physician: Kiera Reyes APRN Primary Care Provider: Jonas Lua DO Consult Narrative Reason for consult: Low back pain, hip pain, knee pain History of present illness: Ms. Thomas is a 68 year old female who presents today as a new patient. She is a referral from Dr. Ferguson's office. She rates her pain today a 6 out of 10. Patient states her pain is throughout her back as well as her hips and knee. Patient states this been going on for years and progressively worsened over time. She does describe it as an aching, throbbing sensation with some numbness and tingling. She states the pain does interfere with her ability to perform activities of daily living such as cooking and cleaning. Patient does state that she did in the past have a back fusion surgery with rods and cage. Patient states it was done by provider in [place] and she does not remember his name exactly. Patient states prior to this surgery she did have some injections however did not really feel like they were beneficial. Patient states she has tried [id number] Tylenol and ibuprofen along with heat and ice and topicals with minimal relief. Patient has continued at home exercising and stretching for longer than 6 weeks with minimal relief. Patient states she is interested in her options as well as possible additional injection therapy. Patient does use a cane for help with ambulation. She is prescribed gabapentin and baclofen from her PCP and states that this does help. Her Benjamin has been reviewed and is appropriate. CC: Kiera Reyes APRN [facility] Disclaimer: The information contained in this section may have been updated after the patient was seen, as this information can be updated by other users. Medical History (Updated 08/11/23 @ 11:08 by Kiera Reyes APRN) Body mass index (BMI) of 25.0 to 29.9 Chronic low back pain without sciatica Depression Dystrophia unguium Gastroesophageal reflux disease Goiter Hyperlipidemia Hypertension Incurvated nail Keratosis Low back pain Onychomycosis Overweight with body mass index (BMI) 25.0-29.9 Thyroid Nodule Abnormal ankle brachial index (JOLLY) Carpal tunnel syndrome on both sides Sleep apnea History of gastroesophageal reflux (GERD) Thyroid cancer Ex-smoker Daytime somnolence Snoring Dyspnea Chest pain Surgical History Status post partial thyroidectomy History of hysterectomy History of cholecystectomy History of back surgery History of left hip replacement Family History Other Family history of cancer Family history of hypertension Family history of myocardial infarction Family history of stroke No significant family history Social History Smoking Status: Former smoker alcohol intake: never substance use type: denies use current occupational status: other Travel in the last 8 weeks: None household members: family housing: house caffeine: Yes Review of Systems Review of Systems Review of systems:: pertinent systems reviewed and negative unless documented below Review of systems (narrative): Review of Systems: General: No recent weight changes, no fever, no sleep disturbances Respiratory: No cough, no shortness of air, no recurring pulmonary infections Cardiovascular/peripheral vascular: No chest pain, no palpitations, no edema, no shortness of breath Gastrointestinal: No new onset incontinence, normal bowel movements reported Genitourinary: No new onset incontinence Musculoskeletal: Low back pain, hip pain, knee pain Psychiatric: [Normal mood/affect] Neurological: [Denies weakness in extremities], [denies balance issues] Meds Home Medications and Allergies Home Medications Medication Instructions Recorded Confirmed Type biotin 1,000 mcg chewable tablet 1,000 mcg PO DAILY Supplement 04/10/17 08/11/23 History cyanocobalamin (vitamin B-12) 100 100 mcg PO DAILY Supplement 04/10/17 08/11/23 History mcg tablet (Vitamin B-12) esomeprazole magnesium 40 mg 20 mg PO DAILY GERD 04/06/21 08/11/23 History capsule,delayed release (Nexium) calcium carbonate 500 mg-vitamin 500 mg PO BID Supplement 01/04/22 08/11/23 History D3 5 mcg (200 unit) tablet aspirin 325 mg tablet 325 mg PO DAILY VTE PROPHYLAXIS 01/08/22 08/11/23 History furosemide 20 mg tablet See Rx Instructions .Route 05/05/23 08/11/23 Rx .COMPLEX #180 tabs clopidogrel 75 mg tablet See Rx Instructions .Route 05/15/23 08/11/23 Rx .COMPLEX #90 tabs gabapentin 600 mg tablet 600 mg PO TID Pain #90 tabs 05/29/23 08/11/23 Rx levothyroxine 25 mcg tablet 25 mcg PO DAILY Hypothyroidism #90 06/24/23 08/11/23 Rx tabs allopurinol 300 mg tablet See Rx Instructions .Route 06/27/23 08/11/23 Rx .COMPLEX #90 tabs alendronate 70 mg tablet See Rx Instructions .Route 06/30/23 08/11/23 Rx .COMPLEX #12 tabs baclofen 20 mg tablet See Rx Instructions .Route 07/04/23 08/11/23 Rx .COMPLEX #270 tabs potassium chloride 10 mEq See Rx Instructions .Route 07/04/23 08/11/23 Rx capsule,extended release .COMPLEX #90 caps amlodipine 5 mg tablet See Rx Instructions .Route 07/15/23 08/11/23 Rx .COMPLEX #90 tabs fluoxetine 20 mg capsule See Rx Instructions .Route 07/29/23 08/11/23 Rx .COMPLEX #90 caps losartan 100 mg tablet 100 mg PO DAILY Hypertension #90 08/07/23 08/11/23 Rx tabs atorvastatin 40 mg tablet 40 mg PO DAILY #90 tabs 08/13/23 Rx New Prescriptions to Start Prescriptions: Allergies Allergy/AdvReac Type Severity Reaction Status Date / Time lisinopril AdvReac Severe cough Verified 07/24/23 13:45 Objective Vital signs: Pulse Resp BP Pulse Ox O2 Del Method 88 18 140/78 98 Room Air 08/11/23 10:34 08/11/23 10:34 08/11/23 10:34 08/11/23 10:34 08/11/23 10:34 Narrative: Physical Exam: General: Alert and oriented x3, no acute distress, pleasant and cooperative Lungs: Respirations even and unlabored, symmetrical chest expansion Eyes: PERRL Musculoskeletal: Flexion and extension of lumbar [spine] somewhat guarded secondary to pain, [antalgic gait noted] Neurological: Speech clear, no gross sensory deficit Additional findings Additional findings: FINDINGS: 6 views of the lumbar spine were obtained. There is no evidence of fracture or dislocation. Levoscoliosis is present. The patient has undergone fusion from L1-L3. Moderate and severe degenerative changes are present, with vacuum phenomenon present at the L3-4, L4-5, and L5-S1 levels. There is 12 mm of left lateral subluxation of L4 on L5. There is mild retrolisthesis of L3 on L4 and L4 on L5. Vascular calcifications are identified. IMPRESSION: Moderate and severe degenerative change as described, with prior fusion from L1-L3, vacuum phenomenon at multiple levels as well as retrolisthesis and subluxation. Reviewed, Interpreted and Dictated by David Sneed III, MD Transcribed by Anny Flores Authenticated and [facility] Assessment and Plan *Assessment and plan (1) Low back pain: Status: Acute Qualifiers: Back pain laterality: bilateral Chronicity: chronic Sciatica presence: without sciatica Qualified Code(s): M54.50 - Low back pain, unspecified; G89.29 - Other chronic pain Category: Medical Code(s): M54.50 - Low back pain, unspecified (2) Status post right knee replacement: Status: Acute Category: Surgical Code(s): Z96.651 - Presence of right artificial knee joint (3) Hip pain, chronic: Status: Acute Qualifiers: Laterality: right Qualified Code(s): M25.551 - Pain in right hip; G89.29 - Other chronic pain Category: Medical Code(s): M25.559 - Pain in unspecified hip; G89.29 - Other chronic pain (4) Right knee pain: Status: Acute Qualifiers: Chronicity: chronic Qualified Code(s): M25.561 - Pain in right knee; G89.29 - Other chronic pain Category: Medical Code(s): M25.561 - Pain in right knee Plan Patient is experiencing significant pain throughout her low back and radiating down into her legs. I have discussed with the patient due to not having any recent imaging it would be very beneficial for us to start by ordering x-ray as well as an MRI without contrast of her lumbar spine. Patient agrees with this plan of care. Patient does state that she would like open MRI for the advanced imaging. We will submit to insurance for these imaging and follow-up with her in 1 month for reevaluation of symptoms and plan of care. I have discussed with patient that she may benefit from additional injection therapy as well as possibly the intrathecal pain pump trial in the future. We will follow-up with this at later visits. Patient has been instructed to contact the clinic with any concerns before the next appointment. Dr. Menendez has reviewed this note and agrees with this plan of care. This note was dictated using voice recognition software and make contain errors or omissions.
--- NOTE | 2023-08-14 08:40 | XR_ITS ---
FINAL REPORT CLINICAL HISTORY: LUMBAR PAIN COMPARISON: None FINDINGS: 6 views of the lumbar spine were obtained. There is no evidence of fracture or dislocation. Levoscoliosis is present. The patient has undergone fusion from L1-L3. Moderate and severe degenerative changes are present, with vacuum phenomenon present at the L3-4, L4-5, and L5-S1 levels. There is 12 mm of left lateral subluxation of L4 on L5. There is mild retrolisthesis of L3 on L4 and L4 on L5. Vascular calcifications are identified. IMPRESSION: Moderate and severe degenerative change as described, with prior fusion from L1-L3, vacuum phenomenon at multiple levels as well as retrolisthesis and subluxation. Reviewed, Interpreted and Dictated by David Sneed III, MD Transcribed by Anny Flores Authenticated and [facility]
== END 2023-08-11 23:59 | disposition home or self-care (01) ==
LOC: SC.PAIN 10:03
PROVIDERS: PCP Internal Medicine; Visit Provider Nurse Practitioner Family
DX: M54.50 Low back pain, unspecified (principal); G89.29 Other chronic pain; Z96.651 Presence of right artificial knee joint; M25.551 Pain in right hip; M25.561 Pain in right knee
CPT/HCPCS: 72110; 99212; G0463

== ENCOUNTER 2023-08-14 08:28 | Outpatient (CLI) | payer MEDICARE, SELFPAY ==
--- NOTE | 2023-08-14 08:40 | XR_ITS ---
FINAL REPORT CLINICAL HISTORY: LUMBAR PAIN COMPARISON: None FINDINGS: 6 views of the lumbar spine were obtained. There is no evidence of fracture or dislocation. Levoscoliosis is present. The patient has undergone fusion from L1-L3. Moderate and severe degenerative changes are present, with vacuum phenomenon present at the L3-4, L4-5, and L5-S1 levels. There is 12 mm of left lateral subluxation of L4 on L5. There is mild retrolisthesis of L3 on L4 and L4 on L5. Vascular calcifications are identified. IMPRESSION: Moderate and severe degenerative change as described, with prior fusion from L1-L3, vacuum phenomenon at multiple levels as well as retrolisthesis and subluxation. Reviewed, Interpreted and Dictated by David Sneed III, MD Transcribed by Anny Flores Authenticated and . [facility]
== END 2023-08-14 23:59 | disposition home or self-care (01) ==
LOC: RAD 08:30
PROVIDERS: PCP Internal Medicine; Visit Provider Nurse Practitioner Family
DX: M54.50 Low back pain, unspecified (principal)
CPT/HCPCS: 72110

== ENCOUNTER 2023-09-10 08:27 | Outpatient (POV) | payer MEDICARE, SELFPAY ==
[2023-09-10 08:45] VITALS: BP 152/53; BP 166/61; PULSE 68; RESP 16; O2SAT 96; BMI 31.2
--- NOTE | 2023-09-10 08:57 | EXP.PAIN.SOA ---
[facility] Pain Management SOAP Note Subjective:: Patient is a pleasant 68-year-old female who presents today for MRI follow-up. Today she rates her pain a 6 out of 10. She denies any new trauma or injury. She states she continues to have pain throughout her low back that does radiate down her legs. She describes it as an aching, throbbing sensation with numbness and tingling. She does state the pain interferes with her ability to perform activities of daily living such as cooking and cleaning. Patient does have a history of prior back. Patient has tried and failed conservative treatment including continued at home exercising and stretching for longer than 6 weeks. Patient is currently prescribed gabapentin and baclofen from her PCP however states that it does not help. Her Benjamin has been reviewed and is appropriate. Review of Systems: General: No recent weight changes, no fever, no sleep disturbances Respiratory: No cough, no shortness of air, no recurring pulmonary infections Cardiovascular/peripheral vascular: No chest pain, no palpitations, no edema, no shortness of breath Gastrointestinal: No new onset incontinence, normal bowel movements reported Genitourinary: No new onset incontinence Musculoskeletal: Low back pain, leg pain Psychiatric: [Normal mood/affect] Neurological: [Denies weakness in extremities], [denies balance issues] Objective:: Physical Exam: General: Alert and oriented x3, no acute distress, pleasant and cooperative Lungs: Respirations even and unlabored, symmetrical chest expansion Eyes: PERRL Musculoskeletal: Flexion and extension of lumbar [spine] somewhat guarded secondary to pain, [antalgic gait noted] Neurological: Speech clear, no gross sensory deficit MRI lumbar spine without contrast September 05, 2023 Findings: Limitations: Surgical hardware spanning L1-L3 degrades regional osseous and soft tissue assessment. There are 5 lumbar-type vertebral bodies. Cord and epidural space: Spinal cord terminates at L1 and has normal signal. Nerve roots of cauda equina are normal in morphology. Vertebral column: Convex left curvature. Thoracolumbar kyphosis. Surgical changes L1-L3 interbody and posterior fusion with posterior decompression. Mild retrolisthesis at the canal junction at L3-L4 level. Disc desiccation with disc height loss and osteophyte formation at the and few segments with discogenic endplate change at L3-L4 and L4-L5 including Modic type I fibrovascular component which can be a source of axial back pain, this is present at a least her degree along the superior L1 endplate. The background bone marrow signal is normal without focal marrow replacing lesion. T12-L1: Mild disc height loss and asymmetric left disc bulge results in mild left foraminal stenosis. No canal or right foraminal stenosis. Mild to moderate facet arthrosis. L1-L2: Surgical level with interbody and posterior fusion and posterior decompression. No canal or foraminal stenosis. There is questionable fibrosis extending to the L1 nerve L2-L3: Surgical level with interbody and posterior fusion and posterior decompression. No canal stenosis. There is epidural fibrosis extending to the exiting L1 nerve L3-L4: Severe disc height loss and asymmetric right disc osteophyte complex results in moderate right foraminal stenosis with possible contact of the right L3 nerve at the extraforaminal zone and mild left foraminal stenosis. Mild spinal canal stenosis. Moderate facet arthrosis and facet hypertrophy. L4-L5: Severe disc height loss and asymmetric left disc osteophyte complex results in mild to moderate right and moderate left foraminal stenosis with possible contact of the left L4 nerve. There is mild spinal stenosis in the canal. Moderate advanced facet arthrosis and facet hypertrophy L5-S1: Moderate to severe disc height loss and asymmetric left disc osteophyte complex results in moderate left foraminal stenosis with contact of the left L5 nerve at the extraforaminal zone. No canal or significant right foraminal stenosis mild to moderate right and moderate advanced left facet arthrosis FINDINGS: 6 views of the lumbar spine were obtained. There is no evidence of fracture or dislocation. Levoscoliosis is present. The patient has undergone fusion from L1-L3. Moderate and severe degenerative changes are present, with vacuum phenomenon present at the L3-4, L4-5, and L5-S1 levels. There is 12 mm of left lateral subluxation of L4 on L5. There is mild retrolisthesis of L3 on L4 and L4 on L5. Vascular calcifications are identified. IMPRESSION: Moderate and severe degenerative change as described, with prior fusion from L1-L3, vacuum phenomenon at multiple levels as well as retrolisthesis and subluxation. Reviewed, Interpreted and Dictated by David Sneed III, MD Transcribed by Anny Flores Authenticated and [facility] Assessment:: Degenerative disc disease of lumbar spine with lumbar radiculopathy symptoms, lumbar facet arthropathy, prior lumbar fusion, lumbar spondylosis, nerve root impingement Plan:: Patient is experiencing worsening pain throughout her low back and legs with limited range of motion and positive leg raise. I have discussed with the patient that she may benefit from lumbar epidural steroid injection. Risk and benefits were discussed with patient and she would like to proceed forward with this plan of care. Patient has tried and failed conservative therapy. I have discussed with the patient that since she is on Plavix we will reach out to Dr. Marquez's office and confirm she can stop this medication prior to her injection. Patient was counseled if this is not a possibility we will have to reschedule her lumbar epidural. Patient is agreeable to this option. we will submit to insurance for the LESI L4-L5 under fluoroscopy. I will also order the patient a compounded cream. Patient has been instructed to contact the clinic with any concerns before the next appointment. Dr. Menendez has reviewed this note and agrees with this plan of care. This note was dictated using voice recognition software and make contain errors or omissions. [facility] Disclaimer: The information contained in this section may have been updated after the patient was seen, as this information can be updated by other users. Medical History (Updated 09/09/23 @ 09:45 by Magdalena Gibbons APRN) Abnormal electrocardiogram [ECG] [EKG] Dyspnea Body mass index (BMI) of 25.0 to 29.9 Chronic low back pain without sciatica Depression Dystrophia unguium Gastroesophageal reflux disease Goiter Hyperlipidemia Hypertension Incurvated nail Keratosis Low back pain Onychomycosis Overweight with body mass index (BMI) 25.0-29.9 Thyroid Nodule Abnormal ankle brachial index (JOLLY) Carpal tunnel syndrome on both sides Sleep apnea History of gastroesophageal reflux (GERD) Thyroid cancer Ex-smoker Daytime somnolence Snoring Chest pain Surgical History Status post partial thyroidectomy History of hysterectomy History of cholecystectomy History of back surgery History of left hip replacement Family History Other Family history of cancer Family history of hypertension Family history of myocardial infarction Family history of stroke No significant family history Social History Smoking Status: Former smoker alcohol intake: never substance use type: denies use current occupational status: other Travel in the last 8 weeks: None household members: family housing: house caffeine: Yes
== END 2023-09-10 23:59 | disposition home or self-care (01) ==
LOC: SC.PAIN 08:28
PROVIDERS: PCP Internal Medicine; Visit Provider Nurse Practitioner Family
DX: M51.16 Intervertebral disc disorders with radiculopathy, lumbar region (principal); M47.26 Other spondylosis with radiculopathy, lumbar region; M43.26 Fusion of spine, lumbar region
CPT/HCPCS: 99212; G0463

== ENCOUNTER 2023-09-12 14:52 | Outpatient (CLI) | payer MEDICARE, SELFPAY ==
[2023-09-12 15:19] LABS: Blood Urea Nitrogen 17 mg/dl (7-17); Estimated Glomerular Filt Rate 83 ml/min (>60); GFR (African American) 100 ML/MIN (>60)
== END 2023-09-12 23:59 | disposition home or self-care (01) ==
PROVIDERS: PCP Internal Medicine; Visit Provider Nurse Practitioner Family
DX: E78.5 Hyperlipidemia, unspecified (principal); R06.00 Dyspnea, unspecified; I10 Essential (primary) hypertension; Z87.891 Personal history of nicotine dependence
CPT/HCPCS: 36415; 82565; 84520

== ENCOUNTER 2023-09-24 11:54 | Outpatient (CLI) | payer MEDICARE, SELFPAY ==
--- NOTE | 2023-09-24 11:55 | CT_ITS ---
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 A noncontrast coronary calcium scan was performed. A CT attenuation threshold of 130 Hounsfield units (HU) was used for the detection of calcium in contiguous voxels of 1 sq mm in area to be counted as individual lesions. Bolus tracking in the ascending aorta with a threshold of 180 HU was performed. Immediately afterwards, ECG synchronized cardiac CT was then performed from the cardiac base to apex using retrospective gating with ECG tube current modulation. A total of 85 mL of Isovue 370 mg/mL contrast medium was administered at 5 mL/sec followed by a saline flush using a biphasic injection protocol. A tube voltage of 120 KVp was used. The patient received the following medications prior to the cardiac CT. 25 mg of oral metoprolol 0.8 mg of sublingual nitroglycerin The average heart rate at the time of acquisition was 56 bpm and regular. Image Reconstruction Transaxial images were reconstructed at 0.67 mm slide thickness. Data was reviewed interactively on an advanced workstation capable of 2 and 3-dimensional displays in all conventional reconstruction formats, including multiplanar reformations, maximum intensity projections, curved multiplanar reformations, and volume rendered reconstructions. When applicable, selected routine images describing the relevant coronary anatomy and pathology were saved and sent to PACS. Complications None Technical Quality Overall image quality was good. Coronary artery opacification was adequate. Total DLP (Dose-Length Product) is 1056.3 mGy-cm. The reported value represents the total of one or more individual components during the CT acquisition of this date and at this time, and as such, the same value may appear in more than one CT report depending on the interpreting/reporting physicians. COMPARISON None FINDINGS CT Coronary Calcium Scoring LMA (Left Main Artery) = 0 LAD (Left Anterior Descending) = 31 LCX (Left Coronary Circumflex) = 76 RCA (Right Coronary Artery) = 173 Total Calcium Score = 280 using the AJ-130 method. The observed calcium score of 280 is at 86th percentile for subjects of the same age, sex, and race/ethnicity. The interpretation of the calcium heart score is based on the following continuum*: 0 = no calcified plaque detected (risk of coronary artery disease is very low ??? less than 5%) 1-10 = calcium detected in extremely minimal levels (risk of coronary diseases is still low ??? less than 10%) 11-100 = mild levels of plaque detected with certainty (mild or minimal narrowing of heart arteries is likely) 101-400 = definite,at least moderate levels of plaque detected (relatively high risk of a heart attack within 3-5 years) >401-999 = extensive levels of plaque detected (high risk of heart attack, high levels of vascular disease are present, high likelihood of at least one significant coronary narrowing) *The calcium heart score quantifies the burden of coronary calcification/plaque in the coronary arteries. The calcium heart score is not able to evaluate the presence or burden of non-calcified (i.e. soft) plaque. There is also identifiable calcification in the aortic valve, mitral annulus, and the ascending and descending thoracic aorta. Coronary CT Angiography The coronary arterial system is right dominant. Quantitative Stenosis Grading: Left Main (LM): The left main originates normally from the left sinus of Valsalva. The LM gives off the left anterior descending artery and left circumflex artery. Left Anterior Descending (LAD) and Diagonal Branches: The LAD gives off 2 diagonal branch(es). There is mixed calcified/noncalcified plaque in the proximal and mid LAD segments, with up to 30-50% luminal stenosis. There is a [id number] bridge, measuring 10 mm in length and 2 mm in depth. 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 The LCx has a sharp angulation ostially and travels in a non-malignant course. The LCx gives off 1 Obtuse Marginal (OM) branch(es). There is mixed calcified/noncalcified plaque in the mid LCx segments with up to 50-70% luminal stenosis. Right Coronary Artery (RCA): The RCA originates normally from the right sinus of Valsalva. The RCA gives off a posterior descending artery (PDA) and posterolateral (PL) branches. There is mixed calcified/noncalcified plaque in the proximal LCx, with up to 70-90% luminal stenosis. Non-Coronary Cardiac Findings: Analysis of the left ventricular (LV) structure and function was performed after 3-D reconstruction of the LV from axial images, with user-corrected automatic contouring for assessment of LV volumes and user-defined reconstruction from oblique planes for measurement of 3-D cardiac structure and function. -The left ventricle systolic function is normal. -There is no left atrial appendage filling defect. Two right pulmonary veins and two left pulmonary veins drain normally into the left atrium. -No pericardial thickening or calcification. -Central and branch pulmonary arteries in the [id number] are unremarkable. -Thoracic aorta within the visualized thoracic aortic-branches in the [id number] is unremarkable. Extracardiac Structures No significant extra-cardiac findings. Note, however, that this study is focused on the cardiac findings. IMPRESSION -Presence of coronary calcification with an Agatston score = 280 using the AJ-130 method. -The observed calcium score of 280 is at 86th percentile for subjects of the same age, sex, and race/ethnicity. 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 -Multivessel atherosclerotic plaque, with possible evidence of significant flow-limiting atherosclerosis of the anomalous mid-LCx and the proximal RCA segments. -CAD-RADS 4A. Management recommendations per ACC/AHA guidelines*, as clinically appropriate. *Recommendations: CAD RADS 0: Reassurance. Consider non-atherosclerotic causes of chest pain. CAD RADS 1: Consider non-atherosclerotic causes of chest pain. Consider preventive therapy and risk factor modification. CAD RADS 2: Consider non-atherosclerotic causes of chest pain. Consider preventive therapy and risk factor modification, particularly for patients with nonobstructive plaque in multiple segments. CAD RADS 3: Consider further functional testing. Consider symptom-guided anti-ischemic and preventive pharmacotherapy as well as risk factor modification per published guideline statements. CAD RADS 4A: Consider further functional testing or invasive coronary angiography with revascularization per published guideline statements. Consider symptom-guided anti-ischemic and preventive pharmacotherapy as well as risk factor modification per published guideline statements. CAD RADS 4B: Invasive coronary angiography recommended with revascularization per published guideline statements. Consider symptom-guided anti-ischemic and preventive pharmacotherapy as well as risk factor modification per published guideline statements. CAD RADS 5: Consider invasive angiography and/or viability assessment with revascularization per published guideline statements. Consider symptom-guided anti-ischemic and preventive pharmacotherapy as well as risk factor modification per published guideline statements. CRITICAL RESULT None COMMUNICATION Per this written report The coronary and cardiac findings of this CCTA were reviewed, reported, and signed by Graham Viera MD (Clinical Nurse Reviewer) Conclusion Electronically signed by : Kaur Viera MD 09/29/2023 12:42:55
[2023-09-24 12:05] VITALS: BMI 31.2
[2023-09-24 12:15] VITALS: BP 143/74; PULSE 64; RESP 18; TEMP 36.6; O2SAT 93
[2023-09-24] MEDS: METOPROLOL TARTRATE 25MG TABLET 25 MG (12:17)
[2023-09-24] MEDS: NITROGLYCERIN 0.4MG SL TABLET 0.8 MG SL (12:52)
[2023-09-24] MEDS: IOPAMIDOL-370 (76%);100ML BOTTLE 85 ML IV (13:18)
[2023-09-24] MEDS: 0.9 % SODIUM CHLORIDE 50 ML VIAL IV (13:18)
[2023-09-24] MEDS: SODIUM CHLORIDE 0.9% 10ML SYR (RAD ONLY) 10 ML IV (13:18)
--- NOTE | 2023-09-24 13:26 | CA_ITS ---
APPROVED REPORT EXAM: Comprehensive 2D, Doppler, and color-flow Echocardiogram Dope Edger: Ioana Jimenez RVT Ht: 5 ft 2 in Wt: 160lbs BSA: 1.74 BP: 135/63 mmHg Indications: SOA,CP,HTN,HLD,FATIGUE 2D Dimensions LA Volume 75.90 mL LA Volume Index 43.62 mL/m2 (M/F) 16-34 M-Mode Dimensions RVDd 2.29 cm (0.9-2.6) LA Diam 3.87 cm (1.9-4.0) LVDd 4.69 cm (3.5-5.7) LVDs 2.86 cm (3.5-5.7) IVSd 1.04 cm (0.6-1.1) PWd 0.72 cm (0.6-1.1) EF (Teich) 69.50% FS 39.00% EDV (Teich) 101.90 mL TAPSE 2.26 (<1.7) ESV (Teich) 31.10 mL LV Diastology E Decel Time 170 (160-240 msec) E/A Ratio 0.9 Aortic Valve RE Index 1.06 cm2/m2 AoV Peak Soren. 153.0 (50-130 cm/s) AI PHT 559.00 ms AO Peak GR. 9.40 mmHg AO Mean GR. 5.30 (<5 mmHg) AO VTI 41.8 (18-25 cm) RE (VTI) 1.88 (2.5-4.5 cm2) Mitral Valve MV E Max Soren. 111.0 (40-130 cm/s) MV A Velocity 129.0 (40-130 cm/s) E/A Ratio 0.86 MV PHT 50.0 ms Pulmonary Valve PV Peak Velocity 69.0 (50-150 cm/s) Tricuspid Valve TR P. Velocity 267.00 cm/s RAP Estimate 10.00 mmHg RVSP 38.50 mmHg Left Ventricle The left ventricle is normal size. The left ventricular systolic function is normal. The left ventricular ejection fraction is within the normal range. There is increased LV wall thickness. There is normal LV segmental wall motion. Grade 2 diastolic dysfunction is present. LVEF is 55%. Right Ventricle Right ventricle is mildly dilated. The right ventricular systolic function is normal. Atria Left atrium is moderately dilated. Right atrium is mildly dilated. There is no Doppler evidence of interatrial shunt. Aortic Valve The aortic valve is mildly thickened. There is no aortic valvular stenosis. Mild Mild aortic regurgitation. Mitral Valve Mild mitral annular calcification. Mitral valve leaflets are mildly thickened. No evidence of mitral valve stenosis. Mean MV gradient 3 mmHg (HR 70 bpm). Mild mitral regurgitation. Tricuspid Valve The tricuspid valve leaflets are thin and pliable. Mild tricuspid regurgitation. RVSP is 25-30 mmHg. Pulmonic Valve The pulmonary valve is normal in structure. Trace pulmonic regurgitation. Great Vessels The aortic root is normal in size. The ascending aorta is not well-visualized. IVC is normal in size and collapses >50% with inspiration. Pericardium There is no pericardial effusion. Other Information Study Quality: Fair Conclusion Normal biventricular systolic function. Grade 2 diastolic dysfunction. Mild RV dilation. Biatrial dilation. Mild MR, TR, mild AI Electronically signed by : Kaur Viera MD 09/28/2023 17:16:19
== END 2023-09-24 13:30 | disposition home or self-care (01) ==
PROVIDERS: PCP Internal Medicine; Visit Provider Nurse Practitioner Family
DX: R06.00 Dyspnea, unspecified (principal); I73.9 Peripheral vascular disease, unspecified; E78.5 Hyperlipidemia, unspecified; G47.33 Obstructive sleep apnea (adult) (pediatric); Z87.891 Personal history of nicotine dependence; R07.9 Chest pain, unspecified; I51.7 Cardiomegaly
CPT/HCPCS: 75574; 93306; Q9967

== ENCOUNTER 2023-11-04 12:17 | Observation (INO) | payer MEDICARE, SELFPAY ==
[2023-11-04] VITALS (22 sets, daily range): BP systolic 114–186; BP diastolic 60–110; PULSE 47–83; RESP 16–19; TEMP 36.4–36.9; O2SAT 93–99; BMI 29.0
--- NOTE | 2023-11-04 07:04 | IR_ITS ---
APPROVED REPORT Patient Location: Outpatient Agronomy Manager: EMY Silverio RT (R) PROCEDURES Left heart catheterization Left ventriculogram Selective coronary angiogram Drug-eluting stent deployment to the posterior descending artery off the circumflex artery Drug-eluting stent deployment to the ostial proximal mid and distal anomalous circumflex artery Intravascular ultrasound to the circumflex artery Drug-eluting stent deployment to the ostial and proximal right coronary artery Intravascular ultrasound to the ostial and proximal right coronary INDICATION Coronary artery disease, Abnormal CCTA, Angina pectoris, Dissection of the circumflex artery, Dissection of the right coronary artery, Informed consent was obtained prior to the procedure. Estimated Blood Loss: Less than 10 mls TECHNIQUE One percent lidocaine used to anesthetize the right anterior aspect of the wrist. The right radial artery was accessed via the Seldinger technique. A 6 [place] sheath was placed in the right radial artery. 2.5 mg of Verapamil, 800 mcg of nitroglycerin, 1mg Lidocaine and 5000 U Heparin were given through the arterial sheath. The papa catheter was also used to perform left heart catheterization, left ventriculogram and selective coronary angiogram. At the end of the diagnostic angiogram therapeutic heparin was administered giving a therapeutic ACT and a guide catheter followed by a Choice PT extra-support wire was placed in the circumflex artery. Guide liner was advanced due to an ostial stenosis and the anomalous takeoff of the circumflex artery. It was felt better engagement would be required. Wire was placed into the posterior descending artery. Shortly after the wire was placed dissection was identified from the ostial segment which is spiraled down into the posterior descending artery. A 2.5 x 38 mm Miguel frontier stent was placed into the posterior descending artery. An additional 2.25 x 22 mm [place] frontier stent was placed distal to the first stent yet still overlapping. This stopped the distal propagation of the dissection. A 3 mm x 38 mm [place] frontier stent was placed proximal to the 2.5 mm stent and deployed at 20 arden. An additional 3 mm x 38 mm Chel[place] frontier stent was placed proximal to this yet still overlapping and deployed at 20 arden. Intravascular ultrasound probe was then inserted which demonstrated the dissection flap was still approximately identified. An additional 3 mm x 12 mm [place] frontier stent was placed ostially yet still overlapping the stent and deployed at 24 arden. Intravascular ultrasound probe demonstrated the dissection flap had sealed. There was an ascending aortic hematoma which was identified. The wire was placed into the right coronary artery where dissection was also identified. A 3 mm x 22 mm Miguel frontier stent was placed in the proximal segment and deployed at 20 arden. Intravascular ultrasound probe was advanced which demonstrated a dissection was identified in the ostial segment therefore a 4 mm x 12 mm Miguel frontier stent was placed proximal to the for stent yet still overlapping and then deployed at 22 arden. Intravascular ultrasound probe was readvanced which demonstrated the dissection flap was appropriately tacked back and there was no ongoing extravasation into the aortic hematoma. Repeat angiography demonstrated MEGNHA-3 flow down the circumflex artery and the right coronary both before and after the procedure. Within the procedure the apparatus was removed the sheath was removed and hemostasis was achieved using TR banding patient transferred to the postoperative in stable condition ANGIOGRAPHIC RESULTS The left anterior descending artery Originates in the left coronary cusp has proximal 10 to 20% stenoses with diffuse mid vessel 20 and 30% stenosis The circumflex artery Has a large and dominant and originates from the right coronary cusp. The ostial segment has a 40 to 50% stenosis with additional 30% mid vessel stenosis. A focal greater than 90% stenosis is identified in the ostial proximal segment of a large posterior descending artery. The right coronary artery Originates from the right coronary cusp is widely patent with mild luminal regularities The DALEY ventriculogram reveals Normal 65% The left ventricular end-diastolic pressure 10 mmHg IMPRESSION Coronary disease as described above Successful stenting of the ostial proximal mid and distal circumflex artery with dissection and severe disease reduced to 0% with 3 contiguous drug-eluting stents Successful stenting of the posterior descending artery off the dominant circumflex artery critical disease reduced to 0% with 2 drug-eluting stents Successful stenting of the ostial proximal right coronary artery dissection reduced to 0% with 2 contiguous drug-eluting stents Ascending aortic hematoma which appears to be self-limiting following stenting of the ostial segments Normal ejection fraction Normal left ventricular diastolic pressure 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 Effient and aspirin 2. Patient will be admitted overnight. Recommend CT chest in the morning to verify stability of the aortic hematoma 3. LDL less than 55 to be treated with high intensity statin 4. Avoidance of tobacco products 5. Cardiac rehabilitation Electronically signed by : Pool Marquez MD 11/04/2023 14:22:49
[2023-11-04 08:45] LABS: Basophils # 0.1 K/mm3 (0-0.2); Eosinophils # 0.2 K/mm3 (0.0-0.4); Eosinophils % 2.6 % (0.1-12.0); Hematocrit 41.7 % (37.0-47.0); Hemoglobin 13.5 g/dL (12.2-16.2); Lymphocytes % 27.5 % (10-50); Mean Corpuscular HGB Conc 32.4 g/dL (31.8-35.4); Mean Corpuscular Hemoglobin 33.6 pg (27.0-31.2); Mean Corpuscular Volume 103.6 fl (81-99); Mean Platelet Volume 8.5 fl (7.4-10.4); Monocytes # 0.4 K/mm3 (0.1-1.0); Neutrophils # 4.6 K/mm3 (1.8-7.8); Platelet Count 313 K/mm3 (142-424); Red Blood Count 4.02 M/mm3 (4.20-5.40); Red Cell Distribution Width 14.9 % (11.5-17.5); White Blood Count 7.3 K/mm3 (4.8-10.8)
[2023-11-04 08:53] LABS: Chloride 106 mmol/L (98-107); Potassium 3.9 mmoL/L (3.5-5.1); Sodium 142 mmol/L (136-145)
[2023-11-04 08:56] LABS: Anion Gap 10.9 mEq/L (5-15); Blood Urea Nitrogen 16 mg/dl (7-17); Calcium 9.1 mg/dl (8.4-10.2); Carbon Dioxide 29 mmol/L (22.0-30.0); Creatinine Clearance Estimated 60 mL/min (50-200); Estimated Glomerular Filt Rate 71 ml/min (>60); GFR (African American) 86 ML/MIN (>60); Glucose 93 mg/dl (74-100)
[2023-11-04] MEDS: MIDAZOLAM HCL 1MG/1ML 5ML VIAL 1 MG IV (09:58)
[2023-11-04] MEDS: LIDOCAINE 1% 10ML MDV 20 ML IJ (09:58)
[2023-11-04] MEDS: HEPARIN 1,000 UNITS/ML 10ML VIAL (CATH LAB) 10000 UNIT IV (09:58)
[2023-11-04] MEDS: VERAPAMIL 2.5MG/ML 2ML VIAL 2.5 MG IV (09:59)
[2023-11-04] MEDS: HEPARIN 1,000 UNITS/500ML NS (CATH LAB) 3000 UNIT IV (09:59)
[2023-11-04] MEDS: FENTANYL 100MCG/2ML VIAL 50 MCG IV (09:59)
[2023-11-04] MEDS: diphenhydrAMINE 50MG/ML VIAL 50 MG IV (10:00)
[2023-11-04] MEDS: LABETALOL 20MG/4ML SYRINGE 20 MG IV (11:29)
[2023-11-04] MEDS: HYDRALAZINE 20MG/ML VIAL 20 MG IV (11:29)
--- NOTE | 2023-11-04 12:35 | HMH.PHAINT1 ---
Pharmacy Intervention Comments: MEDICATION RECONCILIATION COMPLETED ON PATIENT USING EXTERNAL FILL HISTORY FROM PHARMACY AND LIST FROM CARDIOLOGY/PCP OFFICE. -ZBIGNIEW GALLOWAYD
[2023-11-04] MEDS: IOPAMIDOL-370 (76%);100ML BOTTLE 210 ML IV (14:59)
[2023-11-04 15:08] LABS: CATHL Activated Clotting Time 252 SEC (74-125)
[2023-11-04 15:09] LABS: CATHL Activated Clotting Time > 400 SEC (74-125)
--- NOTE | 2023-11-04 17:44 | EXP.HP ---
History of Present Illness *Admission Date: 11/04/23 *Reason for visit:: Chest discomfort, coronary artery dissection *History of present illness: Ms. Rod is a 68-year-old female who is brought in for elective heart cath due to atypical angina and abnormal findings on diagnostic imaging. Had extensive disease necessitating reconstruction today. Received large volume of contrast. Had minor complication with dissection of coronary artery. Hemostasis achieved during procedure. Discussed case cardiology, request admission for monitoring overnight and serial labs along with repeat imaging in the morning. Medicine agreed to admit for further management. Patient hemodynamically stable on arrival to the floor. In no acute distress. Denies chest pain, shortness of breath. Tolerating p.o. intake. Review of systems otherwise negative. Afebrile, on room air. [facility] Disclaimer: The information contained in this section may have been updated after the patient was seen, as this information can be updated by other users. Medical History Abnormal electrocardiogram [ECG] [EKG] Dyspnea Body mass index (BMI) of 25.0 to 29.9 Chronic low back pain without sciatica Depression Dystrophia unguium Gastroesophageal reflux disease Goiter Hyperlipidemia Hypertension Incurvated nail Keratosis Low back pain Onychomycosis Overweight with body mass index (BMI) 25.0-29.9 Thyroid Nodule Abnormal ankle brachial index (JOLLY) Carpal tunnel syndrome on both sides Sleep apnea History of gastroesophageal reflux (GERD) Thyroid cancer Ex-smoker Daytime somnolence Snoring Chest pain Surgical History Status post partial thyroidectomy History of hysterectomy History of cholecystectomy History of back surgery History of left hip replacement Family History No significant family history Family history of stroke Family history of cancer Family history of hypertension Family history of myocardial infarction Social History Smoking Status: Former smoker alcohol intake: never substance use type: denies use current occupational status: other Travel in the last 8 weeks: None household members: family housing: house caffeine: Yes Review of Systems Review of Systems Review of systems (narrative): 14 point review of systems performed, pertinent positives and negatives as per HPI Meds Home Medications and Allergies Home Medications ?Medication ?Instructions ?Recorded ?Confirmed ?Type biotin 1,000 mcg chewable tablet 1,000 mcg PO DAILY 04/10/17 11/04/23 History cyanocobalamin (vitamin B-12) 100 100 mcg PO DAILY 04/10/17 11/04/23 History mcg tablet (Vitamin B-12) calcium carbonate 500 mg-vitamin 500 mg PO BID 01/04/22 11/04/23 History D3 5 mcg (200 unit) tablet aspirin 325 mg tablet 325 mg PO DAILY 01/08/22 11/04/23 History atorvastatin 40 mg tablet 40 mg PO DAILY #90 tabs 08/13/23 11/04/23 Rx isosorbide mononitrate 30 mg 30 mg PO DAILY #30 tabs 10/14/23 11/04/23 Rx tablet,extended release 24 hr alendronate 70 mg tablet 70 mg PO WEEKLY 11/04/23 11/04/23 History allopurinol 300 mg tablet 300 mg PO DAILY 11/04/23 11/04/23 History amlodipine 5 mg tablet 5 mg PO DAILY 11/04/23 11/04/23 History baclofen 20 mg tablet 20 mg PO TID 11/04/23 11/04/23 History clopidogrel 75 mg tablet 75 mg PO DAILY 11/04/23 11/04/23 History fluoxetine 20 mg capsule 20 mg PO DAILY 11/04/23 11/04/23 History furosemide 20 mg tablet 20 mg PO BID 11/04/23 11/04/23 History gabapentin 600 mg tablet 600 mg PO TID 11/04/23 11/04/23 History levothyroxine 25 mcg tablet 25 mcg PO DAILY 11/04/23 11/04/23 History losartan 100 mg tablet 100 mg PO DAILY 11/04/23 11/04/23 History potassium chloride 10 mEq 10 meq PO DAILY 11/04/23 11/04/23 History capsule,extended release New Prescriptions to Start Prescriptions: Allergies Allergy/AdvReac Type Severity Reaction Status Date / Time lisinopril AdvReac Severe cough Verified 10/21/23 10:05 Exam Data for Last 24 hours Vital signs and Labs for Last 24 Hours: Temp Pulse Resp BP Pulse Ox O2 Del Method 97.6 F 81 16 138/63 94 L Room Air 11/04/23 17:00 11/04/23 17:00 11/04/23 17:00 11/04/23 17:00 11/04/23 17:00 11/04/23 17:00 Laboratory Results - last 24 hr 11/04/23 08:40: WBC 7.3, RBC 4.02 L, Hgb 13.5, Hct 41.7, MCV 103.6 H, MCH 33.6 H, MCHC 32.4, RDW 14.9, Plt Count 313, MPV 8.5, Neut % (Auto) 63.0, Lymph % (Auto) 27.5, [place] % (Auto) 6.0, Eos % (Auto) 2.6, Baso % (Auto) 1.0, Neut # (Auto) 4.6, Lymph # (Auto) 2.0, [place] # (Auto) 0.4, Eos # (Auto) 0.2, Baso # (Auto) 0.1, Sodium 142, Potassium 3.9, Chloride 106, Carbon Dioxide 29, Anion Gap 10.9, BUN 16, Creatinine 0.80, Estimated Creat Clear 60, Estimated GFR 71, Est GFR ( Amer) 86, Glucose 93, Calcium 9.1 11/04/23 10:50: Activated Clotting Time > 400 H* 11/04/23 11:18: Activated Clotting Time 252 H* D I & O for Last 24 hours: Intake & Output 11/01/23 11/02/23 11/03/23 11/04/23 23:59 23:59 23:59 23:59 Weight 72.121 kg Constitutional Constitutional: no acute distress, average body habitus and cooperative *Routine HEENT Exam Head: Present normocephalic Eye: Present EOMI and PERRL ENT: Present mucous membranes moist *Routine Neck Exam Neck: Present supple; Absent lymphadenopathy *Routine Respiratory Exam Respiratory: Present CTA bilaterally; Absent rhonchi, stridor, wheezes or crackles *Routine Cardiovascular Exam Cardiovascular: Present RRR *Routine Abdominal Exam Abdominal: Present soft and normoactive bowel sounds; Absent tenderness *Routine Rectal Exam Rectal:: deferred *Routine Genitalia Exam Genitalia:: deferred *Routine Extremities Exam Extremities: Absent cyanosis, clubbing or edema *Routine Skin Exam Skin: Present intact and warm; Absent rash *Routine Neurological Exam Neurological: Present alert, oriented X3 and moving all extremities; Absent altered mental status Assessment and Plan *Assessment and plan (1) Atypical angina: Status: Acute Category: Medical Code(s): I20.89 - Other forms of angina pectoris (2) Dissection of coronary artery: Status: Acute Category: Medical Code(s): I25.42 - Coronary artery dissection (3) Depression: Status: Acute Category: Medical Code(s): F32.A - Depression, unspecified (4) Hyperlipidemia: Status: Acute Category: Medical Code(s): E78.5 - Hyperlipidemia, unspecified (5) Hypertension: Status: Acute Category: Medical Code(s): I10 - Essential (primary) hypertension (6) Gastroesophageal reflux disease: Status: Acute Category: Medical Code(s): K21.9 - Gastro-esophageal reflux disease without esophagitis (7) CAD (coronary artery disease): Status: Acute Category: Medical Code(s): I25.10 - Atherosclerotic heart disease of [place] coronary artery without angina pectoris Plan Ms. Rod is a 68-year-old female with history of CAD, atypical neck, gout, depression, hypothyroid, hyperlipidemia, hypertension. She presented for elective left heart cath today. Had severe circumflex disease necessitating numerous stents. Cardiology requested monitoring overnight due to contrast load and coronary artery dissection. I agreed to admit for further management. Patient hemodynamically stable after arrival to the floor. Denies any chest pain. On room air. Will monitor on telemetry. Problems addressed as follows: CAD Coronary artery dissection Hypertension -Successful stenting of ostial proximal and mid and distal circumflex. -Dissection of circumflex. No active bleeding at time of transfer to the floor. -Received 3 stents to the circumflex, 2 stents to the posterior descending artery off the circumflex. -Received 2 additional stents to the ostial proximal right coronary artery. -Repeat CBC, CMP, magnesium in the morning -Will obtain CT chest in the morning to monitor for any active extravasation, hematoma, effusion. -Plavix 75 mg daily, aspirin 81 mg daily. -Continue losartan 100 mg once daily for hypertension, isosorbide mononitrate grams daily, Lasix 20 mg twice daily, and amlodipine 5 mg daily. 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
[2023-11-04] MEDS: LACTATED RINGERS 1000ML 1,000 ML 100 ML IV (18:42)
--- NOTE | 2023-11-04 19:58 | PC.NURSE ---
told nurse about elevated b/p
[2023-11-04] MEDS: BACLOFEN 20 MG 20 EACH PO (20:28)
[2023-11-04] MEDS: GABAPENTIN 600MG TABLET 600 MG PO (20:28)
[2023-11-04] MEDS: AMLODIPINE 5MG TABLET 5 MG PO (20:30)
[2023-11-05] VITALS: PULSE 80
[2023-11-05] MEDS: CALCIUM CARBONATE 500MG CHEWTAB 500 MG PO (03:57)
[2023-11-05 04:00] VITALS: BP 122/70; PULSE 70; PULSE 74; RESP 17; TEMP 37.1; O2SAT 93; BMI 30.2
[2023-11-05 06:26] LABS: Chloride 108 mmol/L (98-107)
[2023-11-05 06:27] LABS: Potassium 3.4 mmoL/L (3.5-5.1); Sodium 138 mmol/L (136-145)
[2023-11-05 06:30] LABS: Anion Gap 7.4 mEq/L (5-15); Blood Urea Nitrogen 13 mg/dl (7-17); Calcium 8.3 mg/dl (8.4-10.2); Carbon Dioxide 26 mmol/L (22.0-30.0); Creatinine Clearance Estimated 62 mL/min (50-200); Estimated Glomerular Filt Rate 99 ml/min (>60); GFR (African American) 120 ML/MIN (>60); Glucose 104 mg/dl (74-100)
[2023-11-05 06:55] LABS: Basophils % 0.3 % (0.1-2.0); Eosinophils % 0.3 % (0.1-12.0); Hematocrit 38.3 % (37.0-47.0); Hemoglobin 12.4 g/dL (12.2-16.2); Lymphocytes # 1.9 K/mm3 (0.7-4.5); Lymphocytes % 15.2 % (10-50); Mean Corpuscular HGB Conc 32.5 g/dL (31.8-35.4); Mean Corpuscular Hemoglobin 33.4 pg (27.0-31.2); Mean Corpuscular Volume 102.8 fl (81-99); Mean Platelet Volume 8.9 fl (7.4-10.4); Monocytes # 0.8 K/mm3 (0.1-1.0); Monocytes % 6.5 % (1.7-9.3); Neutrophils # 9.8 K/mm3 (1.8-7.8); Neutrophils % 77.8 % (37.0-80.0); Platelet Count 304 K/mm3 (142-424); Red Blood Count 3.73 M/mm3 (4.20-5.40); Red Cell Distribution Width 14.9 % (11.5-17.5); White Blood Count 12.5 K/mm3 (4.8-10.8)
--- NOTE | 2023-11-05 07:00 | CT_ITS ---
FINAL REPORT TECHNIQUE: Axial CT images were performed from the lung apices through the upper abdomen. Coronal reformats were submitted. This study was performed with techniques to keep radiation doses as low as reasonably achievable (ALARA). Individualized dose reduction techniques using automated exposure control or adjustment of mA and/or kV according to the patient's size were employed. CLINICAL HISTORY: eval aortic hematoma FINDINGS: Diffuse vascular calcification is identified. There are borderline sized mediastinal nodes. No mediastinal mass or hemorrhage is identified. There are multiple borderline sized axillary nodes. Heart size is normal. There is no pericardial or pleural effusion. Small hiatal hernia is noted. Several calcified granulomas are identified. There is bibasilar atelectasis. There is focal ground-glass opacity in the right upper lobe measuring 17 mm. There are several low-attenuation hepatic foci which can not be accurately characterized without contrast, likely represent cysts. Patient is status post cholecystectomy. There are partially imaged postoperative changes in the upper lumbar spine. IMPRESSION: No mediastinal mass or hemorrhage. Reviewed, Interpreted and Dictated by David Sneed III, MD Transcribed by Chandrika Culver Authenticated and . [facility]
[2023-11-05 08:00] VITALS: BP 147/65; PULSE 74; PULSE 80; RESP 19; TEMP 37; O2SAT 93
[2023-11-05] MEDS: ISOSORBIDE MONO 30MG TAB.ER.24H 30 MG PO (08:55)
[2023-11-05] MEDS: LEVOTHYROXINE 25MCG (0.025MG) TAB 25 MCG PO (08:55)
[2023-11-05] MEDS: FLUOXETINE 20MG CAPSULE 20 MG PO (08:55)
[2023-11-05] MEDS: ALLOPURINOL 300MG TABLET 300 MG PO (08:55)
[2023-11-05] MEDS: GABAPENTIN 600MG TABLET 600 MG PO (08:55)
[2023-11-05] MEDS: BACLOFEN 10MG TABLET 20 MG PO (08:56)
[2023-11-05] MEDS: ASPIRIN 81MG CHEWABLE TABLET 81 MG PO (09:37)
[2023-11-05] MEDS: CLOPIDOGREL 75MG TAB 75 MG PO (09:37)
--- NOTE | 2023-11-05 09:37 | P.DS_ITS ---
General Admission date:: 11/04/23 Discharge date: 11/05/23 HPI HPI HPI: Ms. Thomas is a 68-year-old female who is brought in for elective heart cath due to atypical angina and abnormal findings on diagnostic imaging. Had extensive disease necessitating reconstruction today. Received large volume of contrast. Had minor complication with dissection of coronary artery. Hemostasis achieved during procedure. Discussed case cardiology, request admission for monitoring overnight and serial labs along with repeat imaging in the morning. Medicine agreed to admit for further management. Patient hemodynamically stable on arrival to the floor. In no acute distress. Denies chest pain, shortness of breath. Tolerating p.o. intake. Review of systems otherwise negative. Afebrile, on room air. Hospital Course Hospital Course Hospital Course: Ms. Thomas is a 68-year-old female with history of CAD, atypical neck, gout, depression, hypothyroid, hyperlipidemia, hypertension. She presented for elective left heart cath today. Had severe circumflex disease necessitating numerous stents. Cardiology requested monitoring overnight due to contrast load and coronary artery dissection. I agreed to admit for further management. Patient remained hemodynamically stable. CT obtained in the morning showing no pericardial effusion or aortic hematoma. Continue goal-directed therapy at discharge. Follow-up with cardiology. Problems addressed as follows: CAD Coronary artery dissection Hypertension -Successful stenting of ostial proximal and mid and distal circumflex. Dissection of circumflex. No active bleeding at time of transfer to the floor. Received 3 stents to the circumflex, 2 stents to the posterior descending artery off the circumflex. Received 2 additional stents to the ostial proximal right coronary artery. No issues overnight. Monitored on telemetry. CT of the chest obtained in the morning showing no active extravasation, hematoma, pericardial effusion. Cardiology evaluated. Agrees to discharge home. Continue Plavix 75 mg daily, aspirin 81 mg daily, losartan 100 mg once daily for hypertension, isosorbide mononitrate grams daily, Lasix 20 mg twice daily, and amlodipine 5 mg daily. Hyperlipidemia: Continue Lipitor 40 mg daily Depression: Continue Prozac 20 mg daily Gout: Continue allopurinol 300mg daily Hypothyroid: Continue levothyroxine 25 mcg daily Neuropathy: Continue gabapentin 600 mg times a day Exam Data for Last 24 hours Vital signs and Labs for Last 24 Hours: Temp Pulse Resp BP Pulse Ox O2 Del Method 98.6 F 74 19 147/65 H 93 L Room Air 11/05/23 08:00 11/05/23 08:00 11/05/23 08:00 11/05/23 08:00 11/05/23 08:00 11/05/23 08:00 Laboratory Results - last 24 hr 11/04/23 10:50: Activated Clotting Time > 400 H* 11/04/23 11:18: Activated Clotting Time 252 H* D 11/05/23 05:43: WBC 12.5 H D, RBC 3.73 L, Hgb 12.4, Hct 38.3, MCV 102.8 H, MCH 33.4 H, MCHC 32.5, RDW 14.9, Plt Count 304, MPV 8.9, Neut % (Auto) 77.8, Lymph % (Auto) 15.2, [place] % (Auto) 6.5, Eos % (Auto) 0.3, Baso % (Auto) 0.3, Neut # (Auto) 9.8 H, Lymph # (Auto) 1.9, [place] # (Auto) 0.8, Eos # (Auto) 0.0, Baso # (A uto) 0.0, Sodium 138, Potassium 3.4 L, Chloride 108 H, Carbon Dioxide 26, Anion Gap 7.4, BUN 13, Creatinine 0.60 D, Estimated Creat Clear 62, Estimated GFR 99, Est GFR ( Amer) 120 D, Glucose 104 H, Calcium 8.3 L I & O for Last 24 hours: Intake & Output 11/02/23 11/03/23 11/04/23 11/05/23 23:59 23:59 23:59 23:59 Intake Total 1510 / 1510 Balance 1510 / 1510 Weight 72.121 kg 74.435 kg Constitutional Constitutional: no acute distress *Routine HEENT Exam Head: Present normocephalic Eye: Present EOMI and PERRL ENT: Present mucous membranes moist *Routine Neck Exam Neck: Present supple; Absent lymphadenopathy *Routine Respiratory Exam Respiratory: Present CTA bilaterally *Routine Cardiovascular Exam Cardiovascular: Present RRR *Routine Abdominal Exam Abdominal: Present soft and normoactive bowel sounds; Absent tenderness *Routine Rectal Exam Patient deferred: visual exam *Routine Exam Patient deferred: external exam *Routine Extremities Exam Extremities: Absent cyanosis, clubbing or edema Comments: right radial access point CDI *Routine Skin Exam Skin: Present warm; Absent rash *Routine Neurological Exam Neurological: Present alert, oriented X3 and moving all extremities; Absent altered mental status Results Data Completed and Pending Labs on day of discharge: Labs from last 24 hours 11/05/23 11/04/23 11/04/23 05:43 11:18 10:50 WBC 12.5 H D RBC 3.73 L Hgb 12.4 Hct 38.3 MCV 102.8 H MCH 33.4 H MCHC 32.5 RDW 14.9 Plt Count 304 MPV 8.9 Neut % (Auto) 77.8 Lymph % (Auto) 15.2 [place] % (Auto) 6.5 Eos % (Auto) 0.3 Baso % (Auto) 0.3 Neut # (Auto) 9.8 H Lymph # (Auto) 1.9 [place] # (Auto) 0.8 Eos # (Auto) 0.0 Baso # (Auto) 0.0 Activated Clotting Time 252 H* D > 400 H* Sodium 138 Potassium 3.4 L Chloride 108 H Carbon Dioxide 26 Anion Gap 7.4 BUN 13 Creatinine 0.60 D Estimated Creat Clear 62 Estimated GFR 99 Est GFR ( Amer) 120 D Glucose 104 H Calcium 8.3 L DS: Diagnosis Discharge Diagnosis (1) Atypical angina: Status: Acute Code(s): I20.89 - Other forms of angina pectoris (2) Dissection of coronary artery: Status: Acute Code(s): I25.42 - Coronary artery dissection (3) Depression: Status: Acute Code(s): F32.A - Depression, unspecified (4) Hyperlipidemia: Status: Acute Code(s): E78.5 - Hyperlipidemia, unspecified (5) Hypertension: Status: Acute Code(s): I10 - Essential (primary) hypertension (6) Gastroesophageal reflux disease: Status: Acute Code(s): K21.9 - Gastro-esophageal reflux disease without esophagitis (7) CAD (coronary artery disease): Status: Acute Code(s): I25.10 - Atherosclerotic heart disease of [place] coronary artery without angina pectoris Meds Home Medications and Allergies Home Medications ?Medication ?Instructions ?Recorded ?Confirmed ?Type biotin 1,000 mcg chewable tablet 1,000 mcg PO DAILY 04/10/17 11/04/23 History cyanocobalamin (vitamin B-12) 100 100 mcg PO DAILY 04/10/17 11/04/23 History mcg tablet (Vitamin B-12) calcium carbonate 500 mg-vitamin 500 mg PO BID 01/04/22 11/04/23 History D3 5 mcg (200 unit) tablet atorvastatin 40 mg tablet 40 mg PO DAILY #90 tabs 08/13/23 11/04/23 Rx isosorbide mononitrate 30 mg 30 mg PO DAILY #30 tabs 10/14/23 11/04/23 Rx tablet,extended release 24 hr alendronate 70 mg tablet 70 mg PO WEEKLY 11/04/23 11/04/23 History allopurinol 300 mg tablet 300 mg PO DAILY 11/04/23 11/04/23 History amlodipine 5 mg tablet 5 mg PO DAILY 11/04/23 11/04/23 History baclofen 20 mg tablet 20 mg PO TID 11/04/23 11/04/23 History clopidogrel 75 mg tablet 75 mg PO DAILY 11/04/23 11/04/23 History fluoxetine 20 mg capsule 20 mg PO DAILY 11/04/23 11/04/23 History furosemide 20 mg tablet 20 mg PO BID 11/04/23 11/04/23 History gabapentin 600 mg tablet 600 mg PO TID 11/04/23 11/04/23 History levothyroxine 25 mcg tablet 25 mcg PO DAILY 11/04/23 11/04/23 History losartan 100 mg tablet 100 mg PO DAILY 11/04/23 11/04/23 History potassium chloride 10 mEq 10 meq PO DAILY 11/04/23 11/04/23 History capsule,extended release aspirin 81 mg tablet,delayed 81 mg PO DAILY 30 days #30 tabs 11/05/23 Rx release New Prescriptions to Start Prescriptions: Mike Roy Allergies Allergy/AdvReac Type Severity Reaction Status Date / Time lisinopril AdvReac Severe cough Verified 10/21/23 10:05 Discharge Plan Disposition Patient Disposition: Home, Self-Care Condition: Fair Follow up Plan Follow up with: Jonas Lua DO [Primary Care Provider] - 11/12/23 1:15 pm Pool Marquez MD [Staff Physician] - 11/11/23 10:15 am Prescriptions/Medication Reconciliation: New aspirin 81 mg tablet,delayed release (DR/EC) 81 mg PO DAILY 30 Days Qty: 30 0RF Continued biotin 1,000 mcg tablet,chewable 1,000 mcg PO DAILY cyanocobalamin (vitamin B-12) [Vitamin B-12] 100 mcg tablet 100 mcg PO DAILY atorvastatin 40 mg tablet 40 mg PO DAILY Qty: 90 3RF isosorbide mononitrate 30 mg tablet extended release 24 hr 30 mg PO DAILY Qty: 30 2RF clopidogrel 75 mg tablet 75 mg PO DAILY potassium chloride 10 mEq capsule, extended release 10 meq PO DAILY gabapentin 600 mg tablet 600 mg PO TID alendronate 70 mg tablet 70 mg PO WEEKLY amlodipine 5 mg tablet 5 mg PO DAILY levothyroxine 25 mcg tablet 25 mcg PO DAILY baclofen 20 mg tablet 20 mg PO TID allopurinol 300 mg tablet 300 mg PO DAILY furosemide 20 mg tablet 20 mg PO BID losartan 100 mg tablet 100 mg PO DAILY fluoxetine 20 mg capsule 20 mg PO DAILY calcium carbonate-vitamin D3 500 MG tablet 500 mg PO BID Discontinued aspirin 325 mg tablet 325 mg PO DAILY Problem Reconciliation Problems Reviewed?: Yes Patient Discharge Instructions ACTIVITY: Continue current activity and No heavy lifting DIET: continue same diet Patient Instructions: DI for Cardiac Catheterization, DI for Coronary Stenting, DI for Surgical Site Infection, DI for Moderate Sedation, DI for Post-Surgical Bleeding Print Language: Azeri Providers Primary Care Provider: Jonas Lua Admit Provider: Mike Nielsen Attending Provider: Mike Nielsen
--- NOTE | 2023-11-05 13:17 | EXP.CARD.CON ---
History of Present Illness History of Present Illness Consult date: 11/05/23 Consult reason: known to you Chief complaint: Shortness of breath History of present illness: 68-year-old white female established patient of our office with history of PAD status post intervention 2022. Recently presented to the office complaining of worsening shortness of breath most notably while singing at [employer]. She had a CCTA which was abnormal and was referred for elective heart cath. Yesterday she came for her elective heart cath and was noted to have a 90% PDA which dissected during the procedure into the RCA. Both vessels were stented successfully without any further complication. She was kept overnight for observation. Repeat CT chest this morning shows no mass or hemorrhage. Her vitals and labs are stable. She feels ready for discharge [facility] Disclaimer: The information contained in this section may have been updated after the patient was seen, as this information can be updated by other users. Medical History Abnormal electrocardiogram [ECG] [EKG] Dyspnea Body mass index (BMI) of 25.0 to 29.9 Chronic low back pain without sciatica Depression Dystrophia unguium Gastroesophageal reflux disease Goiter Hyperlipidemia Hypertension Incurvated nail Keratosis Low back pain Onychomycosis Overweight with body mass index (BMI) 25.0-29.9 Thyroid Nodule Abnormal ankle brachial index (JOLLY) Carpal tunnel syndrome on both sides Sleep apnea History of gastroesophageal reflux (GERD) Thyroid cancer Ex-smoker Daytime somnolence Snoring Chest pain Surgical History Status post partial thyroidectomy History of hysterectomy History of cholecystectomy History of back surgery History of left hip replacement Family History Other Family history of cancer Family history of hypertension Family history of myocardial infarction Family history of stroke No significant family history Social History Smoking Status: Former smoker alcohol intake: never substance use type: denies use current occupational status: other Travel in the last 8 weeks: None household members: family housing: house caffeine: Yes Review of Systems Constitutional Constitutional: Denies fatigue and Denies weakness Eyes Eyes: Denies loss of vision ENT Ears, Nose, Mouth, and Throat: Denies hearing loss and Denies vertigo *Cardiovascular Cardiovascular: Denies chest pain, Denies dyspnea and Denies syncope *Respiratory Respiratory: Denies cough and Denies dyspnea *Gastrointestinal Gastrointestinal: Denies change in stool character, Denies nausea and Denies vomiting *Musculoskeletal Musculoskeletal: Denies muscle weakness Integumentary/Breasts Skin/Breast: Denies changing lesions *Neurologic Neurologic: Denies loss of vision, Denies syncope, Denies vertigo and Denies weakness Endocrine Endocrine: Denies fatigue Exam Data for Last 24 hours Vital signs and Labs for Last 24 Hours: Temp Pulse Resp BP Pulse Ox O2 Del Method 98.6 F 74 19 147/65 H 93 L Room Air 11/05/23 08:00 11/05/23 08:00 11/05/23 08:00 11/05/23 08:00 11/05/23 08:00 11/05/23 11:00 Laboratory Results - last 24 hr 11/04/23 10:50: Activated Clotting Time > 400 H* 11/04/23 11:18: Activated Clotting Time 252 H* D 11/05/23 05:43: WBC 12.5 H D, RBC 3.73 L, Hgb 12.4, Hct 38.3, MCV 102.8 H, MCH 33.4 H, MCHC 32.5, RDW 14.9, Plt Count 304, MPV 8.9, Neut % (Auto) 77.8, Lymph % (Auto) 15.2, [place] % (Auto) 6.5, Eos % (Auto) 0.3, Baso % (Auto) 0.3, Neut # (Auto) 9.8 H, Lymph # (Auto) 1.9, [place] # (Auto) 0.8, Eos # (Auto) 0.0, Baso # (Auto) 0.0, Sodium 138, Potassium 3.4 L, Chloride 108 H, Carbon Dioxide 26, Anion Gap 7.4, BUN 13, Creatinine 0.60 D, Estimated Creat Clear 62, Estimated GFR 99, Est GFR ( Amer) 120 D, Glucose 104 H, Calcium 8.3 L I & O for Last 24 hours: Intake & Output 11/02/23 11/03/23 11/04/23 11/05/23 23:59 23:59 23:59 23:59 Intake Total 1510 / 1510 Balance 1510 / 1510 Weight 159 lb 164 lb 1.6 oz Constitutional Constitutional: no acute distress and cooperative *Routine HEENT Exam Eye: Present PERRL *Routine Respiratory Exam Respiratory: Present CTA bilaterally; Absent accessory muscle use, wheezes or crackles *Routine Cardiovascular Exam Cardiovascular: Present RRR, Normal S1 and Normal S2; Absent murmur, gallop or rubs Comments: Right radial cath site normal on inspection and palpation *Routine Abdominal Exam Abdominal: Present soft; Absent tenderness *Routine Extremities Exam Extremities: Present pulses intact; Absent cyanosis or edema *Routine Skin Exam Skin: Present intact; Absent erythema or wounds *Routine Neurological Exam Neurological: Present alert and oriented X3 Routine Psychiatric Exam Psychiatric: Present cooperative Meds Home Medications and Allergies Home Medications ?Medication ?Instructions ?Recorded ?Confirmed ?Type biotin 1,000 mcg chewable tablet 1,000 mcg PO DAILY 04/10/17 11/04/23 History cyanocobalamin (vitamin B-12) 100 100 mcg PO DAILY 04/10/17 11/04/23 History mcg tablet (Vitamin B-12) calcium carbonate 500 mg-vitamin 500 mg PO BID 01/04/22 11/04/23 History D3 5 mcg (200 unit) tablet atorvastatin 40 mg tablet 40 mg PO DAILY #90 tabs 08/13/23 11/04/23 Rx isosorbide mononitrate 30 mg 30 mg PO DAILY #30 tabs 10/14/23 11/04/23 Rx tablet,extended release 24 hr alendronate 70 mg tablet 70 mg PO WEEKLY 11/04/23 11/04/23 History allopurinol 300 mg tablet 300 mg PO DAILY 11/04/23 11/04/23 History amlodipine 5 mg tablet 5 mg PO DAILY 11/04/23 11/04/23 History baclofen 20 mg tablet 20 mg PO TID 11/04/23 11/04/23 History clopidogrel 75 mg tablet 75 mg PO DAILY 11/04/23 11/04/23 History fluoxetine 20 mg capsule 20 mg PO DAILY 11/04/23 11/04/23 History furosemide 20 mg tablet 20 mg PO BID 11/04/23 11/04/23 History gabapentin 600 mg tablet 600 mg PO TID 11/04/23 11/04/23 History levothyroxine 25 mcg tablet 25 mcg PO DAILY 11/04/23 11/04/23 History losartan 100 mg tablet 100 mg PO DAILY 11/04/23 11/04/23 History potassium chloride 10 mEq 10 meq PO DAILY 11/04/23 11/04/23 History capsule,extended release aspirin 81 mg tablet,delayed 81 mg PO DAILY 30 days #30 tabs 11/05/23 Rx release New Prescriptions to Start Prescriptions: aspirin Mike Nielsen Allergies Allergy/AdvReac Type Severity Reaction Status Date / Time lisinopril AdvReac Severe cough Verified 10/21/23 10:05 Assessment and Plan *Assessment and plan (1) CAD (coronary artery disease): Status: Acute Category: Medical Code(s): I25.10 - Atherosclerotic heart disease of [place] coronary artery without angina pectoris (2) Dissection of coronary artery: Status: Acute Category: Medical Code(s): I25.42 - Coronary artery dissection (3) Abnormal findings on diagnostic imaging of heart and coronary circulation: Status: Acute Category: Medical Code(s): R93.1 - Abnormal findings on diagnostic imaging of heart and coronary circulation Plan CAD s/p PDA PCI - CCS = 0 - Cont DAPT, Statin, nitrate. Will consider addition of BB outpatient Coronary artery dissection -Occurred during left heart cath, stented and resolved quickly -Repeat CT chest today shows no hemorrhage or mass -Labs stable PAD -Continue DAPT and statin Obesity -Would benefit from weight loss, will address outpatient CV stable for discharge home
--- NOTE | 2023-11-06 14:48 | CARE MANAGER ---
Contacted patient related to hospital discharge. Patient states she is doing better. She was unsure why they called in a medication she was already taking. We discussed the dosage change and she verbalized understanding. She is aware of follow up appointments and denies questions or concerns. JAYESH Jesus
== END 2023-11-05 11:32 | disposition home or self-care (01) ==
LOC: 2ND 12:17
PROVIDERS: Internal Medicine; Admitting Provider Internal Medicine Adolescent Medicine; PCP Internal Medicine; Visit Provider Internal Medicine Adolescent Medicine
DX: R94.31 Abnormal electrocardiogram [ECG] [EKG] (principal); R06.00 Dyspnea, unspecified; I73.9 Peripheral vascular disease, unspecified; E78.5 Hyperlipidemia, unspecified; I10 Essential (primary) hypertension; G47.33 Obstructive sleep apnea (adult) (pediatric); R93.1 Abnormal findings on diagnostic imaging of heart and coronary circulation; I25.42 Coronary artery dissection; F32.A Depression, unspecified; K21.9 Gastro-esophageal reflux disease without esophagitis; I25.118 Atherosclerotic heart disease of native coronary artery with other forms of angina pectoris; Z79.899 Other long term (current) drug therapy; Z87.891 Personal history of nicotine dependence
CPT/HCPCS: 36415; 71250; 80048; 85025; 85347; 92928; 92929; 92978; 92979; 93458; 99152; 99153; C1725; C1769; C1874; C9600; C9601; G0378; J1200; J1644; J2250; J3010; J7120; Q9967

== ENCOUNTER 2023-11-07 10:12 | Outpatient (CLI) | payer MEDICARE, SELFPAY ==
[2023-11-07 10:55] LABS: Basophils % 0.5 % (0.1-2.0); Eosinophils # 0.2 K/mm3 (0.0-0.4); Eosinophils % 1.9 % (0.1-12.0); Hematocrit 35.6 % (37.0-47.0); Hemoglobin 11.3 g/dL (12.2-16.2); Lymphocytes % 24.2 % (10-50); Mean Corpuscular HGB Conc 31.6 g/dL (31.8-35.4); Mean Corpuscular Hemoglobin 33.7 pg (27.0-31.2); Mean Corpuscular Volume 106.6 fl (81-99); Mean Platelet Volume 8.1 fl (7.4-10.4); Monocytes # 0.6 K/mm3 (0.1-1.0); Neutrophils # 5.5 K/mm3 (1.8-7.8); Neutrophils % 66.4 % (37.0-80.0); Platelet Count 269 K/mm3 (142-424); Red Blood Count 3.34 M/mm3 (4.20-5.40); Red Cell Distribution Width 14.6 % (11.5-17.5); White Blood Count 8.3 K/mm3 (4.8-10.8)
[2023-11-07 11:13] LABS: Chloride 108 mmol/L (98-107); Sodium 140 mmol/L (136-145)
[2023-11-07 11:14] LABS: Potassium 4.1 mmoL/L (3.5-5.1)
[2023-11-07 11:16] LABS: Blood Urea Nitrogen 15 mg/dl (7-17); Estimated Glomerular Filt Rate 83 ml/min (>60); GFR (African American) 100 ML/MIN (>60)
[2023-11-07 11:17] LABS: Anion Gap 8.1 mEq/L (5-15); Calcium 8.4 mg/dl (8.4-10.2); Carbon Dioxide 28 mmol/L (22.0-30.0); Glucose 85 mg/dl (74-100)
== END 2023-11-07 23:59 | disposition home or self-care (01) ==
LOC: LAB 10:13
PROVIDERS: PCP Internal Medicine; Visit Provider Internal Medicine
DX: I25.10 Atherosclerotic heart disease of native coronary artery without angina pectoris (principal); Z98.61 Coronary angioplasty status; Z87.891 Personal history of nicotine dependence
CPT/HCPCS: 36415; 80048; 85025

== ENCOUNTER 2023-11-12 10:30 | Outpatient (CLI) | payer MEDICARE, SELFPAY | END 2023-11-12 23:59 | disposition home or self-care (01) | LOC: LAB.DROPOF 11-14 10:31 | PROVIDERS: PCP Internal Medicine; Visit Provider Internal Medicine | DX: I25.10 Atherosclerotic heart disease of native coronary artery without angina pectoris (principal) | CPT/HCPCS: 85025 ==

== ENCOUNTER 2023-11-12 10:50 | Outpatient (CLI) | payer MEDICARE, SELFPAY ==
--- NOTE | 2023-11-12 10:50 | US_ITS ---
FINAL REPORT CLINICAL HISTORY: thyroid nodule follow up COMPARISON: 11/20/2022 FINDINGS: Sonographic images of the thyroid gland were obtained. The right thyroid lobe is absent. The left thyroid lobe measures 38 mm. in length. The thyroid isthmus measures 3 mm. There are multiple nodules in the left lobe, largest is solid and hypoechoic measuring 16 mm consistent with TI-RADS category 3. IMPRESSION: Left thyroid lobe nodules consistent with TI-RADS category 3. Consider follow-up in 12 months. Reviewed, Interpreted and Dictated by David Sneed III, MD Transcribed by Chandrika Culver Authenticated and . [facility]
[2023-11-12 18:42] LABS: Basophils % 0.6 % (0.1-2.0); Eosinophils # 0.2 K/mm3 (0.0-0.4); Eosinophils % 3.5 % (0.1-12.0); Hematocrit 33.7 % (37.0-47.0); Hemoglobin 10.6 g/dL (12.2-16.2); Lymphocytes # 1.7 K/mm3 (0.7-4.5); Lymphocytes % 26.7 % (10-50); Mean Corpuscular HGB Conc 31.4 g/dL (31.8-35.4); Mean Corpuscular Hemoglobin 33.2 pg (27.0-31.2); Mean Corpuscular Volume 105.7 fl (81-99); Mean Platelet Volume 8.8 fl (7.4-10.4); Monocytes # 0.5 K/mm3 (0.1-1.0); Monocytes % 7.2 % (1.7-9.3); Neutrophils % 61.9 % (37.0-80.0); Platelet Count 394 K/mm3 (142-424); Red Blood Count 3.19 M/mm3 (4.20-5.40); Red Cell Distribution Width 14.5 % (11.5-17.5); White Blood Count 6.4 K/mm3 (4.8-10.8)
[2023-11-14 18:18] LABS: Peripheral Smear Review Scanned Result
== END 2023-11-12 23:59 | disposition home or self-care (01) ==
LOC: RAD 10:50
PROVIDERS: PCP Internal Medicine; Visit Provider Nurse Practitioner
DX: E04.1 Nontoxic single thyroid nodule (principal); E03.9 Hypothyroidism, unspecified; I25.10 Atherosclerotic heart disease of native coronary artery without angina pectoris
CPT/HCPCS: 76536; 85025

== ENCOUNTER 2023-11-17 15:25 | Outpatient (CLI) | payer MEDICARE, SELFPAY ==
[2023-11-17 15:56] LABS: Basophils # 0.1 K/mm3 (0-0.2); Basophils % 0.8 % (0.1-2.0); Eosinophils # 0.2 K/mm3 (0.0-0.4); Eosinophils % 2.8 % (0.1-12.0); Hematocrit 35.3 % (37.0-47.0); Hemoglobin 11.1 g/dL (12.2-16.2); Lymphocytes # 1.9 K/mm3 (0.7-4.5); Mean Corpuscular HGB Conc 31.4 g/dL (31.8-35.4); Mean Corpuscular Hemoglobin 32.6 pg (27.0-31.2); Mean Corpuscular Volume 103.7 fl (81-99); Mean Platelet Volume 8.6 fl (7.4-10.4); Monocytes # 0.3 K/mm3 (0.1-1.0); Monocytes % 5.4 % (1.7-9.3); Neutrophils # 3.8 K/mm3 (1.8-7.8); Platelet Count 455 K/mm3 (142-424); Red Blood Count 3.41 M/mm3 (4.20-5.40); Red Cell Distribution Width 14.5 % (11.5-17.5); White Blood Count 6.3 K/mm3 (4.8-10.8)
[2023-11-17 17:01] LABS: Albumin Level 3.7 g/dl (3.5-5.0)
[2023-11-17 17:02] LABS: Chloride 104 mmol/L (98-107); Sodium 138 mmol/L (136-145)
[2023-11-17 17:04] LABS: Alanine Aminotransferase 16 U/L (12-78); Aspartate Amino Transferase 23 U/L (14-36); Bilirubin,Unconjugated 0.1 mg/dL (0.0-1.1); Blood Urea Nitrogen 13 mg/dl (7-17); Carbon Dioxide 32 mmol/L (22.0-30.0); Estimated Glomerular Filt Rate 83 ml/min (>60); GFR (African American) 100 ML/MIN (>60); Total Protein,Serum 6.3 g/dl (6.3-8.2)
[2023-11-17 17:05] LABS: Alkaline Phosphatase 72 U/L (38-126); Bilirubin,Direct 0.3 mg/dl (0.0-0.4); Bilirubin,Indirect 0.1 mg/dL (0.0-0.9); Bilirubin,Total 0.4 mg/dl (0.2-1.3); Calcium 8.8 mg/dl (8.4-10.2); Chol/HDL Ratio 3.9 (1-3.5); Cholesterol 148 mg/dl (140-200); Glucose 85 mg/dl (74-100); HDL Cholesterol 38 mg/dl (40-60); Magnesium 2.2 mg/dl (1.6-2.3); Triglycerides 127 mg/dl (30-150); VLDL Cholesterol 25 mg/dL (0-40)
[2023-11-17 17:18] LABS: Direct LDL Cholesterol 79.67 mg/dL (100-129)
[2023-11-17 17:23] LABS: Free T4 (Free Thyroxine) 0.96 ng/dl (0.78-2.19)
[2023-11-17 17:39] LABS: Thyroid Stimulating Hormone 2.13 uIU/mL (0.465-4.68)
[2023-11-17 17:49] LABS: Anion Gap 6.4 mEq/L (5-15); Potassium 4.4 mmoL/L (3.5-5.1)
== END 2023-11-17 23:59 | disposition home or self-care (01) ==
LOC: LAB 15:27
PROVIDERS: Nurse Practitioner; PCP Internal Medicine; Visit Provider Nurse Practitioner
DX: E03.9 Hypothyroidism, unspecified (principal); I11.9 Hypertensive heart disease without heart failure; I25.10 Atherosclerotic heart disease of native coronary artery without angina pectoris; R94.31 Abnormal electrocardiogram [ECG] [EKG]; E78.5 Hyperlipidemia, unspecified; I73.9 Peripheral vascular disease, unspecified; Z87.891 Personal history of nicotine dependence
CPT/HCPCS: 36415; 80048; 80061; 80076; 83735; 84439; 84443; 85025

== ENCOUNTER 2023-12-09 13:38 | Outpatient (CLI) | payer MEDICARE, SELFPAY ==
[2023-12-09 18:50] LABS: Basophils % 0.6 % (0.1-2.0); Eosinophils # 0.2 K/mm3 (0.0-0.4); Eosinophils % 3.6 % (0.1-12.0); Hematocrit 40.4 % (37.0-47.0); Hemoglobin 12.5 g/dL (12.2-16.2); Lymphocytes # 1.3 K/mm3 (0.7-4.5); Lymphocytes % 23.4 % (10-50); Mean Corpuscular HGB Conc 30.9 g/dL (31.8-35.4); Mean Corpuscular Hemoglobin 33.1 pg (27.0-31.2); Mean Platelet Volume 10.2 fl (7.4-10.4); Monocytes # 0.5 K/mm3 (0.1-1.0); Monocytes % 8.6 % (1.7-9.3); Neutrophils # 3.5 K/mm3 (1.8-7.8); Neutrophils % 63.8 % (37.0-80.0); Platelet Count 294 K/mm3 (142-424); Red Blood Count 3.77 M/mm3 (4.20-5.40); Red Cell Distribution Width 14.9 % (11.5-17.5); White Blood Count 5.4 K/mm3 (4.8-10.8)
[2023-12-11 08:38] LABS: HBsAg Screen Negative (Negative); HCV Ab Non Reactive (Non Reactive); Hep A Ab, IGM Negative (Negative); Hep B Core Ab, IgM Negative (Negative)
== END 2023-12-09 23:59 | disposition home or self-care (01) ==
LOC: LAB.DROPOF 12-10 13:39
PROVIDERS: PCP Internal Medicine; Visit Provider Internal Medicine
DX: E78.5 Hyperlipidemia, unspecified (principal); K74.60 Unspecified cirrhosis of liver
CPT/HCPCS: 80074; 85025

== ENCOUNTER 2023-12-31 10:07 | Outpatient (CLI) | payer MEDICARE, SELFPAY ==
--- NOTE | 2023-12-31 10:11 | XR_ITS ---
FINAL REPORT CLINICAL HISTORY: right tka COMPARISON: 12/31/2022 FINDINGS: 3 views of the right knee were obtained. There is a total joint prosthesis. There is no acute fracture or dislocation. Osteophytes are noted along the undersurface of the patella. There is a small joint effusion. There is no acute soft tissue abnormality. IMPRESSION: Total joint prosthesis. Osteophytes and small joint effusion. Reviewed, Interpreted and Dictated by Mike Stapleton MD Transcribed by Patricia Brito Authenticated and [facility]
== END 2023-12-31 23:59 | disposition home or self-care (01) ==
LOC: RAD 10:09
PROVIDERS: PCP Internal Medicine; Visit Provider Physician Assistant
DX: M25.561 Pain in right knee (principal)
CPT/HCPCS: 73562

== ENCOUNTER 2024-01-05 20:48 | Outpatient (CLI) | payer MEDICARE, SELFPAY ==
[2024-01-05 22:47] LABS: Creatinine,Urine Random 76 mg/dL (Not Estab.); Microalbumin < 6.000 mg/L (0-16.7)
== END 2024-01-05 23:59 | disposition home or self-care (01) ==
PROVIDERS: PCP Internal Medicine; Visit Provider Internal Medicine
DX: R73.03 Prediabetes (principal)
CPT/HCPCS: 82043; 82570

== ENCOUNTER → 2024-08-05 20:11 | Outpatient (CLI) | payer MEDICARE, SELFPAY ==
--- OUTSIDE RECORDS SUMMARY | 2024-08-05 20:14 | XMS_ITS ---
Author Organization Unknown Patient Care team information Name Category Status Period Participants - - Proposed period not known -
== END ==
LOC: SL 20:13
PROVIDERS: PCP Family Medicine; Visit Provider Specialist
DX: G47.33 Obstructive sleep apnea (adult) (pediatric) (principal); G47.30 Sleep apnea, unspecified
CPT/HCPCS: 95811

== ENCOUNTER 2024-09-01 18:55 | Outpatient (CLI) | payer MEDICARE, SELFPAY ==
[2024-09-01 20:10] LABS: Alanine Aminotransferase 15 U/L (12-78); Albumin Level 4.2 g/dl (3.5-5.0); Albumin/Globulin Ratio 1.8 (1.1-1.8); Alkaline Phosphatase 79 U/L (38-126); Anion Gap 6.5 mEq/L (5-15); Aspartate Amino Transferase 24 U/L (14-36); Bilirubin,Total 0.5 mg/dl (0.2-1.3); Blood Urea Nitrogen 20 mg/dl (7-17); Carbon Dioxide 30 mmol/L (22.0-30.0); Chloride 102 mmol/L (98-107); Chol/HDL Ratio 3.3 (1-3.5); Cholesterol 137 mg/dl (140-200); Estimated Glomerular Filt Rate 82 ml/min (>60); GFR (African American) 100 ML/MIN (>60); Globulin 2.4 g/dL (1.3-3.2); Glucose 73 mg/dl (74-100); HDL Cholesterol 42 mg/dl (40-60); Potassium 4.5 mmoL/L (3.5-5.1); Sodium 134 mmol/L (136-145); Total Protein,Serum 6.6 g/dl (6.3-8.2); Triglycerides 107 mg/dl (30-150); VLDL Cholesterol 21 mg/dL (0-40)
[2024-09-01 20:21] LABS: Direct LDL Cholesterol 59.13 mg/dL (100-129)
== END 2024-09-01 23:59 | disposition home or self-care (01) ==
LOC: LAB.DROPOF 18:55
PROVIDERS: PCP Family Medicine; Visit Provider Family Medicine
DX: E03.9 Hypothyroidism, unspecified (principal); E78.2 Mixed hyperlipidemia; I10 Essential (primary) hypertension; M1A.9XX0 Chronic gout, unspecified, without tophus (tophi)
CPT/HCPCS: 80053; 80061; 84443; 84550

== ENCOUNTER 2024-09-03 16:07 | Outpatient (CLI) | payer MEDICARE, SELFPAY ==
--- OUTSIDE RECORDS SUMMARY | 2024-09-03 16:10 | XMS_ITS | Clinical Summary ---
Author Organization Healthcare Address [address] [id number] Care Team Providers Care Film Editor Supervisor Name Role Phone Dayron Chavarria MD Primary Care Provider [phone]- [phone] Family History Medical History Relation Name Comments Coronary artery disease Other 1 Diabetes Other 2 Relation Name Status Comments Other 1 Other 2 Social History Tobacco Use Types Packs/Day Years Used Date Smoking Tobacco: Never Alcohol Use Standard Drinks/Week Comments No 0 (1 standard drink = 0.6 oz pur e alcohol) Comments Unknown Sex and Gender Information Value Date Recorded Sex Assigned at Not on file Legal Sex Female 8:43 PM EDT Gender Identity Not on file Sexual Orientation Not on file Last Filed Vital Signs Vital Sign Reading Time Taken Comments Blood Pressure 128/59 08/23/2022 1:29 PM EDT Pulse 80 08/23/2022 1:29 PM EDT Temperature - - Respiratory Rate - - Oxygen Saturation - - Inhaled Oxygen Concentration - - Weight 69.9 kg (154 lb) 08/23/2022 1:29 PM EDT Height 157.5 cm (5' 2 ) 08/23/2022 1:29 PM EDT Body Mass Index 28.17 08/23/2022 1:29 PM EDT Plan of Treatment Health Maintenance Due Date Last Done Comments [facility]-Bone Density Scan 1955 [facility]-Depression Screening 1955 [facility]-/Child/Adol SDOH Screenings 1955 [facility]- SDOH Screenings 07/05/1971 [facility]-Adult SDOH Screenings 07/05/1971 CT Colonography 1998 Colonoscopy 1998 FIT-DNA 1998 FIT 1998 FOBT 1998 Sigmoidoscopy 1998 [facility]-Colorectal Cancer Screening 1998 [facility]-Zoster Vaccines (1 of 2) 07/05/2003 [id number] Vaccine ( season) 2023 04/10/2022, 01/22/2021, 06/28/2020, Additional history exists [facility]-Influenza Vaccine (Season Ended) 2024 01/30/2022, 04/03/2018, 01/21/2017 [facility]-DTaP,Tdap,and Td Vaccines (2 - Td or Tdap) 12/04/2026 12/04/2016 [facility]-RSV Vaccine: 60+ Years or (1 - 1-dose 75+ series) 2028 [facility]-Pneumococcal Vaccine: 50+ Years Completed 05/24/2020, 07/31/2018 HPV Vaccines Aged Out No longer eligi ble based on patient's age to complete this topic [facility]-HIB Vaccines Aged Out No longer e ligible based on patient's age to complete this topic [facility]-Hepatitis A Vaccines Aged Out No longer eligible based on patient's age to complete this topic [facility]-IPV Vaccines Aged Out No longer e ligible based on patient's age to complete this topic [facility]-Rotavirus Vaccines Aged Out No lo nger eligible based on patient's age to complete this topic Insurance [place] [id number] [employer] Care Teams Film Editor Supervisor Relationship Specialty Start Date End Date Dayron Chavarria MD [address] [place] [id number] PCP - General 08/11/20
--- NOTE | 2024-09-03 16:30 | MM_ITS ---
PROCEDURE INFORMATION: Exam: MG Bilateral Screening 3D Mammography Exam date and time: 09/03/2024 4:11 PM Age: 69 years old Clinical indication: Screening examination TECHNIQUE: Imaging protocol: Bilateral Screening tomosynthesis and 2D mammography including computer-aided detection (CAD) when performed. COMPARISON: 1. MG MM DIG SCREENING MAMM BI W/CAD 08/05/2023 8:08 AM 2. MG MM DIG SCREENING MAMM BI W/CAD 08/23/2021 3:30 PM FINDINGS: MAMMOGRAPHY: Breast composition: There are scattered areas of fibroglandular density. Mass: No suspicious masses. Architectural distortion: None. Calcifications: No suspicious calcifications. Asymmetric density: None. Skin thickening: None. Axillary adenopathy: None. IMPRESSION: No mammographic evidence of malignancy. Annual screening is recommended unless otherwise clinically indicated. ASSESSMENT: BI-RADS Category 1: Negative.
== END 2024-09-03 23:59 | disposition home or self-care (01) ==
LOC: RAD 16:08
PROVIDERS: PCP Family Medicine; Visit Provider Family Medicine
DX: Z12.31 Encounter for screening mammogram for malignant neoplasm of breast (principal); R92.323 Mammographic fibroglandular density, bilateral breasts
CPT/HCPCS: 77063; 77067

== ENCOUNTER 2024-09-22 12:11 | Outpatient (CLI) | payer MEDICARE, SELFPAY ==
--- NOTE | 2024-09-22 | CA_ITS ---
APPROVED REPORT Exam: Pharmacologic Technologist: Andreia Guzman Ht: 5 ft 2 in Wt: 151 lbs BSA: 1.70 m2 HR: 64 bpm BP: 141/64 mmHg Stress Test Details Test: Lexiscan HR Resting HR: 64 bpm Max Heart Rate (APMHR): 149.756883 bpm Max HR Achieved: 79 bpm Target HR (85% APMHR): 126.096983 bpm % of APMHR: 53.02 Recovery HR: 74 bpm BP Resting BP: 141.0/64.0 mmHg Max BP: 141.0/64.0 mmHg Recovery BP: 129.0/56.0 mmHg ECG Resting ECG: Sinus rhythm, PVC Stress ECG Conclusion Symptoms: None Arrhythmias/Ectopy: Lexiscan Electronically signed by : Kaur Viera MD 09/22/2024 22:50:49
--- OUTSIDE RECORDS SUMMARY | 2024-09-22 12:14 | XMS_ITS | Clinical Summary ---
Author Organization Healthcare Address [address] [id number] Care Team Providers Care Twill Cutter Name Role Phone Dayron Chavarria MD Primary Care Provider [phone]- [phone] Family History Medical History Relation Name Comments [...] 1998 [facility]-Zoster Vaccines (1 of 2) 07/05/2003 [id number] Vaccine ( season) 2023 04/10/2022, 01/22/2021, 06/28/2020, [...] to complete this topic Insurance [place] [id number] [employer] Care Teams Twill Cutter Relationship Specialty Start Date End Date Dayron Chavarria MD [address] [place] [id number] PCP - General 08/11/20
--- NOTE | 2024-09-22 12:30 | NM_ITS ---
APPROVED REPORT Exam: Nuclear Stress Test Indication: chest pain Patient Location: Outpatient Stress Tech: Andreia Guzman HI Tech:Natasha Mcguire EMY RT(R)(N) Ht: 5 ft 0 in Wt: 147 lbs Bra Size: 36b HR: 65 bpm BP: 141/64 mmHg BSA: 1.64 m2 TID: 1.19 History: chest pain Procedure: Patient received 0.4 mg of intravenous Lexiscan, resting heart rate 65 bpm, resting blood pressure 141/64 mmHg, with Lexiscan maximum heart rate achieved was 81 bpm which is 85 % of the maximum predicted heart rate and blood pressure was 135/78 mmHg. With Lexiscan, patient denied any complaint of chest pain. Cardiac Stress and Resting SPECT Images: Cardiac Stress and Resting SPECT images were obtained using technetium 99m Myoview 32.1 mCi stress and 10.62 mCi at rest. Resting and stress imaging in supine and prone positions demonstrate a small sized, moderate, fixed perfusion defect in the basal inferior and lateral LV buenrostro. Gated imaging demonstrates mild reduction global LV systolic function. There is moderate hypokinesis of the basal inferior LV wall. LVEF is calculated at 45%. Conclusion: Small sized, moderate, fixed perfusion defect in the basal inferior and lateral LV buenrostro. No evidence of reversible ischemia. Gated imaging demonstrates mild reduction global LV systolic function. There is moderate hypokinesis of the basal inferior LV wall. LVEF is calculated at 45%. Correlation with new or recent TTE is suggested. Electronically signed by : Kaur Viera MD 09/22/2024 22:46:01
[2024-09-22] MEDS: REGADENOSON 0.4MG/5ML SYRINGE 0.4 MG IV (13:46)
[2024-09-22] MEDS: ISOTOPE MYOVIEW (PER STUDY) 1 DOSE IV (13:47)
[2024-09-22] MEDS: SODIUM CHLORIDE 0.9% 10ML SYR (RAD ONLY) 10 ML IV ×2 (13:47)
== END 2024-09-22 23:59 | disposition home or self-care (01) ==
LOC: RAD 12:12
PROVIDERS: PCP Family Medicine; Visit Provider Physician Assistant
DX: R94.39 Abnormal result of other cardiovascular function study (principal); I25.10 Atherosclerotic heart disease of native coronary artery without angina pectoris; I10 Essential (primary) hypertension; K21.9 Gastro-esophageal reflux disease without esophagitis; R94.31 Abnormal electrocardiogram [ECG] [EKG]
CPT/HCPCS: 78452; 93017; 93018; A9502; J2785

== ENCOUNTER 2024-10-14 08:18 | Day surgery (SDC) | payer MEDICARE, SELFPAY ==
[2024-10-14] VITALS (20 sets, daily range): BP systolic 128–167; BP diastolic 64–84; PULSE 61–75; RESP 18–19; TEMP 37; O2SAT 89–98; BMI 27.6
--- NOTE | 2024-10-14 07:10 | IR_ITS ---
APPROVED REPORT Patient Location: Outpatient PROCEDURES Left heart catheterization Left ventriculogram Selective coronary angiogram INDICATION Coronary artery disease, History of coronary artery stenting, Abnormal Myoview Informed consent was obtained prior to the procedure. COMPLICATIONS NONE Estimated Blood Loss: LESS THAN 10 ML TECHNIQUE One percent lidocaine was used to anesthetize the right groin. The right femoral artery was accessed via the Seldinger technique. A 4-Tajik sheath was placed in the right femoral artery. The JL-4 and JR-4 catheter was also used to perform left heart catheterization left ventriculogram and selective coronary angiogram. At the end of the procedure the patient was transferred to the post-op holding area in stable condition for arterial sheath removal. ANGIOGRAPHIC RESULTS The left anterior descending artery Originates from the left coronary cusp has proximal 10 to 20% tandem stenoses with mid vessel 20% stenosis The circumflex artery Originates from the right coronary cusp has stents in the ostial proximal mid and distal segment which are widely patent with a focal area of 30% in-stent restenosis The right coronary artery Dominant originates in the right coronary cusp has a stent in the ostial proximal and mid segment which are widely patent with minimal in-stent restenosis and excellent distal transitioning The DALEY ventriculogram reveals Dilated ejection fraction 40% The left ventricular end-diastolic pressure 20 mmHg IMPRESSION Coronary artery disease as described above Reduced ejection fraction Elevated LVEDP PLAN 1. Medical management 2. Consider cardiac MRI for reduced ejection fraction if clinically appropriate 3. Aggressive risk factor modification Electronically signed by : Pool Marquez MD 10/14/2024 13:41:10
[2024-10-14 08:51] LABS: Hematocrit 37.2 % (37.0-47.0); Hemoglobin 12.4 g/dL (12.2-16.2); Immature Granulocytes % 0.2 %; Mean Corpuscular HGB Conc 33.3 g/dL (31.8-35.4); Mean Corpuscular Hemoglobin 32.3 pg (27.0-31.2); Mean Corpuscular Volume 96.9 fl (81-99); Nucleated Red Blood Cells % 0 %; Platelet Count 301 K/mm3 (142-424); Red Blood Count 3.84 M/mm3 (4.20-5.40); Red Cell Distribution Width-SD 50.8 fL; White Blood Count 6.5 K/mm3 (4.8-10.8)
[2024-10-14 09:02] LABS: Anion Gap 14.9 mEq/L (5-15); Blood Urea Nitrogen 18 mg/dl (7-17); Calcium 9.3 mg/dl (8.4-10.2); Carbon Dioxide 29 mmol/L (22.0-30.0); Chloride 101 mmol/L (98-107); Creatinine Clearance Estimated 56 mL/min (50-200); Creatinine,Serum 0.70 mg/dl (0.52-1.04); Estimated Glomerular Filt Rate 82 ml/min (>60); GFR (African American) 100 ML/MIN (>60); Glucose 97 mg/dl (74-100); Potassium 3.9 mmoL/L (3.5-5.1); Sodium 141 mmol/L (136-145)
[2024-10-14] MEDS: 0.9 % SODIUM CHLORIDE 500 ML 25 ML IV (09:38)
[2024-10-14] MEDS: LIDOCAINE 1% 10ML MDV 10 ML IJ (09:38)
[2024-10-14] MEDS: HEPARIN 1,000 UNITS/500ML NS (CATH LAB) 3000 UNIT IV (09:38)
[2024-10-14] MEDS: VERAPAMIL 2.5MG/ML 2ML VIAL 2.5 MG IV (09:38)
[2024-10-14] MEDS: NITROGLYCERIN 800MCG/8ML SYR (CATH LAB) 800 MCG IA (09:39)
[2024-10-14] MEDS: HEPARIN 1,000 UNITS/ML 10ML VIAL (CATH LAB) 5000 UNIT IV (09:48)
[2024-10-14] MEDS: FENTANYL 100MCG/2ML VIAL 50 MCG IV (10:12)
[2024-10-14] MEDS: MIDAZOLAM HCL 1MG/ML 5ML VIAL 1 MG IV (10:13)
[2024-10-14] MEDS: IOPAMIDOL-370 (76%);100ML BOTTLE 60 ML IV (11:51)
== END 2024-10-14 14:40 | disposition home or self-care (01) ==
PROVIDERS: PCP Family Medicine; Visit Provider Internal Medicine
PROC: 4A023N7 Measurement of Cardiac Sampling and Pressure, Left Heart, Percutaneous Approach (ICD-10-PCS; CPT 93452; principal; 2024-10-14 10:00)
DX: I25.118 Atherosclerotic heart disease of native coronary artery with other forms of angina pectoris (principal); G47.33 Obstructive sleep apnea (adult) (pediatric); K21.9 Gastro-esophageal reflux disease without esophagitis; E78.5 Hyperlipidemia, unspecified; I10 Essential (primary) hypertension; F32.A Depression, unspecified; I42.9 Cardiomyopathy, unspecified; E89.0 Postprocedural hypothyroidism; G89.29 Other chronic pain; M54.50 Low back pain, unspecified; I73.9 Peripheral vascular disease, unspecified; Z95.5 Presence of coronary angioplasty implant and graft; Z82.49 Family history of ischemic heart disease and other diseases of the circulatory system; Z82.3 Family history of stroke; Z88.8 Allergy status to other drugs, medicaments and biological substances; Z79.899 Other long term (current) drug therapy; Z79.83 Long term (current) use of bisphosphonates; Z79.82 Long term (current) use of aspirin; Z79.02 Long term (current) use of antithrombotics/antiplatelets; Z79.890 Hormone replacement therapy; Z87.891 Personal history of nicotine dependence; Z98.62 Peripheral vascular angioplasty status
CPT/HCPCS: 80048; 85025; 93452; 99152; 99153; C1725; C1769; J1200; J1644; J3010; J7040; Q9967

== ENCOUNTER 2024-12-29 14:11 | Outpatient (CLI) | payer MEDICARE, SELFPAY ==
--- NOTE | 2024-12-29 14:13 | XR_ITS ---
FINAL REPORT CLINICAL HISTORY: right knee pain knee rep 3 yrs ago COMPARISON: 12/31/2023 FINDINGS: RIGHT KNEE: The patient has undergone a prior total knee arthroplasty, also seen on the prior exam of 12/31/2023. A small joint effusion is present. The hardware is intact. There is no new soft tissue abnormality. IMPRESSION: Right total knee arthroplasty, with a small joint effusion. Reviewed, Interpreted and Dictated by Mike Stapleton MD Transcribed by Anny Flores Authenticated and [facility]
--- OUTSIDE RECORDS SUMMARY | 2024-12-29 14:16 | XMS_ITS | Clinical Summary ---
Author Organization [facility] Address [address] [place] [address] Care Team Providers Care Field Marketing Representative Name Role Phone Dayron Chavarria MD Primary Care Provider Allergies No known active allergies Medications FLUoxetine (PROzac) 20 MG capsule Take 20 mg by mouth daily. Active Biotin (BIOTIN MAXIMUM STRENGTH) 10 MG tablet Take 10 mg by mouth Daily. Active esomeprazole (NexIUM) 20 MG capsule Take 40 mg by mouth Every Night. Active furosemide (LASIX) 20 MG tablet Take 20 mg by mouth 2 (Two) Times a Day. Active vitamin B-12 (CYANOCOBALAMIN ) 500 MCG tablet Take 1,000 mcg by mouth Daily. Active pyridoxine (VITAMIN B-6) 100 MG tablet Take 100 mg by mouth daily. Active [place]-3 Fatty Acids (OMEGA-3 FISH OIL) 1000 MG capsule Take 2,400 mg by mouth Daily. Active Multiple Vitamins-Minera ls (MULTIVITAMIN ADULT PO) Take 1 tablet by mouth Daily. Active lisinopril (PRINIVIL,ZESTR IL) 20 MG tablet Take 20 mg by mouth daily. Active potassium chloride (K-DUR) 10 MEQ CR tablet Take 10 mEq by mouth Daily. Active docusate sodium (COLACE) 100 MG capsule Take 100 mg by mouth Daily. Active chlorpheniramin e (CHLOR-TRIMETON ) 4 MG tablet Take 4 mg by mouth Every Night. Active acetaminophen (TYLENOL) 500 MG tablet Take 1,000 mg by mouth Every 6 (Six) Hours As Needed for mild pain (1-3). Active Misc Natural Products (GREEN TEA SLIM PO) Take 1 tablet by mouth 2 (Two) Times a Day. Active oxyCODONE-aceta minophen (PERCOCET) 7.5-325 MG per tabletIndicatio ns:Post-op pain Take 1 tablet by mouth Every 6 (Six) Hours As Needed for severe pain (7-10). 60 tablet 7 Active simethicone (MYLICON) 80 MG chewable tablet Chew 80 mg Every 6 (Six) Hours As Needed for flatulence. Active gabapentin (NEURONTIN) 800 MG tablet Take 1 tablet by mouth 4 (Four) Times a Day. 120 tablet 3 7 Active nortriptyline (PAMELOR) 10 MG capsule 1-2 TABLETS AT BEDTIME 60 capsule 3 7 Active meloxicam (MOBIC) 7.5 MG tablet Take 1 tablet by mouth 2 (Two) Times a Day As Needed for moderate pain (4-6) (to severe breakthrough pain). 60 tablet 3 7 Active tiZANidine (ZANAFLEX) 2 MG tablet Take half to 1 tablet three times a day as needed for muscle spasms. 270 tablet 1 7 Active Active Problems Problem Noted Date Diagnosed Date Sacroiliac joint dysfunction of left side 2016 Osteoarthritis of one hip 05/07/2016 Physical deconditioning 05/07/2016 Lumbar foraminal stenosis, left L5-S1 05/07/2016 Failed back syndrome of lumbar spine 04/24/2016 Spondylolisthesis of lumbar region 01/24/2016 Family History Medical History Relation Name Comments No Known Problems Father No Known Problems Mother Relation Name Status Comments Father Mother Social History Tobacco Use Types Packs/Day Years Used Date Smoking Tobacco: Former Cigarettes 1.5 15 1 04/18/1983 - 02/16/1999 Smokeless Tobacco: Never Alcohol Use Standard Drinks/Week Comments No 0 (1 standard drink = 0.6 oz pur e alcohol) Abuse Screen Answer Date Recorded Unsafe at Home or Work/School Not on file Feels Threatened by Someone? Not on file 01/2023 Does Anyone Keep You from Co ntacting Others or Doint Things Outside the Home? Not on file 01/08/2023 Physical Sign of Abuse Present Not on file 1 Housing Stability Answer Date Recorded Current Living Arrangements Not on file 12/29 Potentially Unsafe Housing Conditions Not on alina e 01/08/2023 Family and Community Support Answer Iam e Recorded Help with Day-to-Day Activities Not on file 01/08/2023 Lonely or Isolated Not on file 01/08/2023 Employment Answer Date Recorded Do you want help finding or keeping work or a remi b? Not on file 01/08/2023 Disabilities Answer Date Recorded Concentrating, Remembering, or Making Decisions Difficulty Not on file 01/08/2023 Doing Errands Independently Difficulty Not on fi le 01/08/2023 Education Answer Date Recorded Help with school or training? Not on file Preferred Language Not on file 01/08/2023 Comments No Sex and Gender Information Value Date Recorded Sex Assigned at Not on file Legal Sex Female 1:42 PM EDT Gender Identity Not on file Sexual Orientation Not on file Last Filed Vital Signs Vital Sign Reading Time Taken Comments Blood Pressure 145/74 05/07/2016 6:46 AM EST Pulse 76 05/07/2016 6:46 AM EST Temperature 36.1 C (97 F) 05/07/2016 6:46 AM EST Respiratory Rate 20 05/07/2016 6:46 AM EST Oxygen Saturation 95% 05/07/2016 6:46 AM EST Inhaled Oxygen Concentration - - Weight 72.6 kg (160 lb) 05/07/2016 6:46 AM EST Height 157.5 cm (5' 2 ) 05/07/2016 6:46 AM EST Body Mass Index 29.26 05/07/2016 6:46 AM EST Plan of Treatment Health Maintenance Due Date Last Done Comments DXA SCAN 1955 TDAP/TD VACCINES (1 - Tdap) 1972 MAMMOGRAM 1993 COLOGUARD 1998 COLON CANCER SCREENING 5 YEAR SIGMOIDOSCOPY 1998 COLONOSCOPY 1998 COL[address]AL CANCER SCREENING 1998 CT COLONOGRAPHY 1998 FECAL OCCULT BLOOD TEST 1998 FIT Testing (1 year) 1998 Pneumococcal Vaccine 50+ (1 of 1 - PCV) 07/05/2003 ZOSTER VACCINE (1 of 2) 07/05/2003 ANNUAL PHYSICAL 09/04/2016 HEPATITIS C SCREENING 09/04/2016 INFLUENZA VACCINE 10/29/2024 COVID-19 Vaccine ( season) 2024 Medical Devices Implanted Type Area Structural Steel Engineer Device Identifier Shelf Expiration Date Model / Serial / Lot Granules Osteocond Mstrgrft Ceram 5 - [id number] Implanted:Qty: 2 on 01/24/2016 by David Sorto MD at [facility] Implant N/A: Spine Lumbar MED[employer]IC 11/29/2020 [id number] / / Orthoblend Dbm [place]ob[place]a 10cc Sm - [id number] Implanted:Qty: 1 on 01/24/2016 by David Sorto MD at [facility] Implant N/A: Spine Lumbar [employer]IC 11/29/2016 [id number] / / Cage Wave D 6d 9x24mm - [id number] Implanted:Qty: 1 on 01/24/2016 by David Sorto MD at [facility] Implant N/A: Spine Lumbar MEDTRONIC 09/06/2023 [id number] / / Cage Wave D 6d 35x03pi - [id number] Implanted:Qty: 1 on 01/24/2016 by David Sorto MD at [facility] Implant N/A: Spine Lumbar MEDTRONIC 02/28/2023 [id number] / / Duralmatrix Duragen Pls 3x3in 5pk - [id number] Implanted:Qty: 1 on 01/24/2016 by David Sorto MD at [facility] Implant N/A: Spine Lumbar INTEGRA 09/27/2018 [id number] / / Scrw Solera Mas 4.75mm 5.5x45mm - [id number] Implanted:Qty: 6 on 01/24/2016 by David Sorto MD at [facility] Implant N/A: Spine Lumbar [employer] [id number] / / Scrw St Breakoff Solera Ti 4.75 - [id number] Implanted:Qty: 6 on 01/24/2016 by David Sorto MD at [facility] Implant N/A: Spine Lumbar [employer]IC [id number] / / Jose Eduardo Solera Cocr Prebnt 4.87l530uh - [id number] Implanted:Qty: 2 on 01/24/2016 by David Sorto MD at [facility] Implant N/A: Spine Lumbar [employer]ON[employer] [id number] / / Insurance [employer] H[employer] Advance Directives Documents on File Type Date Recorded Patient 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
--- OUTSIDE RECORDS SUMMARY | 2024-12-29 14:16 | XMS_ITS | Clinical Summary ---
Author Organization Healthcare Address [address] [place] [address] Care Team Providers Care Intellectual Property Legal Assistant Name Role Phone Dayron Chavarria MD Primary Care Provider [phone] Family History Medical History Relation Name Comments [...] [facility]-Bone Density Scan 1953 [facility]-Depression Screening 1953 [facility]-Infant/Child/Adol SDOH Screenings 1955 [facility]- SDOH Screenings 07/05/1971 [facility]-Adult SDOH Screenings 07/05/1971 CT Colonography 1998 Colonoscopy 1998 FIT-DNA 1998 FIT 1998 FOBT 1998 Sigmoidoscopy 1998 [facility]-Colorectal Cancer Screening 1998 [facility]-Zoster Vaccines (1 of 2) 07/05/2003 [id number] Vaccine ( season) 2024 04/10/2022, 01/22/2021, 06/28/2020, Additional history exists [facility]-Influenza Vaccine (#1) 11/29/202401/30, 04/03/2018, 01/21/2017 [facility]-DTaP,Tdap,and Td Vaccines (2 - [...] to complete this topic Insurance [place] [id number] [employer] MEDIC[employer] Care Teams Intellectual Property Legal Assistant Relationship Specialty Start Date End Date Dayron Chavarria MD [address] [place] [id number] PCP - General 08/11/20
== END 2024-12-29 23:59 | disposition home or self-care (01) ==
LOC: RAD 14:12
PROVIDERS: PCP Family Medicine; Visit Provider Physician Assistant
DX: M25.461 Effusion, right knee (principal); Z96.651 Presence of right artificial knee joint
CPT/HCPCS: 73562

== ENCOUNTER 2025-01-10 07:58 | Day surgery (SDC) | payer MEDICARE, SELFPAY ==
[2025-01-04 14:42] VITALS: BMI 29.0
--- NOTE | 2025-01-05 12:22 | EXP.HP ---
History of Present Illness *Admission Date: 01/10/25 *History of present illness: Mrs. Thomas is a 69-year-old female who is here for diagnostic EGD. The patient has had chronic GERD for the last 10 years. She has been on Nexium which controls her heartburn. She has had some noncardiac chest pain which has been felt to be related to her reflux. The patient does have a history of CASHD and prior drug-eluting coronary stents x 7. She has never had an upper endoscopy. The patient has been cleared by cardiology. The examination is deemed medically necessary for diagnostic EGD. The patient has been seen, interviewed and examined prior to the procedure by both myself and the anesthesia provider. [facility] Disclaimer: The information contained in this section may have been updated after the patient was seen, as this information can be updated by other users. Medical History ARIANNA (obstructive sleep apnea) Hypothyroidism Abnormal electrocardiogram [ECG] [EKG] Dyspnea Body mass index (BMI) of 25.0 to 29.9 Chronic low back pain without sciatica Depression Dystrophia unguium Gastroesophageal reflux disease Goiter Hyperlipidemia Hypertension Incurvated nail Keratosis Low back pain Onychomycosis Overweight with body mass index (BMI) 25.0-29.9 Abnormal ankle brachial index (JOLLY) Carpal tunnel syndrome on both sides Sleep apnea History of gastroesophageal reflux (GERD) Thyroid cancer Ex-smoker Daytime somnolence Snoring Chest pain Surgical History History of tonsillectomy and adenoidectomy History of carpal tunnel surgery of right wrist History of carpal tunnel surgery of left wrist History of arthroplasty of right knee H/O heart artery stent History of cardiac cath has had 2 Status post partial thyroidectomy History of hysterectomy History of cholecystectomy History of back surgery History of left hip replacement Family History Other Family history of cancer Family history of hypertension Family history of myocardial infarction Family history of stroke No significant family history Social History Smoking Status: Former smoker alcohol intake: never substance use type: denies use current occupational status: other Travel in the last 8 weeks?: None household members: family housing: house caffeine: Yes Have you lived/traveled outside US in past 30 days?: No Contact w/someone who lives/traveled outside US past 30 days?: No Exposure to someone with infectious disease in past 14 days?: No Do you have a fever (greater than 100.4 F or 38 C)?: No Have you tested positive for COVID-19?: No Exposed to someone with COVID-19 in past 14 days?: No Do you have a sore throat?: No Do you have a cough?: No Do you have any weakness?: No Do you have any diarrhea?: No Are you experiencing any unusual bleeding?: No Do you have any muscle aches/pain?: No Do you have any abdominal pain?: No Are you experiencing loss of taste or smell?: No Other Medical History Have you received the Flu Vaccine for this season: No Have you received the Pneumonia Vaccine: Yes Review of Systems Review of Systems Review of systems (narrative): Negative *Cardiovascular Comments: Negative *Gastrointestinal Comments: Negative *Genitourinary Comments: Negative *Musculoskeletal Comments: Negative *Neurologic Comments: Negative Meds Home Medications and Allergies Home Medications ?Medication ?Instructions ?Recorded ?Confirmed ?Type biotin 1,000 mcg chewable tablet 1,000 mcg PO DAILY 04/10/17 01/10/25 History aspirin 81 mg tablet,delayed 81 mg PO DAILY 30 days #30 tabs 11/05/23 01/10/25 Rx release esomeprazole magnesium 20 mg 20 mg PO DAILY 11/11/23 01/10/25 History tablet,delayed release (Nexium 24HR) multivitamin (Multiple Vitamins 1 tab PO DAILY 11/11/23 01/10/25 History tablet) atorvastatin 80 mg tablet 80 mg PO HS Cholesterol #90 tabs 01/26/24 01/10/25 Rx fluoxetine 20 mg capsule 20 mg PO DAILY #90 caps 01/26/24 01/10/25 Rx losartan 100 mg tablet 100 mg PO DAILY #90 tabs 02/09/24 01/10/25 Rx prazosin 2 mg capsule 2 mg PO HS #30 caps 02/09/24 01/10/25 Rx alendronate 70 mg tablet 70 mg PO WEEKLY 12 months #52 tabs 03/03/24 01/04/25 Rx baclofen 20 mg tablet 20 mg PO TID 90 days #270 tabs 03/03/24 01/10/25 Rx furosemide 20 mg tablet 20 mg PO BID 90 days #180 tabs 03/03/24 01/10/25 Rx levothyroxine 25 mcg tablet 25 mcg PO DAILY 90 days #90 tabs 03/03/24 01/10/25 Rx mecobalamin (vitamin B12) 500 mcg 500 mcg PO DAILY 05/31/24 01/10/25 History chewable tablet calcium 500 mg (as 1 tab PO ONCE 06/10/24 01/10/25 History carbonate)-vitamin D3 5 mcg (200 unit) tablet clopidogrel 75 mg tablet 75 mg PO DAILY #30 tabs 08/24/24 01/10/25 Rx amlodipine 10 mg tablet 10 mg PO DAILY 09/09/24 01/10/25 History isosorbide mononitrate 30 mg 30 mg PO DAILY #90 tabs 12/23/24 01/10/25 Rx tablet,extended release 24 hr allopurinol 300 mg tablet 300 mg PO DAILY 01/04/25 01/04/25 History potassium chloride 10 mEq 10 meq PO DAILY 01/04/25 01/10/25 History capsule,extended release tramadol 50 mg tablet 50 mg PO DAILY 01/04/25 01/10/25 History New Prescriptions to Start Prescriptions: Allergies Allergy/AdvReac Type Severity Reaction Status Date / Time lisinopril AdvReac Severe cough Verified 01/10/25 08:16 Exam Data for Last 24 hours I & O for Last 24 hours: Intake & Output 01/02/25 01/03/25 01/04/25 01/05/25 23:59 23:59 23:59 23:59 Weight 149 lb *Routine HEENT Exam Head: Present normocephalic Eye: Present EOMI and PERRL ENT: Present mucous membranes moist *Routine Neck Exam Neck: Present supple *Routine Respiratory Exam Respiratory: Present CTA bilaterally *Routine Cardiovascular Exam Cardiovascular: Present RRR *Routine Abdominal Exam Abdominal: Present soft and normoactive bowel sounds; Absent tenderness *Routine Rectal Exam Rectal:: deferred *Routine Genitalia Exam Genitalia:: deferred *Routine Extremities Exam Extremities: Absent cyanosis, clubbing or edema *Routine Skin Exam Skin: Present warm; Absent rash *Routine Neurological Exam Neurological: Present alert and oriented X3 Assessment and Plan *Assessment and plan (1) Chronic GERD: Status: Acute Category: Medical Code(s): K21.9 - Gastro-esophageal reflux disease without esophagitis (2) Non-cardiac chest pain: Status: Acute Category: Medical Code(s): R07.89 - Other chest pain Plan A/P: 1. Chronic GERD with intermittent presumed noncardiac chest pain/esophageal chest pain is the preprocedural diagnosis. The patient will be anesthetized/sedated using MAC sedation. The patient has been seen and examined. Cardiac and lung assessment prior to the examination is stable. Proceed with planned diagnostic EGD.
--- NOTE | 2025-01-10 07:03 | P.PCN_ITS ---
[facility] Procedure Note Date: 01/10/25 Time: 09:14 Procedure Note:: Upper Endoscopy Procedure Report: Esophagogastroduodenoscopy with cold biopsies Endoscopost: Khanh Hernandez II, MD Referring Physician: Luke Garcia MD Date of Procedure: January 10, 2025 Equipment: Olympus GIF-1100 standard upper endoscope Sedation: MAC sedation Indications: Mrs. Thomas is a 69-year-old female who is here for diagnostic EGD. The patient has had chronic GERD for the last 10 years. She has been on Nexium which controls her heartburn. She has had some noncardiac chest pain which has been felt to be related to her reflux. The patient does have a history of CASHD and prior drug-eluting coronary stents x 7. The chest pain has resolved. The patient does report a lot of belching, bloating and gassiness. She reports no nausea, early satiety, dysphagia or epigastric pain. She does have some chronic constipation for which she takes a fiber bowel regimen (combined MiraLAX plus Citrucel). She has never had an upper endoscopy. The patient has been cleared by cardiology. The examination is deemed medically necessary for diagnostic EGD. Procedure: Prior to the procedure, a history and physical exam was performed, and patient's medications and allergies were reviewed. The risks, benefits and alternatives of the sedation and procedure were discussed with the patient. All questions were answered and informed consent was obtained. The patient was brought to the procedure room. Patient identification and proposed procedure were verified by the physician and the nurse. The patient was placed in a left lateral decubitus position and the scope was passed under direct vision. Throughout the procedure, the patient's blood pressure, pulse, and oxygen saturations were monitored continuously. The upper GI endoscopy was accomplished without difficulty. The patient tolerated the procedure well. Findings: The scope was passed directly into the upper esophagus and advanced to the third portion of the duodenum. The post bulbar duodenum and duodenal bulb were normal with normal mucosa and conniventes. 2 cold biopsies were taken from the second portion of the duodenum for the disaccharidase assay. The scope was withdrawn through a normal duodenal bulb and pylorus into the stomach. There was some bile reflux with mild linear reactive gastropathy of the antrum. The body and fundus of the stomach were grossly normal. Cold biopsies were taken from the antrum. Upon retroflexion there was a medium size 4 to 5 cm hiatal hernia. The scope was then withdrawn into the esophagus. There was no evidence of reflux esophagitis or Valdivia's. There were tertiary contractions and evidence of mild esophageal dysmotility and presbyesophagus. The remainder of the esophageal mucosa was normal. Impression: 1. Nonerosive GERD with medium size 4 to 5 cm hiatal hernia and pre sbyesophagus/mild esophageal dysmotility 2. Bile reflux with mild linear reactive gastropathy of antrum Plan: I will follow-up the biopsies and disaccharidase assay. The patient primarily has gas driven reflux with moderate belching. This is likely multifactorial (obstipation and diet). We will discuss treatment options.
[2025-01-10 08:21] VITALS: BP 140/58; PULSE 71; RESP 18; TEMP 36.2; O2SAT 98
[2025-01-10] MEDS: LACTATED RINGERS 1000ML 1,000 ML 50 ML IV (08:32)
--- NOTE | 2025-01-10 08:40 | EXP.ANES.CKL ---
[facility] Disclaimer: The information contained in this section may have been updated after the patient was seen, as this information can be updated by other users. Medical History ARIANNA (obstructive sleep apnea) Hypothyroidism Abnormal electrocardiogram [ECG] [EKG] Dyspnea Body mass index (BMI) of 25.0 to 29.9 Chronic low back pain without sciatica Depression Dystrophia unguium Gastroesophageal reflux disease Goiter Hyperlipidemia Hypertension Incurvated nail Keratosis Low back pain Onychomycosis Overweight with body mass index (BMI) 25.0-29.9 Abnormal ankle brachial index (JOLLY) Carpal tunnel syndrome on both sides Sleep apnea History of gastroesophageal reflux (GERD) Thyroid cancer Ex-smoker Daytime somnolence Snoring Chest pain Surgical History History of tonsillectomy and adenoidectomy History of carpal tunnel surgery of right wrist History of carpal tunnel surgery of left wrist History of arthroplasty of right knee H/O heart artery stent History of cardiac cath has had 2 Status post partial thyroidectomy History of hysterectomy History of cholecystectomy History of back surgery History of left hip replacement Family History Other Family history of cancer Family history of hypertension Family history of myocardial infarction Family history of stroke No significant family history Social History Smoking Status: Former smoker alcohol intake: never substance use type: denies use current occupational status: other Travel in the last 8 weeks?: None household members: family housing: house caffeine: Yes Have you lived/traveled outside US in past 30 days?: No Contact w/someone who lives/traveled outside US past 30 days?: No Exposure to someone with infectious disease in past 14 days?: No Do you have a fever (greater than 100.4 F or 38 C)?: No Have you tested positive for COVID-19?: No Exposed to someone with COVID-19 in past 14 days?: No Do you have a sore throat?: No Do you have a cough?: No Do you have any weakness?: No Do you have any diarrhea?: No Are you experiencing any unusual bleeding?: No Do you have any muscle aches/pain?: No Do you have any abdominal pain?: No Are you experiencing loss of taste or smell?: No [facility] Anesthesia Checklist Patient Identification Patient Identification: Arm Band and Verbal (Name & ) Structural Data Admitted From: Home Planned Operative Procedure/s: EGD Consent for Planned Operative Procedure(s) Verified: Yes Verified Documents: Surgical Consent NPO Status Verified Time NPO: 00:00 Chart Verification Results Verified: ECG Additional verifications Anesthesia Reactions: No Hx Blood Transfusions: No Blood Transfusion Reaction: No Airway Assessment Mallampati Score:: Class II C-Spine Mobility Assessed: Yes TMJ Mobility Assessed: Yes Dentition: Edentulous Neurological Assessment Level of Consciousness: Awake, Alert and Appropriate Hx Seizures: No Numbness or tingling in extremities: No Anesthesia Plan Anesthesia Risk discussed: Yes Anesthesia Plan: Verified ASA Class: III Anesthesia Type: MAC
[2025-01-10 09:22] VITALS: BP 113/59; PULSE 57; RESP 16; TEMP 36.3; O2SAT 95
[2025-01-10 09:32] VITALS: BP 110/62; PULSE 58; RESP 16; TEMP 36.3; O2SAT 97
[2025-01-10 09:42] VITALS: BP 136/73; PULSE 66; RESP 16; TEMP 36.3; O2SAT 96
[2025-01-10 09:52] VITALS: BP 120/68; PULSE 61; RESP 17; TEMP 36.3; O2SAT 97
[2025-01-13 13:12] LABS: Interpretation Notes (.); Lactase 39.34 (>/= 14.0); Maltase 193.01 (>/= 110.0); Palatinase 13.91 (>/= 8.5); Reference Notes (.); Sucrase 53.03 (>/= 25.0)
== END 2025-01-10 10:20 | disposition home or self-care (01) ==
PROVIDERS: PCP Family Medicine; Visit Provider Internal Medicine Gastroenterology
PROC: 0DJ08ZZ Inspection of Upper Intestinal Tract, Via Natural or Artificial Opening Endoscopic (ICD-10-PCS; CPT 43239; principal; 2025-01-10 09:30)
DX: K21.9 Gastro-esophageal reflux disease without esophagitis (principal); K31.89 Other diseases of stomach and duodenum; K31.A0 Gastric intestinal metaplasia, unspecified; K59.09 Other constipation; K44.9 Diaphragmatic hernia without obstruction or gangrene; K22.4 Dyskinesia of esophagus; I10 Essential (primary) hypertension; E78.5 Hyperlipidemia, unspecified; E03.9 Hypothyroidism, unspecified; F32.A Depression, unspecified; Z88.8 Allergy status to other drugs, medicaments and biological substances; Z79.82 Long term (current) use of aspirin
CPT/HCPCS: 43239; 82657; 88305; J2003; J2704; J7120